=== PATIENT | male | born 1950 | race African-American/Black ===

== ENCOUNTER 2016-12-27 08:40 | Inpatient (IN) ==
[2016-12-27] MEDS ORDERED: ACETAMINOPHEN 325 MG TABLET PO PRN (08:50)
[2016-12-27 11:53] LABS: Basophils % 0.4 % (0.0-0.8); Eosinophils # 0.1 10*3/uL (0.0-0.87); Eosinophils % 1.9 % (0.00-10.9); Hematocrit 29.5 VOL% (42.0-52.0); Immature Granulocytes % 0.6 %; Immature Granulocytes Absolute 0.03 #; Lymphocytes # 1.1 10*3/uL (1.4-4.0); Lymphocytes % 23.8 % (21.2-54.2); Mean Corpuscular HGB Conc 33.9 GM/DL (32-36); Mean Corpuscular Hemoglobin 31 PG (27-34); Mean Corpuscular Volume 91.9 FL (87-102); Mean Platelet Volume 9.2 FL (9.6-12.0); Monocytes # 0.3 10*3/uL (0.11-0.8); Monocytes % 6.9 % (1.7-12.7); Neutrophils # 3.2 10*3/uL (1.4-7.4); Neutrophils % 66.4 % (38.7-73.9); Platelet Count 138 T/CUMM (130-400); Red Blood Count 3.21 MC/CUMM (3.8-5.5); Red Cell Distribution Width 16.1 % (9.3-17.3); White Blood Count 4.8 T/CUMM (4-12)
[2016-12-27] MEDS: DOCUSATE SODIUM 100 MG CAPSULE PO SCH ×2 (12:17→21:12)
[2016-12-27 12:33] LABS: Albumin 3.2 G/DL (3.4-5.0); Calcium 8.2 MG/DL (8.5-10.1); Magnesium 2.3 MG/DL (1.8-2.4); Potassium 4.2 MMOL/L (3.5-5.1); Risk Ratio 2.65; Thyroid Stimulating Hormone 3.08 uIU/ml (0.358-3.74); Total Protein 6.4 G/DL (6.4-8.3); VLDL CHOLESTEROL 39.6 MG/DL
--- NOTE | 2016-12-27 12:49 | EKG Report ---
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
--- NOTE | 2016-12-27 14:31 | Nephrology Consult Note ---
History of Present Illness Chief complaint: ESRD, SOB History of present illness: Mr. Erickson is a 66 year old male with end-stage renal disease who is status post remote left below-knee amputation. He describes 2-1/2 weeks of exertional dyspnea and orthopnea. He tells me that he has been getting to his usual dry weight of 133 kg at the dialysis unit. He denies any chest pain. He saw Dr. Miller today and was admitted for evaluation of the above problem. Much of his initial hospital workup is pending such as a chest x-ray. On exam he is in no distress while sitting at the bedside he does have 1+ edema of his right leg and trace sacral edema. On exam of his chest his lung owusu are fairly clear. His cardiac rhythm sounds regular with a rate of 70. He has no significant jugular venous distention. Impression #1 end-stage renal disease #2 shortness of breath with mild peripheral fluid overload and questionable pulmonary overload. #3 status post left below-knee amputation Plan will continue to dialyze Saturday and decreased weight as tolerated if there is pulmonary fluid overload we will further decrease his dry weight. Home Medications Medication Instructions Recorded Confirmed Type Lisinopril [Prinivil] 20 mg PO DAILY 02/15/15 12/27/16 History Simvastatin [Zocor] 20 mg PO BEDTIME 02/15/15 12/27/16 History Doxazosin [Cardura] 4 mg PO BEDTIME 01/28/16 12/27/16 History Allopurinol 300 mg PO DAILY 12/27/16 12/27/16 History Calcium Acetate [Calcium Acetate] 3 capsule PO TID W/MEALS 12/27/16 12/27/16 History Calcium Acetate [Calcium Acetate] 667 mg PO WITH SNACKS 12/27/16 12/27/16 History Cinacalcet HCl [Sensipar] 90 mg PO AC LUNCH 12/27/16 12/27/16 History Insulin Lispro Protamin/Lispro 15 units SUBCUT BID 12/27/16 12/27/16 History [HumaLOG Mix 75-25 KwikPen] Allergies Allergy/AdvReac Type Severity Reaction Status Date / Time No Known Allergies Allergy Verified 01/28/16 11:03 Medical,Surgical,& Family Hx - Medical History Cardio: History of: CHF (slight because of kidney, dm, htn status), Hypertension , PVD No history of: Congenital Heart Disease, CAD, [place], Pacemaker, Valvular Heart Disease, Cardiovascular Problems Psychological: No history of: Anxiety Disorders, ADHD, Behavior Problems Neurology: History of: Peripheral Neuropathy No history of: Brain Aneurysm, Cerebrovascular Accident, Cerebral Palsy, Dementia, Migraine, Multiple Sclerosis, Parkinson's Disease, Seizures, TIA, Vertigo, Neurologocal Cancer Endocrine: History of: Diabetes Mellitus (IDDM) No history of: Adrenal Disease, Diabetes Mellitus (NIDDM), Dyslipidemia, Thyroid Disorder, Endocrine Cancer, Endocrine Problems Respiratory: Comment Only: Obstructive Sleep Apnea (not dx with) Renal: History of: Dialysis (on [facility] on [address]), Renal Failure, Renal Problems No history of: Renal (Kidney) Cancer Genitourinary: History of: Bladder Problem, Problems No history of: Kidney Stones, Prostate Problems, Recurring Urinary Tract Infections, Genitourinary Cancer Gastrointestinal: History of: Gastrointestinal Bleed, Hemorrhoids, GI Problems ( DIARRHEA CONSTIPATION) No history of: Bowel Obstruction, Clostridium Difficile, Crohn's Disease, Diverticulitis/ Diverticulosis, Esophageal Varices, GERD, Hepatitis, Liver Problems, Pancreatitis, Polyps, Ulcerative Colitis, Gastrointestinal Cancer Musculoskeletal: History of: Amputation (left bka. right hand middle finger) Hematology: History of: Anemia No history of: Bleeding Problems, Clotting Problems, Sickle Cell Disease, Hematologic Cancer, Blood Disorders - Surgical History Cardiac Surgeries: Sugical HX of: Cardiac Catheterization Patient Denies: Femoral-Popliteal Bypass Graft, Cardiac Surgery, Carotid Endarterectomy, Internal Defibrillator, Vascular Access Devices Thoracic Surgeries: Patient denies;: Kidney (Renal Surgery), Lithotripsy, Nephrectomy, Organ Transplant, Lobectomy Neurologic Surgeries: Patient denies: Brain Aneurysm, Neurologic Surgery HEENT Surgeries: Patient denies: Carotid Endarterectomy, Eye Surgery, Thyroid Surgery, Tonsilectomy & Adenoidectomy Abdominal Surgeries: Surgical HX of: Abdominal Surgery, Cholecystectomy, Colonoscopy, EGD Patient denies: Appendectomy, Gastric Bypass Surgery, Hernia Repair, Splenectomy Reproductive Surgeries: Patient denies;: Cystoscopy, Genitourinary Surgery, Prostate Surgery Orthopedic Surgeries: Surgical HX of;: Orthopedic Surgery - Family History Family History: Reports;: Family Diabetes, Family Psychiatric Problems, Family Stroke - Social History Smoking Status: Never smoker Frequency of Alcohol Use: None Type of Drug Use: None Review of Systems 12 point system: reviewed and no additional remarkable complaints except as stated Exam - Vital Signs Vital signs: Period Temp Pulse Resp BP Sys/Enriquez Pulse Ox Last 24 Hr 98.1 F 60 20-20 185/85 88-95 - General Appearance General appearance: well-developed, well-nourished, appears started age EENT: ATNC Neck: no JVD, no thyromegaly, no carotid bruit, supple Respiratory: no kyphosis, no scoliosis Cardiology: no murmurs, no rub, no gallops, no edema, regular rate, regular rhythm, normal S1, normal S2 Gastrointestinal: normoactive bowel sounds Integumentary: no rash, warm and dry Neurologic: no focal deficit, no asterixis, alert and oriented x3, reflexes 2+ and symmetric, gait normal, strength 5/5 Musculoskeletal: no deformities, no erythema, no cyanosis, no clubbing Psychiatric: mood/affect appropriate (amputation left BKA), cooperative Results - Labs CBC & BMP: 12/27/16 11:44 12/27/16 11:44 Assessment and Plan (1) ESRD on hemodialysis Status: Chronic Assessment and plan: MWF hemodialysis with volume removal as appropriate Current Visit: No
--- NOTE | 2016-12-27 14:35 | XRay Report ---
Chest, 2 views History is short of breath Comparison 01/28/2016 The heart is enlarged. There remains moderate blunting of right costophrenic angle. The relative lucency at the lateral right chest is unchanged and could be related to pleural reflections or less likely a small amount of pleural air similar on the prior study. On the lateral film there is a more focal 5 cm rounded density posteriorly on the right felt to be related to hazy opacity more medially in the right mid chest grossly unchanged on the AP film in the interval. Mild linear opacity in the right lung base again seen. No consolidation seen on the left. Clips present in the lower neck Impression: Continued pleural and parenchymal opacities in the lower half right chest including a 5 cm rounded more focal density posteriorly on the lateral film. The lack of significant change since 11 months ago argues against underlying neoplasm. A rounded area of atelectasis could be considered however comparison with prior history and any additional prior films highly recommended to exclude underlying neoplasm or recurrent infiltrate. If any prior CTs are available these would certainly be helpful as well. PROCEDURE INTERPRETED AT [facility] DEPARTMENT OF RADIOLOGY Final Report Signed by: Dr. Abby Garcia
[2016-12-27] MEDS ORDERED: ONDANSETRON 4 MG/2 ML VIAL IV PRN (17:21)
[2016-12-27] MEDS ORDERED: MAGNESIUM SULF RIDER 4 GM in PREMIX 1 EACH IV PRN (17:21)
[2016-12-27] MEDS ORDERED: ZALEPLON 5 MG CAPSULE PO PRN (17:21)
[2016-12-27] MEDS ORDERED: MAGNESIUM SULF RIDER 2 GM in PREMIX 1 EACH IV PRN (17:21)
[2016-12-27] MEDS: cloNIDine 0.1 MG TABLET PO PRN (18:04)
[2016-12-27] MEDS: INSULIN LISPRO PROTAMINE/LISPRO 75/25 100 UNIT/ML SUBCUT SCH (18:14)
--- NOTE | 2016-12-27 18:35 | ECHO Report ---
Ming Erickson Exam Date: 12/27/2016 14:29 Referring Physician: Technologist: sulaiman Yepez ARDMS, RVT Age: 66 Ht (in): 75.5 Wt (lb): 313 Gender: M Exam Location: [facility] Echo Indications: Essential (primary) hypertension, Dyspnea, unspecified, End stage renal disease, Atrial fibrillation, DM, Anemia BP: 185 / 85 HR: 60 Rhythm: Sinus Technical Quality: Good IMPRESSIONS Mild left ventricular hypertrophy. Left ventricular ejection fraction is estimated at > 55 %. 1 + apical BRANDI Mild - 2+ apical LAE. Trace tricuspid valve regurgitation. Tricuspid regurgitation velocities suggest a PAP of 37 mmHg. Trace posterior effusion. MEASUREMENTS (Male / Female) Normal Values 2D ECHO LV Diastolic Diameter PLAX 5.8 cm 4.2 - 5.9 / 3.9 - 5.3 cm LV Systolic Diameter PLAX 2.9 cm LV Fractional Shortening PLAX 50.7 % IVS Diastolic Thickness 1.5 cm 0.6 - 1.0 / 0.6 - 0.9 cm LVPW Diastolic Thickness 1.4 cm 0.6 - 1.0 / 0.6 - 0.9 cm RV Internal Dim ED PLAX 3.5 cm Aortic Root Diameter 3.9 cm LA Systolic Diameter LX 5.3 cm 3.0 - 4.0 / 2.7 - 3.8 cm DOPPLER TR Peak Velocity 262.0 cm/s TR Peak Gradient 27.5 mmHg FINDINGS Left Ventricle Normal left ventricular cavity size. Mild left ventricular hypertrophy. Left ventricular ejection fraction is estimated at > 55 %. Right Ventricle The right ventricle is normal in size and function. Right Atrium 1 + apical BRANDI Left Atrium mild - 2+ apical LAE Mitral Valve Morphologically normal mitral valve without significant stenosis or prolapse. There is no mitral regurgitation. Aortic Valve Morphologically normal aortic valve without significant sclerosis or stenosis. There is no aortic regurgitation. Tricuspid Valve Morphologically normal tricuspid valve. Trace tricuspid valve regurgitation. Tricuspid regurgitation velocities suggest a PAP of 37 mmHg. Pulmonic Valve Morphologically normal pulmonic valve without significant stenosis. There is no pulmonic regurgitation. Pericardium Normal pericardium . trace posterior effusion. Aorta Normal ascending aorta dimension. Hal Campbell MD (Electronically Signed) Final Date: 27 December 2016 18:34
[2016-12-27 18:37] LABS: Troponin I Only 0.097 NG/ML (0.00-0.045)
[2016-12-27] MEDS: DOXAZOSIN 4 MG TABLET PO SCH (21:11)
[2016-12-27] MEDS: SIMVASTATIN 20 MG TABLET PO SCH (21:11)
[2016-12-27] MEDS ORDERED: DEXTROSE 50% 25 GM/50 ML VIAL IV PRN (22:05)
[2016-12-27] MEDS ORDERED: GLUCAGON 1 MG VIAL IM PRN (22:05)
[2016-12-27] MEDS: INSULIN REGULAR 100 UNIT/ML SUBCUT SCH (22:25)
--- NOTE | 2016-12-27 22:58 | Hospitalist Consult Note ---
Assessment and Plan (1) Amputation of left lower extremity below knee Status: Acute Current Visit: No (2) Diabetes mellitus Status: Chronic Current Visit: No (3) Hypertension Status: Chronic Current Visit: No (4) Dyspnea on exertion Status: Acute Assessment and plan: Suspect the dyspnea on exertion is multifactorial. I am going to concentrate on the diabetes. He has been started on his home dose we will add sliding scale for now. Adjustments can be made to his baseline regimen tomorrow. Check an A1c and will consult diabetic education if needed Current Visit: Yes History of Present Illness - Consult Narrative Reason for consult: Diabetes History of present illness: Mr. Erickson is a 66 year old male with past medical history of diabetes end-stage renal disease hypertension gout anemia who was sent up from Dr. Miller's office and directly admitted by cardiology. Patient reports the reason for admission was this dyspnea on exertion. He denies chest pain. He says he short of breath with a dry cough. He symptoms have steadily over increased over the past several days. He relates a story of having heart trouble getting his insulin straightened out. He only recently got back on 75 2516 units twice daily. We were consulted secondary to him having a high glucose. CC: Elizabeth Rodas, DO - Home Medications and Allergies Home Medications: Home Medications Medication Instructions Recorded Confirmed Type Lisinopril [Prinivil] 20 mg PO DAILY 02/15/15 12/27/16 History Simvastatin [Zocor] 20 mg PO BEDTIME 02/15/15 12/27/16 History Doxazosin [Cardura] 4 mg PO BEDTIME 01/28/16 12/27/16 History Allopurinol 300 mg PO DAILY 12/27/16 12/27/16 History Calcium Acetate [Calcium Acetate] 2,001 mg PO TID W/MEALS 12/27/16 12/27/16 History Calcium Acetate [Calcium Acetate] 667 mg PO WITH SNACKS 12/27/16 12/27/16 History Cinacalcet HCl [Sensipar] 90 mg PO AC LUNCH 12/27/16 12/27/16 History Insulin Lispro Protamin/Lispro 15 units SUBCUT BID 12/27/16 12/27/16 History [HumaLOG Mix 75-25 KwikPen] Allergies/Adverse Reactions: Allergies Allergy/AdvReac Type Severity Reaction Status Date / Time No Known Allergies Allergy Verified 01/28/16 11:03 Medical,Surgical,& Family Hx - Medical History Cardio: History of: CHF (slight because of kidney, dm, htn status), Hypertension , PVD No history of: Congenital Heart Disease, CAD, [place], Pacemaker, Valvular Heart Disease, Cardiovascular Problems Psychological: No history of: Anxiety Disorders, ADHD, Behavior Problems Neurology: History of: Peripheral Neuropathy No history of: Brain Aneurysm, Cerebrovascular Accident, Cerebral Palsy, Dementia, Migraine, Multiple Sclerosis, Parkinson's Disease, Seizures, TIA, Vertigo, Neurologocal Cancer Endocrine: History of: Diabetes Mellitus (IDDM) No history of: Adrenal Disease, Diabetes Mellitus (NIDDM), Dyslipidemia, Thyroid Disorder, Endocrine Cancer, Endocrine Problems Respiratory: Comment Only: Obstructive Sleep Apnea (not dx with) Renal: History of: Dialysis (on [facility] [address]), Renal Failure, Renal Problems No history of: Renal (Kidney) Cancer Genitourinary: History of: Bladder Problem, Problems No history of: Kidney Stones, Prostate Problems, Recurring Urinary Tract Infections, Genitourinary Cancer Gastrointestinal: History of: Gastrointestinal Bleed, Hemorrhoids, GI Problems ( DIARRHEA CONSTIPATION) No history of: Bowel Obstruction, Clostridium Difficile, Crohn's Disease, Diverticulitis/ Diverticulosis, Esophageal Varices, GERD, Hepatitis, Liver Problems, Pancreatitis, Polyps, Ulcerative Colitis, Gastrointestinal Cancer Musculoskeletal: History of: Amputation (left bka. right hand middle finger) Hematology: History of: Anemia No history of: Bleeding Problems, Clotting Problems, Sickle Cell Disease, Hematologic Cancer, Blood Disorders - Surgical History Cardiac Surgeries: Sugical HX of: Cardiac Catheterization Patient Denies: Femoral-Popliteal Bypass Graft, Cardiac Surgery, Carotid Endarterectomy, Internal Defibrillator, Vascular Access Devices Thoracic Surgeries: Patient denies;: Kidney (Renal Surgery), Lithotripsy, Nephrectomy, Organ Transplant, Lobectomy Neurologic Surgeries: Patient denies: Brain Aneurysm, Neurologic Surgery HEENT Surgeries: Patient denies: Carotid Endarterectomy, Eye Surgery, Thyroid Surgery, Tonsilectomy & Adenoidectomy Abdominal Surgeries: Surgical HX of: Abdominal Surgery, Cholecystectomy, Colonoscopy, EGD Patient denies: Appendectomy, Gastric Bypass Surgery, Hernia Repair, Splenectomy Reproductive Surgeries: Patient denies;: Cystoscopy, Genitourinary Surgery, Prostate Surgery Orthopedic Surgeries: Surgical HX of;: Orthopedic Surgery - Family History Family History: Reports;: Family Diabetes, Family Psychiatric Problems, Family Stroke - Social History Smoking Status: Never smoker Frequency of Alcohol Use: None Type of Drug Use: None 12 point system: reviewed and no additional remarkable complaints except as stated Exam - Constitutional Vitals: Period Temp Pulse Resp BP Sys/Enriquez Pulse Ox Last 24 Hr 98 F-98.1 F 60-60 20-20 185-215/85-93 88-95 General appearance: over weight - Head Head exam: Present: normal inspection - Eye Eye exam: Present: EOMI Pupils: Present: DARRIN - ENT ENT exam: Present: normal exam - Neck Neck exam: Present: normal inspection - Respiratory Respiratory exam: Present: clear to auscultation bilaterally - Cardiovascular Cardiovascular exam: Present: regular rate and rhythm - GI/Abdominal GI/Abdominal exam: Present: normal bowel sounds - Extremities Exam Extremities exam: Present: other (Patient has a BKA on the left) - Back Exam Back exam: Present: normal inspection - Neurological Exam Neurological exam: Present: alert, oriented X3 - Psychiatric Psychiatric exam: Present: normal affect, normal mood - Skin Skin exam: Present: normal color Results - Labs CBC & BMP: 12/27/16 11:44 12/27/16 11:44
[2016-12-27 23:20] LABS: Troponin I Only 0.098 NG/ML (0.00-0.045)
[2016-12-27] MEDS ORDERED: CALCIUM ACETATE 667 MG CAPSULE PO SCH (23:30)
[2016-12-28 04:14] LABS: Basophils % 0.7 % (0.0-0.8); Eosinophils # 0.1 10*3/uL (0.0-0.87); Eosinophils % 3.2 % (0.00-10.9); Hematocrit 29.8 VOL% (42.0-52.0); Hemoglobin 9.8 GM/DL (14.0-18.0); Immature Granulocytes % 0.7 %; Immature Granulocytes Absolute 0.03 #; Lymphocytes # 1.3 10*3/uL (1.4-4.0); Lymphocytes % 30.2 % (21.2-54.2); Mean Corpuscular HGB Conc 32.9 GM/DL (32-36); Mean Corpuscular Hemoglobin 30 PG (27-34); Mean Corpuscular Volume 91.7 FL (87-102); Mean Platelet Volume 9.9 FL (9.6-12.0); Monocytes # 0.4 10*3/uL (0.11-0.8); Neutrophils # 2.4 10*3/uL (1.4-7.4); Neutrophils % 55.2 % (38.7-73.9); Platelet Count 147 T/CUMM (130-400); Red Blood Count 3.25 MC/CUMM (3.8-5.5); Red Cell Distribution Width 16.1 % (9.3-17.3); White Blood Count 4.3 T/CUMM (4-12)
[2016-12-28 04:39] LABS: Calcium 8.2 MG/DL (8.5-10.1); Magnesium 2.4 MG/DL (1.8-2.4); Osmolality,Calculated 294.4 MOS/KG (273-304); Potassium 4.1 MMOL/L (3.5-5.1)
[2016-12-28 04:55] LABS: Troponin I Only 0.089 NG/ML (0.00-0.045)
--- NOTE | 2016-12-28 09:00 | EKG Report ---
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
--- NOTE | 2016-12-28 09:01 | Dialysis Note ---
Dialysis Note - Dialysis Note Mr. Erickson is seen in follow-up of his end-stage renal disease is dialyzing currently and tolerating it well. He will be pursuing his evaluation for shortness of breath today. His echocardiograms demonstrated good left ventricular ejection fraction. We anticipate his next dialysis on Saturday.
--- NOTE | 2016-12-28 09:08 | Cardiology Progress Note ---
Assessment and Plan - Time spent with patient Time spent with patient: Less than 30 minutes (1) Dyspnea on exertion Status: Acute Current Visit: Yes (2) Anemia Status: Chronic Current Visit: Yes (3) Amputation of left lower extremity below knee Status: Acute Current Visit: No (4) Hypertension Status: Chronic Current Visit: No (5) Diabetes mellitus Status: Chronic Current Visit: No (6) ESRD on hemodialysis Status: Chronic Current Visit: No (7) New onset atrial fibrillation Status: Acute Current Visit: Yes Cardiology - PN: Subj Interval history: LD TEACHER: DR. CHAVEZ Mr. Erickson is a 66 year old male with uncontrolled diabetes, uncontrolled hypertension, end stage renal disease on dialysis, and family history of coronary disease. He has risk factors significant for: diabetes, hypertension, obesity, sedentary lifestyle, family history of CAD. He is dialyzed on Saturday and Saturday. He also has a history of left BKA for diabetic complications, peripheral vessel disease, and infection. He was directly admitted from Dr. Chavez's office yesterday afternoon for further evaluation of dyspnea on exertion, anemia, and new onset atrial fibrillation. He tells me he has had shortness of breath for the past 3-4 weeks with this has significantly worsened approximately 2 weeks ago. He tells me he has had dyspnea trying to ambulate less than the distance of a room. He also reports being diagnosed with anemia approximately 7 years ago. He denies any melena or hematochezia. H&H on admission is stable at 10 and 29.5. Looking back at his previous labs, this appears to be around his baseline. We will check an anemia profile and stool for occult blood. Nephrology was consulted on admission. We also consulted hospital medicine to aid in management of his uncontrolled diabetes. He also reports orthopnea and PND but has never had a sleep study evaluation. We will consult sleep medicine for possible outpatient sleep study. ASSESSMENT/PLAN: 1. SANTANA - Likely multifactorial. Echocardiogram yesterday revealed EF>55%, Trace TR, mild LVH, trace posterior effusion. He has had flat troponins with normal CPK and CK-MB in the setting of chronic kidney disease. Given his symptoms, it was recommended that he be taken for left heart catheterization for further evaluation of his coronary anatomy. Mr. Erickson agreed. Following dialysis, he will be taken for LHC with Dr. Villareal. 2. ANEMIA - Suspect anemia of chronic disease secondary to end stage renal disease. H&H seems to be around the patient's baseline based on prior hospital labs. He denies any recent bleeding issues. We will check an anemia profile and occult stool. 3. HYPERTENSION - Uncontrolled. Will resume home medications, monitor, and make adjustments accordingly. 4. TYPE 2 DIABETES - Uncontrolled. Hospital medicine was consulted to aid in management. He is on sliding scale insulin. 5. ESRD ON DIALYSIS - He is followed by nephrology and dialyzes on Saturday, Saturday, and Saturday. 6. LEFT BKA - Chronic, due to diabetic complications, peripheral vessel disease , and infection. 7. NEW ONSET ATRIAL FIBRILLATION - EKG at [facility] showed atrial fibrillation with controlled rate. Upon arrival to [facility], patient had converted to NSR. He has been in SR since then but has a first degree AVB and has had some PACs. We will continue to monitor. He has had some bradycardia, so we will avoid starting any adrianna blocking agents at this time. Exam (Progress Note) - Constitutional Vitals: Period Temp Pulse Resp BP Sys/Enriquez Pulse Ox Last 24 Hr 96.8 F-98.4 F 56-62 18-22 166-215/63-96 88-98 Exam: General: Present: Appears Well, No Apparent Distress. Pleasant and cooperative. Appears comfortable. HEENT: Present: PERRL, Normocephaly, atraumatic. Mucus Membranes Moist. No jaundice noted. Conjunctiva moist and clear, sclerae anicteric Neck: Present: Supple Neck, Midline Trachea, No Masses, No Bruit, No tenderness Cardiac: Present: Regular Rate and Rhythm, No Murmur Lungs: Present: Clear to auscultation bilaterally, no wheeze, rhonchi. Neuro: Present: Awake, alert, and oriented x3. Moves all extremities well without hemiparesis or paralysis. Grossly Intact. Absent: Resting Tremor, Essential Tremor Abdomen: Present: Soft, Active Bowel Sounds, No Masses, Non-Tender, nondistended. No abdominal bruit or thrill noted. Skin: Present: Clear. Absent: Rash, No skin breakdown. Back: Normal inspection, no vertebral tenderness. Musculoskeletal: Present: No Fluid Collection, No Pain, Normal Range of Motion Extremities: Present: Normal Gait, No Clubbing, No Cyanosis, Upper Extr. Pulses 2+, RLE pulse 2+, L BKA, No edema. Capillary refill less than 3 seconds. Result/EKG - Labs CBC & BMP: 12/28/16 03:09 12/28/16 03:09 Lab Results: I have reviewed the past 24 hour labs Labs: Laboratory Results - last 24 hr 12/27/16 12/27/16 12/27/16 11:44 11:44 17:53 WBC 4.8 RBC 3.21 L Hgb 10.0 L Hct 29.5 L MCV 91.9 MCH 31 MCHC 33.9 RDW 16.1 Plt Count 138 MPV 9.2 L Neut % (Auto) 66.4 Lymph % (Auto) 23.8 Drew % (Auto) 6.9 Eos % (Auto) 1.9 Baso % (Auto) 0.4 Neut # (Auto) 3.2 Lymph # (Auto) 1.1 L Drew # (Auto) 0.3 Eos # (Auto) 0.1 Baso # (Auto) 0.0 Immature Gran % 0.6 Nucleated RBC % 0.0 Immature Gran # 0.03 Nucleated RBCs # 0.00 Sodium 136 Potassium 4.2 Chloride 96 L Carbon Dioxide 30 Anion Gap 14.2 BUN 36 H Creatinine 8.80 H GFR Calculation 10 BUN/Creatinine Ratio 4.00 L Glucose 445 H POC Glucose Hemoglobin A1c Calculated Osmolality 298.0 Calcium 8.2 L Magnesium 2.3 Total Bilirubin 0.80 L AST 14 ALT 19 Alkaline Phosphatase 195 H Total Creatine Kinase 234 CK-MB (CK-2) 1.9 Troponin I 0.097 H Total Protein 6.4 Albumin 3.2 L Globulin 3.2 Albumin/Globulin Ratio 1.0 L Triglycerides 198 H Cholesterol 106 LDL Cholesterol 36.0 VLDL Cholesterol 39.6 HDL Cholesterol 40 Heart Disease Risk Ratio 2.65 TSH 3rd Generation 3.080 12/27/16 12/27/16 12/27/16 18:14 21:07 22:42 WBC RBC Hgb Hct MCV MCH MCHC RDW Plt Count MPV Neut % (Auto) Lymph % (Auto) Drew % (Auto) Eos % (Auto) Baso % (Auto) Neut # (Auto) Lymph # (Auto) Drew # (Auto) Eos # (Auto) Baso # (Auto) Immature Gran % Nucleated RBC % Immature Gran # Nucleated RBCs # Sodium Potassium Chloride Carbon Dioxide Anion Gap BUN Creatinine GFR Calculation BUN/Creatinine Ratio Glucose POC Glucose 407 H 398 H Hemoglobin A1c Calculated Osmolality Calcium Magnesium Total Bilirubin AST ALT Alkaline Phosphatase Total Creatine Kinase 223 CK-MB (CK-2) 2.3 Troponin I 0.098 H Total Protein Albumin Globulin Albumin/Globulin Ratio Triglycerides Cholesterol LDL Cholesterol VLDL Cholesterol HDL Cholesterol Heart Disease Risk Ratio [facility] 3rd Generation 12/28/16 12/28/16 12/28/16 03:09 03:09 03:09 WBC 4.3 RBC 3.25 L Hgb 9.8 L Hct 29.8 L MCV 91.7 MCH 30 MCHC 32.9 RDW 16.1 Plt Count 147 MPV 9.9 Neut % (Auto) 55.2 Lymph % (Auto) 30.2 Drew % (Auto) 10.0 Eos % (Auto) 3.2 Baso % (Auto) 0.7 Neut # (Auto) 2.4 Lymph # (Auto) 1.3 L Drew # (Auto) 0.4 Eos # (Auto) 0.1 Baso # (Auto) 0.0 Immature Gran % 0.7 Nucleated RBC % 0.0 Immature Gran # 0.03 Nucleated RBCs # 0.00 Sodium Potassium Chloride Carbon Dioxide Anion Gap BUN Creatinine GFR Calculation BUN/Creatinine Ratio Glucose POC Glucose Hemoglobin A1c 10.4 H Calculated Osmolality Calcium Magnesium Total Bilirubin AST ALT Alkaline Phosphatase Total Creatine Kinase 202 CK-MB (CK-2) 1.5 Troponin I 0.089 H Total Protein Albumin Globulin Albumin/Globulin Ratio Triglycerides Cholesterol LDL Cholesterol VLDL Cholesterol HDL Cholesterol Heart Disease Risk Ratio [facility] 3rd Generation 12/28/16 12/28/16 03:09 07:47 WBC RBC Hgb Hct MCV MCH MCHC RDW Plt Count MPV Neut % (Auto) Lymph % (Auto) Drew % (Auto) Eos % (Auto) Baso % (Auto) Neut # (Auto) Lymph # (Auto) Drew # (Auto) Eos # (Auto) Baso # (Auto) Immature Gran % Nucleated RBC % Immature Gran # Nucleated RBCs # Sodium 140 Potassium 4.1 Chloride 99 Carbon Dioxide 31 Anion Gap 14.1 BUN 44 H Creatinine 10.40 H GFR Calculation 8 BUN/Creatinine Ratio 4.00 L Glucose 184 H POC Glucose 191 H Hemoglobin A1c Calculated Osmolality 294.4 Calcium 8.2 L Magnesium 2.4 Total Bilirubin AST ALT Alkaline Phosphatase Total Creatine Kinase CK-MB (CK-2) Troponin I Total Protein Albumin Globulin Albumin/Globulin Ratio Triglycerides Cholesterol LDL Cholesterol VLDL Cholesterol HDL Cholesterol Heart Disease Risk Ratio TSH 3rd Generation - EKG EKG results: interpreted by me, sinus rhythm (with first degree AVB) EKG shows: bradycardia
[2016-12-28] MEDS ORDERED: diphenhydrAMINE CAP 25 MG CAPSULE PO ONE (10:21)
[2016-12-28] MEDS ORDERED: POTASSIUM CHLORIDE RIDER 10 MEQ in PREMIX 1 EACH IV PRN (10:21)
[2016-12-28] MEDS ORDERED: DIAZEPAM 5 MG TABLET PO ONE (10:37)
[2016-12-28] MEDS: INSULIN LISPRO PROTAMINE/LISPRO 75/25 100 UNIT/ML SUBCUT SCH ×2 (10:48→17:04)
[2016-12-28] MEDS: DOCUSATE SODIUM 100 MG CAPSULE PO SCH ×2 (10:48→22:16)
[2016-12-28] MEDS: INSULIN REGULAR 100 UNIT/ML SUBCUT SCH ×4 (10:48→22:14)
[2016-12-28] MEDS: CALCIUM ACETATE 667 MG CAPSULE PO SCH ×3 (10:48→17:04)
[2016-12-28 11:29] LABS: Bilirubin,Total 0.8 MG/DL (0.2-1.0)
[2016-12-28 12:13] LABS: Basophils % 0.4 % (0.0-0.8); Eosinophils # 0.1 10*3/uL (0.0-0.87); Hematocrit 31.8 VOL% (42.0-52.0); Hemoglobin 10.5 GM/DL (14.0-18.0); Immature Granulocytes % 0.4 %; Immature Granulocytes Absolute 0.02 #; Lymphocytes # 1.2 10*3/uL (1.4-4.0); Lymphocytes % 25.3 % (21.2-54.2); Mean Corpuscular Hemoglobin 31 PG (27-34); Mean Corpuscular Volume 92.4 FL (87-102); Mean Platelet Volume 10.3 FL (9.6-12.0); Monocytes # 0.4 10*3/uL (0.11-0.8); Monocytes % 8.4 % (1.7-12.7); Neutrophils # 2.9 10*3/uL (1.4-7.4); Neutrophils % 62.5 % (38.7-73.9); Platelet Count 151 T/CUMM (130-400); Red Blood Count 3.44 MC/CUMM (3.8-5.5); Red Cell Distribution Width 16.1 % (9.3-17.3); White Blood Count 4.7 T/CUMM (4-12)
--- NOTE | 2016-12-28 12:36 | Sleep Medicine Consult ---
Assessment and Plan (1) Unspecified sleep apnea Status: Acute Assessment and plan: His symptoms certainly are very concerning for sleep apnea and he definitely needs polysomnography. We will set this up at the next available date as an outpatient. Thank you for this consult and the opportunity to participate in his care. Current Visit: Yes (2) New onset atrial fibrillation Status: Acute Assessment and plan: Untreated sleep apnea can be a risk factor for atrial fibrillation in fact, the prevalence for sleep apnea in these patients can be as high as 80%. Treating the underlying sleep apnea can reduce recurrence by almost 50%. Current Visit: Yes (3) Hypertension Status: Chronic Assessment and plan: The prevalence rate for obstructive sleep apnea patients with hypertension is 35 %. That rate can be as high as 80% in patients who require 4 or more medications for blood pressure control. Current Visit: No (4) Diabetes mellitus Status: Chronic Assessment and plan: The prevalence rate for obstructive sleep apnea in patients with type 2 diabetes can be as high as 86%. Those patients with moderate to severe obstructive sleep apnea are at a greater risk for diabetic nephropathy and neuropathy. Compliance with CPAP therapy for these patients can lead to improvement in glycemic control and improvement in insulin sensitivity. Current Visit: No History of Present Illness Chief complaint: Sleep apnea History of present illness: Mr. Erickson is a 66 year old male admitted with multiple health problems including end-stage renal disease. During the course of his evaluation, it was noted that he had multiple risks and historical factors concerning for sleep apnea. He snores very loudly and has difficulty maintaining sleep. He has frequent awakenings during the night. He is bothered by daytime fatigue and sleepiness with unrefreshing sleep. He easily naps whenever he sits steel. He has never been told that he stops breathing during his sleep. He denies any history of restless legs or leg jerks. He does have a history of nocturia in the past before he developed end-stage renal disease. Home Medications Medication Instructions Recorded Confirmed Type Lisinopril [Prinivil] 20 mg PO DAILY 02/15/15 12/27/16 History Simvastatin [Zocor] 20 mg PO BEDTIME 02/15/15 12/27/16 History Doxazosin [Cardura] 4 mg PO BEDTIME 01/28/16 12/27/16 History Allopurinol 300 mg PO DAILY 12/27/16 12/27/16 History Calcium Acetate [Calcium Acetate] 2,001 mg PO TID W/MEALS 12/27/16 12/27/16 History Calcium Acetate [Calcium Acetate] 667 mg PO WITH SNACKS 12/27/16 12/27/16 History Cinacalcet HCl [Sensipar] 90 mg PO AC LUNCH 12/27/16 12/27/16 History Insulin Lispro Protamin/Lispro 15 units SUBCUT BID 12/27/16 12/27/16 History [HumaLOG Mix 75-25 KwikPen] Loperamide Cap [Imodium Cap] 2 mg PO BIDPC 12/27/16 12/27/16 History Simethicone [Gas-X] 1 capsule PO BIDPC 12/27/16 12/27/16 History Allergies Allergy/AdvReac Type Severity Reaction Status Date / Time No Known Allergies Allergy Verified 01/28/16 11:03 Review of systems: Otherwise unremarkable from a sleep standpoint. Exam (Pulmonay) H&P - Constitutional Vitals: Period Temp Pulse Resp BP Sys/Enriquez Pulse Ox Last 24 Hr 96.8 F-98.4 F 56-62 18-22 158-215/57-96 92-98 Exam: He is alert and very pleasant. He is in hemodialysis. Pupils equal round reactive to light and accommodation. Extraocular movements intact. Oropharynx with a class IV Mallampati exam. Neck is supple without adenopathy or thyromegaly. No supraclavicular adenopathy is noted. Chest with symmetrical breath sounds without focal wheeze, rhonchi, or rales. Cardiac exam reveals a regular rhythm without murmur or gallop. Abdomen obese nontender without palpable hepatosplenomegaly or mass. Extremities are without clubbing, cyanosis , or edema. He does have a BKA on his left lower extremity. Neurologically, he is grossly intact. He moves all extremities with good strength. Medical,Surgical,& Family Hx - Medical History Cardio: History of: CHF (slight because of kidney, dm, htn status), Hypertension , PVD No history of: Congenital Heart Disease, CAD, MS, Pacemaker, Valvular Heart Disease, Cardiovascular Problems Psychological: No history of: Anxiety Disorders, ADHD, Behavior Problems Neurology: History of: Peripheral Neuropathy No history of: Brain Aneurysm, Cerebrovascular Accident, Cerebral Palsy, Dementia, Migraine, Multiple Sclerosis, Parkinson's Disease, Seizures, TIA, Vertigo, Neurologocal Cancer Endocrine: History of: Diabetes Mellitus (IDDM) No history of: Adrenal Disease, Diabetes Mellitus (NIDDM), Dyslipidemia, Thyroid Disorder, Endocrine Cancer, Endocrine Problems Respiratory: Comment Only: Obstructive Sleep Apnea (not dx with) Renal: History of: Dialysis (on [facility] on [address]), Renal Failure, Renal Problems No history of: Renal (Kidney) Cancer Genitourinary: History of: Bladder Problem, Problems No history of: Kidney Stones, Prostate Problems, Recurring Urinary Tract Infections, Genitourinary Cancer Gastrointestinal: History of: Gastrointestinal Bleed, Hemorrhoids, GI Problems ( DIARRHEA [employer]IPATION) No history of: Bowel Obstruction, Clostridium Difficile, Crohn's Disease, Diverticulitis/ Diverticulosis, Esophageal Varices, GERD, Hepatitis, Liver Problems, Pancreatitis, Polyps, Ulcerative Colitis, Gastrointestinal Cancer Musculoskeletal: History of: Amputation (left bka. right hand middle finger) Hematology: History of: Anemia No history of: Bleeding Problems, Clotting Problems, Sickle Cell Disease, Hematologic Cancer, Blood Disorders - Surgical History Cardiac Surgeries: Sugical HX of: Cardiac Catheterization Patient Denies: Femoral-Popliteal Bypass Graft, Cardiac Surgery, Carotid Endarterectomy, Internal Defibrillator, Vascular Access Devices Thoracic Surgeries: Patient denies;: Kidney (Renal Surgery), Lithotripsy, Nephrectomy, Organ Transplant, Lobectomy Neurologic Surgeries: Patient denies: Brain Aneurysm, Neurologic Surgery HEENT Surgeries: Patient denies: Carotid Endarterectomy, Eye Surgery, Thyroid Surgery, Tonsilectomy & Adenoidectomy Abdominal Surgeries: Surgical HX of: Abdominal Surgery, Cholecystectomy, Colonoscopy, EGD Patient denies: Appendectomy, Gastric Bypass Surgery, Hernia Repair, Splenectomy Reproductive Surgeries: Patient denies;: Cystoscopy, Genitourinary Surgery, Prostate Surgery Orthopedic Surgeries: Surgical HX of;: Orthopedic Surgery - Family History Family History: Reports;: Family Diabetes, Family Psychiatric Problems, Family Stroke - Social History Smoking Status: Never smoker Frequency of Alcohol Use: None Type of Drug Use: None Results - Labs CBC & BMP: 12/28/16 11:49 12/28/16 03:09 Lab Results: I have reviewed the past 24 hour labs
[2016-12-28 12:54] LABS: Folate 5.5 NG/ML (5.4-24.0); Vitamin B12 712 PG/ML (211-911)
[2016-12-28 13:20] LABS: Sedimentation Rate-Westergren 100 MM/HR (0-20)
[2016-12-28] MEDS ORDERED: fentaNYL 100 MCG/2 ML VIAL ONE (13:39)
[2016-12-28] MEDS ORDERED: MIDAZOLAM 2 MG/2 ML VIAL ONE (13:39)
[2016-12-28] MEDS ORDERED: HEPARIN/NACL 0.9% 2 UNITS/ML 1,000 ML IV ONE (13:40)
[2016-12-28] MEDS ORDERED: LIDOCAINE 1% 20 ML VIAL ONE (13:40)
--- NOTE | 2016-12-28 13:48 | History and Physical Update ---
Sedation H&P Update - History and Physical H&P was reviewed, the patient examined and there: are no changes in the patients condition since last H&P was completed. - Sedation Plan for Sedation: moderate Patient Consent: Procedure disscussed with patient and patinet has consented., Risks and benefits were discussed with patient,including infection,, bleeding, injury to surrounding structures, seizure, temporary nerve, Patient understands and accepts potential risks/benefits and agrees to, proceed. ASA Class: III Airway Assessment: Class IV: Only hard palate visible
--- NOTE | 2016-12-28 14:16 | Cardiac Catheterization ---
Date of Procedure:: 12/28/16 Pre-op Diagnosis: 66-year-old patient with end-stage renal disease presents with extreme dyspnea and fatigue and the concern relates to whether this is an anginal equivalent. He is for diagnostic evaluation intervention if indicated Procedure: Procedures performed: Left heart catheterization Coronary arteriography Left ventriculography [Right] femoral sheath angiography Mynx closure femoral arteriotomy site After obtaining informed consent the patient was brought to the catheterization lab where the [right] groin was prepped and draped in the usual sterile manner. After intravenous sedation and local anesthesia a needle stick was made to the right femoral artery and a [6 [place] sheath] was positioned without difficulty. A left heart catheterization was undertaken using first a Ina left diagnostic catheter. The catheter was advanced under fluoroscopy over a guidewire and positioned with its tip in the ostium of the left main coronary artery. Multiple angiograms were obtained of the left coronary artery in multiple views. After adequate angiogram to left coronary obtain this catheter was withdrawn and an AMRM right coronary catheter was advanced over a guidewire under fluoroscopic control where angiography of the right coronary artery was undertaken in multiple views. After adequate angiograms of the right coronary artery were obtained this catheter was withdrawn. A pigtail ventriculographic catheter was advanced over a guidewire under fluoroscopic control to the ascending aorta where it was advanced across the aortic valve and intraventricular hemodynamics were measured. A ventriculogram was obtained in the MALIK projection and afterward a pullback was obtained from the ventricle to the aorta under hemodynamic monitoring and removed. At this point the patient underwent right femoral sheath angiography which demonstrated anatomy appropriate for Mynx closure. This was performed without difficulty and good hemostasis was obtained. The patient then was transferred back to the sparks having suffered no significant immediate complications. Hemodynamics: Please see the accompanying data sheet Coronary arteriography: Left coronary artery: The left main coronary artery is well-developed and free of significant obstructing lesions. The circumflex coronary is a large nondominant vessel with possesses no significant lesions to its course. The branches of the circumflex likewise are free of significant obstructing lesions. The left anterior descending coronary artery is a large vessel that extends around the apex of the ventricle. The possesses no significant lesions throughout its course. The LAD and its remaining branches are free of significant obstructing lesions. Right coronary artery: The right coronary artery is large vessel that is dominant and is free of significant obstructing lesions. The PDA and posterolateral branches likewise are free of significant obstructing lesions. Left ventriculography: After injection of contrast left ventricle is known to be mildly enlarged with diffuse moderate to severe left ventricular hypokinesis overall ejection fraction is in the 35% range. Mitral and aortic structures appear normal by ventriculography. Right femoral sheath angiography: After injection of contrast in the right femoral arterial sheath it is noted be of normal caliber and enters above the bifurcation. The distal iliac, common femoral and bifurcation appear to be free of significant obstructing lesions based on this limited angiographic study. Conclusions: Angiographically no evidence of significant fixed coronary obstruction. Nonischemic cardiomyopathy ejection fraction 35% range Normal end-diastolic pressures at rest Mynx closure right femoral arteriotomy site Discussion and recommendations: This patient presents with exertional fatigue and the concern was this was a anginal equivalent. By this study does not have significant epicardial coronary disease and is noted to have LV dysfunction with an ejection fraction of the 35% range. I suspect that this is related to long-standing hypertension. He does have chronic anemia and this will need to be evaluated. I do not see good evidence that is got significant ischemic heart disease based on this angiographic study. Surgeon / Physician: Reed Villareal - Medications / Follow-up
[2016-12-28] MEDS ORDERED: DEXTROSE 50% 25 GM/50 ML VIAL IV PRN (14:23)
[2016-12-28] MEDS ORDERED: GLUCAGON 1 MG VIAL IM PRN (14:23)
--- NOTE | 2016-12-28 16:51 | Hospitalist Progress Note ---
Assessment and Plan - Time spent with patient Time spent with patient: Less than 30 minutes (1) Amputation of left lower extremity below knee Status: Acute Assessment and plan: Glucose level improved significantly. Continue current insulin treatment regimen. Current Visit: No (2) Diabetes mellitus Status: Chronic Current Visit: No (3) Hypertension Status: Chronic Assessment and plan: Continue current treatment plan. Current Visit: No (4) ESRD on hemodialysis Status: Chronic Assessment and plan: Tolerated HD well today. Continue HD per Nephrology. Current Visit: No (5) Dyspnea on exertion Status: Acute Current Visit: Yes Hospitalist: Subjective Interval history: No overnight acute event. Had HD and cardiac cath toady. Feeling better. Fasting glucose level is 191 this morning. Exam - Constitutional Vitals: Period Temp Pulse Resp BP Sys/Enriquez Pulse Ox Last 24 Hr 96.8 F-98.4 F 56-62 18-22 153-207/57-96 92-98 Exam: GENERAL: NAD, AAOx3. HEENT: Pupils equally round and reactive to light, conjunctivae clear. Oropharynx pink, with moist mucous membranes. Normal lips, teeth and gums. NECK: Supple without mass. HEART: RRR, no murmur. CHEST: Normal shape, good air movement, no retractions. CV: RRR, no murmurs, 2+ peripheral pulses LUNGS: Clear to auscultation; no rales, rhonchi, or wheezes. ABDOMEN: Soft, nontender, and no hepatosplenomegaly. SKIN: No rash. LYMPH: No anterior or posterior cervical, or supraclavicular lymphadenopathy. NEURO: AAOx3 Results - Labs CBC & BMP: 12/28/16 11:49 12/28/16 03:09 Quality Measures - VTE Contraindication to Pharmacological VTE Prophylaxis: High Risk of Bleeding
[2016-12-28] MEDS: LISINOPRIL 20 MG TABLET PO SCH (17:04)
[2016-12-28] MEDS: CINACALCET 30 MG TABLET PO SCH (17:04)
[2016-12-28] MEDS: ALLOPURINOL 300 MG TABLET PO SCH (17:04)
[2016-12-28] MEDS: DOXAZOSIN 4 MG TABLET PO SCH (22:17)
[2016-12-28] MEDS: SIMVASTATIN 20 MG TABLET PO SCH (22:31)
[2016-12-29 04:51] LABS: Basophils % 0.7 % (0.0-0.8); Eosinophils # 0.1 10*3/uL (0.0-0.87); Eosinophils % 2.1 % (0.00-10.9); Hematocrit 29.5 VOL% (42.0-52.0); Hemoglobin 9.8 GM/DL (14.0-18.0); Immature Granulocytes % 0.5 %; Immature Granulocytes Absolute 0.02 #; Lymphocytes # 1.2 10*3/uL (1.4-4.0); Lymphocytes % 27.4 % (21.2-54.2); Mean Corpuscular HGB Conc 33.2 GM/DL (32-36); Mean Corpuscular Hemoglobin 31 PG (27-34); Mean Corpuscular Volume 91.9 FL (87-102); Mean Platelet Volume 10.5 FL (9.6-12.0); Monocytes # 0.4 10*3/uL (0.11-0.8); Monocytes % 9.3 % (1.7-12.7); Neutrophils # 2.5 10*3/uL (1.4-7.4); Platelet Count 158 T/CUMM (130-400); Red Blood Count 3.21 MC/CUMM (3.8-5.5); White Blood Count 4.2 T/CUMM (4-12)
[2016-12-29 05:19] LABS: Calcium 8.4 MG/DL (8.5-10.1); Magnesium 2.4 MG/DL (1.8-2.4); Osmolality,Calculated 287.7 MOS/KG (273-304); Potassium 4.6 MMOL/L (3.5-5.1)
[2016-12-29] MEDS: cloNIDine 0.1 MG TABLET PO PRN ×2 (05:30→21:07)
[2016-12-29] MEDS: LISINOPRIL 20 MG TABLET PO SCH (09:13)
[2016-12-29] MEDS: ALLOPURINOL 300 MG TABLET PO SCH (09:13)
[2016-12-29] MEDS: DOCUSATE SODIUM 100 MG CAPSULE PO SCH ×2 (09:13→21:12)
[2016-12-29] MEDS: INSULIN LISPRO PROTAMINE/LISPRO 75/25 100 UNIT/ML SUBCUT SCH ×2 (09:14→17:05)
[2016-12-29] MEDS: LOPERAMIDE 2 MG CAPSULE PO PRN (09:14)
[2016-12-29] MEDS: INSULIN REGULAR 100 UNIT/ML SUBCUT SCH ×4 (09:15→21:05)
[2016-12-29] MEDS: CALCIUM ACETATE 667 MG CAPSULE PO SCH ×3 (09:20→17:05)
--- NOTE | 2016-12-29 10:51 | Cardiology Progress Note ---
Assessment and Plan (1) Dyspnea on exertion Status: Acute Assessment and plan: Patient's dyspnea on exertion is likely multifactorial including nonischemic cardiomyopathy is partial explanation. He is significantly deconditioned and is for sleep study to be certain that sleep apnea is not playing some role. I think overall from a cardiac standpoint he is reasonably stable and we will continue to follow. Current Visit: Yes (2) Diabetes mellitus Status: Chronic Current Visit: No (3) Hypertension Status: Chronic Current Visit: No Cardiology - PN: Subj Interval history: This patient is stable post catheterization. He has an ejection fraction of 35 % with angiographically no evidence of significant fixed coronary obstruction. He will continue medical therapy for his myopathy and for his nonocclusive CAD. Exam (Progress Note) - Constitutional Vitals: Period Temp Pulse Resp BP Sys/Enriquez Pulse Ox Last 24 Hr 97.0 F-98.2 F 45-65 16-20 132-191/48-90 94-98 Result/EKG - Labs CBC & BMP: 12/29/16 03:53 12/29/16 03:53 Labs: Laboratory Results - last 24 hr 12/27/16 12/28/16 12/28/16 11:44 06:00 11:49 WBC 4.7 RBC 3.44 L Hgb 10.5 L Hct 31.8 L MCV 92.4 MCH 31 MCHC 33.0 RDW 16.1 Plt Count 151 MPV 10.3 Neut % (Auto) 62.5 Lymph % (Auto) 25.3 [place] % (Auto) 8.4 Eos % (Auto) 3.0 Baso % (Auto) 0.4 Neut # (Auto) 2.9 Lymph # (Auto) 1.2 L [place] # (Auto) 0.4 Eos # (Auto) 0.1 Baso # (Auto) 0.0 Immature Gran % 0.4 Nucleated RBC % 0.0 Immature Gran # 0.02 Nucleated RBCs # 0.00 ESR Westergren 100 H Absolute Retic 0.1 Percent Retic 2.5 H Retic Hgb Equivalent 30.6 Sodium Potassium Chloride Carbon Dioxide Anion Gap BUN Creatinine GFR Calculation BUN/Creatinine Ratio Glucose POC Glucose Calculated Osmolality Calcium Magnesium Ferritin 2040.3 H Total Bilirubin 0.80 Vitamin B12 Folate DIMITRIS (IgG-AHG) DIMITRIS, Polyspecific 12/28/16 12/28/16 12/28/16 11:49 11:49 11:57 WBC RBC Hgb Hct MCV MCH MCHC RDW Plt Count MPV Neut % (Auto) Lymph % (Auto) [place] % (Auto) Eos % (Auto) Baso % (Auto) Neut # (Auto) Lymph # (Auto) [place] # (Auto) Eos # (Auto) Baso # (Auto) Immature Gran % Nucleated RBC % Immature Gran # Nucleated RBCs # ESR [place] Absolute Retic Percent Retic Retic Hgb Equivalent Sodium Potassium Chloride Carbon Dioxide Anion Gap BUN Creatinine GFR Calculation BUN/Creatinine Ratio Glucose POC Glucose 153 H Calculated Osmolality Calcium Magnesium Ferritin Total Bilirubin Vitamin B12 712 Folate 5.5 DIMITRIS (IgG-AHG) Negative DIMITRIS, Polyspecific Negative 12/28/16 12/28/16 12/29/16 15:14 21:54 03:53 WBC 4.2 RBC 3.21 L Hgb 9.8 L Hct 29.5 L MCV 91.9 MCH 31 MCHC 33.2 RDW 16.0 Plt Count 158 MPV 10.5 Neut % (Auto) 60.0 Lymph % (Auto) 27.4 [place] % (Auto) 9.3 Eos % (Auto) 2.1 Baso % (Auto) 0.7 Neut # (Auto) 2.5 Lymph # (Auto) 1.2 L [place] # (Auto) 0.4 Eos # (Auto) 0.1 Baso # (Auto) 0.0 Immature Gran % 0.5 Nucleated RBC % 0.0 Immature Gran # 0.02 Nucleated RBCs # 0.00 ESR [place]gren Absolute Retic Percent Retic Retic Hgb Equivalent Sodium Potassium Chloride Carbon Dioxide Anion Gap BUN Creatinine GFR Calculation BUN/Creatinine Ratio Glucose POC Glucose 209 H 369 H Calculated Osmolality Calcium Magnesium Ferritin Total Bilirubin Vitamin B12 Folate DIMITRIS (IgG-AHG) DIMITRIS, Polyspecific 12/29/16 03:53 WBC RBC Hgb Hct MCV MCH MCHC RDW Plt Count MPV Neut % (Auto) Lymph % (Auto) [place] % (Auto) Eos % (Auto) Baso % (Auto) Neut # (Auto) Lymph # (Auto) [place] # (Auto) Eos # (Auto) Baso # (Auto) Immature Gran % Nucleated RBC % Immature Gran # Nucleated RBCs # ESR W[place]gren Absolute Retic Percent Retic Retic Hgb Equivalent Sodium 138 Potassium 4.6 Chloride 98 Carbon Dioxide 29 Anion Gap 15.6 H BUN 33 H Creatinine 8.40 H GFR Calculation 11 BUN/Creatinine Ratio 3.00 L Glucose 208 H POC Glucose Calculated Osmolality 287.7 Calcium 8.4 L Magnesium 2.4 Ferritin Total Bilirubin Vitamin B12 Folate DIMITRIS (IgG-AHG) DIMITRIS, Polyspecific Quality Measures - VTE Contraindication to Pharmacological VTE Prophylaxis: High Risk of Bleeding
[2016-12-29] MEDS ORDERED: EPOETIN ALFA 10,000 UNIT/1 ML VIAL IV PRN (11:02)
--- NOTE | 2016-12-29 11:02 | Nephrology Progress Note ---
Nephrology - PN: Subj Interval history: Patient denies nausea or vomiting. Review of systems pulmonary-patient states he has been having dyspnea on exertion for the past 3 weeks, his coronary angiogram showed an ejection fraction of around 35% but no significant coronary artery lesions, chest x-ray shows some chronic changes to his right lower lobe with the elevated diaphragm that was present a year or so ago Physical exam general the patient's in no acute distress, he has no pitting edema Assessment/plan 1. Dyspnea on exertion-I agree that this is probably multifactorial in origin related to anemia and nonischemic cardiomyopathy, he is to have a sleep study done Saturday. He may have a little bit of excess fluid based on some increased interstitial markings seen at the right lower lung zone and it may be worth challenging his dry weight. 2. End-stage renal disease 3. Diabetes 4. Anemia-we will make sure he is getting EPO on dialysis Exam (PN)-Nephrology - Vital Signs Vital signs: Period Temp Pulse Resp BP Sys/Enriquez Pulse Ox Last 24 Hr 97.0 F-98.2 F 45-65 16-20 132-191/48-90 94-98 - Lab 12/29/16 03:53 12/29/16 03:53 Most recent lab results Calcium 8.4 MG/DL (8.5-10.1) L 12/29/16 03:53 Magnesium 2.4 MG/DL (1.8-2.4) 12/29/16 03:53
[2016-12-29] MEDS: INSULIN GLARGINE 100 UNIT/ML SUBCUT SCH (11:27)
--- NOTE | 2016-12-29 11:33 | Hospitalist Progress Note ---
Assessment and Plan (1) Amputation of left lower extremity below knee Status: Acute Assessment and plan: Glucose level improved significantly. Continue current insulin treatment regimen. Current Visit: No (2) Diabetes mellitus Status: Chronic Assessment and plan: Continue insulin. Need to f/u with PCP closely or see endocrinology after discharge from hospital to continue to pursue tight glucose control for his DM. Current Visit: No (3) Hypertension Status: Chronic Assessment and plan: BP 132/57 this am. Continue HD as scheduled. Continue current treatment plan. Current Visit: No (4) ESRD on hemodialysis Status: Chronic Assessment and plan: Tolerated HD well today. Continue HD per Nephrology. Current Visit: No (5) Dyspnea on exertion Status: Acute Current Visit: Yes Hospitalist: Subjective Interval history: No overnight acute event. Had HD and cardiac cath yesterday. Feeling better. Fasting glucose level is 209 this morning. BP 132/57 this am. Deny fever, headache, chest pain or abd pain. Exam - Constitutional Vitals: Period Temp Pulse Resp BP Sys/Enriquez Pulse Ox Last 24 Hr 97.0 F-98.2 F 45-65 16-20 132-191/48-90 94-98 Exam: GENERAL: NAD, AAOx3. HEENT: Pupils equally round and reactive to light, conjunctivae clear. Oropharynx pink, with moist mucous membranes. Normal lips, teeth and gums. NECK: Supple without mass. HEART: RRR, no murmur. CHEST: Normal shape, good air movement, no retractions. CV: RRR, no murmurs, 2+ peripheral pulses LUNGS: Clear to auscultation; no rales, rhonchi, or wheezes. ABDOMEN: Soft, nontender, and no hepatosplenomegaly. SKIN: No rash. LYMPH: No anterior or posterior cervical, or supraclavicular lymphadenopathy. NEURO: AAOx3 Results - Labs CBC & BMP: 12/29/16 03:53 12/29/16 03:53 Quality Measures - VTE Contraindication to Pharmacological VTE Prophylaxis: High Risk of Bleeding
[2016-12-29] MEDS: CINACALCET 30 MG TABLET PO SCH (12:11)
[2016-12-29] MEDS: SIMETHICONE CHEW 80 MG TABLET PO SCH ×3 (13:59→21:10)
[2016-12-29] MEDS: DOXAZOSIN 4 MG TABLET PO SCH (21:07)
[2016-12-29] MEDS: SIMVASTATIN 20 MG TABLET PO SCH (21:08)
[2016-12-30 04:26] LABS: Basophils % 0.5 % (0.0-0.8); Eosinophils # 0.1 10*3/uL (0.0-0.87); Eosinophils % 3.3 % (0.00-10.9); Hematocrit 28.3 VOL% (42.0-52.0); Hemoglobin 9.1 GM/DL (14.0-18.0); Immature Granulocytes % 0.5 %; Immature Granulocytes Absolute 0.02 #; Lymphocytes # 1.3 10*3/uL (1.4-4.0); Lymphocytes % 32.3 % (21.2-54.2); Mean Corpuscular HGB Conc 32.2 GM/DL (32-36); Mean Corpuscular Hemoglobin 30 PG (27-34); Mean Corpuscular Volume 92.5 FL (87-102); Mean Platelet Volume 9.7 FL (9.6-12.0); Monocytes # 0.3 10*3/uL (0.11-0.8); Monocytes % 8.3 % (1.7-12.7); Neutrophils # 2.2 10*3/uL (1.4-7.4); Neutrophils % 55.1 % (38.7-73.9); Platelet Count 153 T/CUMM (130-400); Red Blood Count 3.06 MC/CUMM (3.8-5.5); Red Cell Distribution Width 15.9 % (9.3-17.3)
[2016-12-30 04:54] LABS: Calcium 8.1 MG/DL (8.5-10.1); Magnesium 2.4 MG/DL (1.8-2.4); Osmolality,Calculated 294.3 MOS/KG (273-304); Potassium 4.6 MMOL/L (3.5-5.1)
[2016-12-30] MEDS: SIMETHICONE CHEW 80 MG TABLET PO SCH ×5 (08:12→21:27)
[2016-12-30] MEDS: CALCIUM ACETATE 667 MG CAPSULE PO SCH ×3 (08:12→17:14)
[2016-12-30] MEDS: ALLOPURINOL 300 MG TABLET PO SCH (08:13)
[2016-12-30] MEDS: DOCUSATE SODIUM 100 MG CAPSULE PO SCH ×3 (08:13→21:26)
[2016-12-30] MEDS: INSULIN LISPRO PROTAMINE/LISPRO 75/25 100 UNIT/ML SUBCUT SCH ×2 (08:14→17:15)
[2016-12-30] MEDS: INSULIN GLARGINE 100 UNIT/ML SUBCUT SCH (08:15)
[2016-12-30] MEDS: LISINOPRIL 20 MG TABLET PO SCH ×2 (08:16→21:25)
--- NOTE | 2016-12-30 08:22 | Cardiology Progress Note ---
Assessment and Plan (1) Dyspnea on exertion Status: Acute Assessment and plan: Patient's dyspnea on exertion is likely multifactorial including nonischemic cardiomyopathy is partial explanation. He is significantly deconditioned and is for sleep study to be certain that sleep apnea is not playing some role. I think overall from a cardiac standpoint he is reasonably stable and we will continue to follow. 12/30: We will check room air sats and see whether he will qualify for home O2. We may check a CT PA gram to be sure there is no evidence of recurrent pulmonary emboli. Current Visit: Yes (2) Diabetes mellitus Status: Chronic Current Visit: No (3) Hypertension Status: Chronic Current Visit: No Cardiology - PN: Subj Interval history: Patient continues stable without complaints related to chest discomfort. He feels much better on oxygen and we will check room air oxygen saturations to see if he will qualify for home O2. He may need pulmonary evaluation. Exam (Progress Note) - Constitutional Vitals: Period Temp Pulse Resp BP Sys/Enriquez Pulse Ox Last 24 Hr 96.9 F-98.5 F 40-51 20-20 143-178/58-78 93-100 Exam: General:no acute distress. alert and oriented, mood and affect are normal HEENT: no new lesions, sclerae are clear, mouth and pharynx benign Neck: supple, trachea midline, no JVD noted Lungs: no rales ronchi or wheeze is noted. pt comfortable without accesory muscle use to assist with breathing CV: RRR no murmur rub or gallop is noted. Abd: soft and nontender, BSNA, no masses. Ext: no cyanosis, clubbing or edema Neuro: grossly intact without focal neurologic deficit. Result/EKG - Labs CBC & BMP: 12/30/16 03:53 12/30/16 03:53 Labs: Laboratory Results - last 24 hr 12/29/16 12/29/16 12/29/16 07:06 11:10 15:10 WBC RBC Hgb Hct MCV MCH MCHC RDW Plt Count MPV Neut % (Auto) Lymph % (Auto) [place] % (Auto) Eos % (Auto) Baso % (Auto) Neut # (Auto) Lymph # (Auto) [place] # (Auto) Eos # (Auto) Baso # (Auto) Immature Gran % Nucleated RBC % Immature Gran # Nucleated RBCs # Sodium Potassium Chloride Carbon Dioxide Anion Gap BUN Creatinine GFR Calculation BUN/Creatinine Ratio Glucose POC Glucose 223 H 351 H 335 H Calculated Osmolality Calcium Magnesium 12/29/16 12/30/16 12/30/16 19:30 03:53 03:53 WBC 4.0 RBC 3.06 L Hgb 9.1 L Hct 28.3 L MCV 92.5 MCH 30 MCHC 32.2 RDW 15.9 Plt Count 153 MPV 9.7 Neut % (Auto) 55.1 Lymph % (Auto) 32.3 [place] % (Auto) 8.3 Eos % (Auto) 3.3 Baso % (Auto) 0.5 Neut # (Auto) 2.2 Lymph # (Auto) 1.3 L [place] # (Auto) 0.3 Eos # (Auto) 0.1 Baso # (Auto) 0.0 Immature Gran % 0.5 Nucleated RBC % 0.0 Immature Gran # 0.02 Nucleated RBCs # 0.00 Sodium 141 Potassium 4.6 Chloride 101 Carbon Dioxide 28 Anion Gap 16.6 H BUN 46 H D Creatinine 10.60 H GFR Calculation 8 BUN/Creatinine Ratio 4.00 L Glucose 137 H POC Glucose 313 H Calculated Osmolality 294.3 Calcium 8.1 L Magnesium 2.4 Quality Measures - VTE Contraindication to Pharmacological VTE Prophylaxis: High Risk of Bleeding
--- NOTE | 2016-12-30 09:41 | Nephrology Progress Note ---
Nephrology - PN: Subj Interval history: Patient continues to complain of shortness of breath. Review of systems GI he denies nausea vomiting Physical exam general the patient in no acute distress, he has no pitting edema Assessment/plan 1. End-stage renal disease-we will continue hemodialysis support 2. Dyspnea-patient's to have a sleep study done a more, he is anxious about trying to get some oxygen at home, will see if he can qualify for this. I agree that a pulmonary consult may be in order if his symptomatology does not improve 3. Diabetes mellitus 4. Anemia-patient's hematocrit around 28% Exam (PN)-Nephrology - Vital Signs Vital signs: Period Temp Pulse Resp BP Sys/Enriquez Pulse Ox Last 24 Hr 96.9 F-98.5 F 40-51 20-20 143-178/58-78 93-100 - Lab 12/30/16 03:53 12/30/16 03:53 Most recent lab results Calcium 8.1 MG/DL (8.5-10.1) L 12/30/16 03:53 Magnesium 2.4 MG/DL (1.8-2.4) 12/30/16 03:53
[2016-12-30] MEDS: INSULIN REGULAR 100 UNIT/ML SUBCUT SCH ×4 (10:50→22:20)
[2016-12-30] MEDS: CINACALCET 30 MG TABLET PO SCH ×2 (12:07→21:30)
[2016-12-30] MEDS: cloNIDine 0.1 MG TABLET PO PRN ×2 (12:28→17:49)
--- NOTE | 2016-12-30 15:09 | Hospitalist Progress Note ---
Assessment and Plan - Time spent with patient Time spent with patient: Less than 30 minutes (1) Diabetes mellitus Status: Chronic Assessment and plan: Continue insulin. Need to f/u with PCP closely or see endocrinology after discharge from hospital to continue to pursue tight glucose control for his DM. Current Visit: No (2) Dyspnea on exertion Status: Acute Assessment and plan: Schedule PFT (pre and post spirometry) in am. May need Pulm eval. Current Visit: Yes (3) ESRD on hemodialysis Status: Chronic Assessment and plan: Tolerated HD well today. Continue HD per Nephrology. Current Visit: No (4) Amputation of left lower extremity below knee Status: Acute Assessment and plan: Glucose level improved significantly. Continue current insulin treatment regimen. Current Visit: No (5) Hypertension Status: Chronic Assessment and plan: BP 132/57 this am. Continue HD as scheduled. Continue current treatment plan. Current Visit: No Hospitalist: Subjective Interval history: No overnight acute event. Complains SOB on exertion. Deny cough or wheezing. Deny fever, headache, chest pain or abd pain. Will schedule PFT(pre and post spirometry) in am. Exam - Constitutional Vitals: Period Temp Pulse Resp BP Sys/Enriquez Pulse Ox Last 24 Hr 97.3 F-98.5 F 40-51 20-20 147-201/58-84 93-100 Exam: GENERAL: NAD, AAOx3. HEENT: Pupils equally round and reactive to light, conjunctivae clear. Oropharynx pink, with moist mucous membranes. Normal lips, teeth and gums. NECK: Supple without mass. HEART: RRR, no murmur. CHEST: Normal shape, good air movement, no retractions. CV: RRR, no murmurs, 2+ peripheral pulses LUNGS: Clear to auscultation; no rales, rhonchi, or wheezes. ABDOMEN: Soft, nontender, and no hepatosplenomegaly. SKIN: No rash. LYMPH: No anterior or posterior cervical, or supraclavicular lymphadenopathy. NEURO: AAOx3 Results - Labs CBC & BMP: 12/30/16 03:53 12/30/16 03:53 Quality Measures - VTE Contraindication to Pharmacological VTE Prophylaxis: High Risk of Bleeding
[2016-12-30] MEDS: DOXAZOSIN 4 MG TABLET PO SCH (21:25)
[2016-12-30] MEDS: SIMVASTATIN 20 MG TABLET PO SCH (21:26)
[2016-12-31] MEDS: cloNIDine 0.1 MG TABLET PO PRN (01:33)
[2016-12-31 04:02] LABS: Basophils % 0.5 % (0.0-0.8); Eosinophils # 0.1 10*3/uL (0.0-0.87); Eosinophils % 3.2 % (0.00-10.9); Hematocrit 27.4 VOL% (42.0-52.0); Immature Granulocytes % 0.5 %; Immature Granulocytes Absolute 0.02 #; Lymphocytes # 1.2 10*3/uL (1.4-4.0); Lymphocytes % 32.2 % (21.2-54.2); Mean Corpuscular HGB Conc 32.8 GM/DL (32-36); Mean Corpuscular Hemoglobin 30 PG (27-34); Mean Corpuscular Volume 92.6 FL (87-102); Mean Platelet Volume 10.3 FL (9.6-12.0); Monocytes # 0.3 10*3/uL (0.11-0.8); Monocytes % 7.9 % (1.7-12.7); Neutrophils # 2.1 10*3/uL (1.4-7.4); Neutrophils % 55.7 % (38.7-73.9); Platelet Count 163 T/CUMM (130-400); Red Blood Count 2.96 MC/CUMM (3.8-5.5); Red Cell Distribution Width 15.9 % (9.3-17.3); White Blood Count 3.8 T/CUMM (4-12)
[2016-12-31 04:54] LABS: Calcium 7.6 MG/DL (8.5-10.1); Magnesium 2.6 MG/DL (1.8-2.4); Osmolality,Calculated 295.8 MOS/KG (273-304); Potassium 4.7 MMOL/L (3.5-5.1)
[2016-12-31 06:13] LABS: Hemoglobin A1 (Alkaline) 97.7 % (96.5-98.5); Hemoglobin A2 (Alkaline) 2.3 % (1.5-3.5)
[2016-12-31] MEDS: CALCIUM ACETATE 667 MG CAPSULE PO SCH ×3 (08:25→16:59)
[2016-12-31] MEDS: INSULIN LISPRO PROTAMINE/LISPRO 75/25 100 UNIT/ML SUBCUT SCH ×2 (08:26→16:58)
[2016-12-31] MEDS: INSULIN REGULAR 100 UNIT/ML SUBCUT SCH ×2 (08:26→14:17)
[2016-12-31] MEDS: DOCUSATE SODIUM 100 MG CAPSULE PO SCH ×2 (08:36→20:32)
[2016-12-31] MEDS: INSULIN GLARGINE 100 UNIT/ML SUBCUT SCH (08:36)
[2016-12-31] MEDS: SIMETHICONE CHEW 80 MG TABLET PO SCH ×4 (08:36→20:32)
--- NOTE | 2016-12-31 08:48 | Dialysis Note ---
Dialysis Note - Dialysis Note Mr. Erickson is seen during his hemodialysis. He is tolerating it well. He underwent cardiac catheterization with no significant ischemic disease noted but a 35% left ventricular ejection fraction was documented.
[2016-12-31] MEDS ORDERED: HEPARIN 10,000 UNIT/10 ML VIAL IV PRN (11:45)
[2016-12-31] MEDS: CINACALCET 30 MG TABLET PO SCH (14:11)
[2016-12-31] MEDS: LISINOPRIL 20 MG TABLET PO SCH ×2 (14:16→20:30)
[2016-12-31] MEDS: ALLOPURINOL 300 MG TABLET PO SCH (14:17)
--- NOTE | 2016-12-31 14:25 | Cardiology Progress Note ---
<Ondina Gonzales Shubham - Last Filed: 12/31/16 14:08> Assessment and Plan - Time spent with patient Time spent with patient: Less than 30 minutes (1) Dyspnea on exertion Status: Acute Current Visit: Yes (2) Anemia Status: Chronic Current Visit: Yes (3) Amputation of left lower extremity below knee Status: Chronic Current Visit: No (4) Hypertension Status: Chronic Current Visit: No (5) Diabetes mellitus Status: Chronic Current Visit: No (6) ESRD on hemodialysis Status: Chronic Current Visit: No (7) New onset atrial fibrillation Status: Acute Current Visit: Yes Cardiology - PN: Subj Interval history: [employer]: DR. CHAVEZ Mr. Erickson is a 66 year old male with uncontrolled diabetes, uncontrolled hypertension, end stage renal disease on dialysis, and family history of coronary disease. He was directly admitted from Dr. Chavez's office on 12/27/16 for further evaluation of dyspnea on exertion, anemia, and new onset atrial fibrillation. He underwent LHC on 12/28/[address] Villareal for symptoms suspicious for angina and was found to have angiographically no evidence of significant fixed coronary obstruction, nonischemic cardiomyopathy with EF 35%, normal EDP. He is significantly deconditioned and he is for sleep study to be certain that sleep apnea is not playing some role. ASSESSMENT/PLAN: 1. SANTANA - Likely multifactorial. Echocardiogram on 12/27/16 revealed EF>55%, Trace TR, mild LVH, trace posterior effusion. He has had flat troponins with normal CPK and CK-MB in the setting of chronic kidney disease. LHC on 12/28/16 revealed nonischemic cardiomyopathy with EF 35%. Per Dr. Villareal's note yesterday, we will have psych social worker help see if he qualifies for home O2. 2. ANEMIA - Suspect anemia of chronic disease secondary to end stage renal disease. H&H seems to be around the patient's baseline based on prior hospital labs. He denies any recent bleeding issues. Stool was negative for occult blood. Suspect this is anemia of chronic disease. 3. HYPERTENSION - Uncontrolled. Will resume home medications, monitor, and make adjustments accordingly. 4. TYPE 2 DIABETES - Uncontrolled. Hospital medicine was consulted to aid in management. He is on sliding scale insulin. 5. ESRD ON DIALYSIS - He is followed by nephrology and dialyzes on Saturday, Saturday, and Saturday. 6. LEFT BKA - Chronic, due to diabetic complications, peripheral vessel disease , and infection. 7. NEW ONSET ATRIAL FIBRILLATION - EKG at [facility] showed atrial fibrillation with controlled rate. Upon arrival to [facility], patient had converted to NSR. He has been in SR since then but has a first degree AVB and has had some PACs. We will continue to monitor. He has had some bradycardia, so we will avoid starting any adrianna blocking agents at this time. He has been receiving Clonidine PRN but has had some low rates during the night where his HR has dropped to the 30s-40s. We will discontinue this and start him on Hydralazine 25mg PO TID. Exam (Progress Note) - Constitutional Vitals: Period Temp Pulse Resp BP Sys/Enriquez Pulse Ox Last 24 Hr 97.5 F-99.3 F 41-65 16-20 153-189/70-84 91-97 Exam: General: Present: Appears Well, No Apparent Distress. Pleasant and cooperative. Appears comfortable. HEENT: Present: PERRL, Normocephaly, atraumatic. Mucus Membranes Moist. No jaundice noted. Conjunctiva moist and clear, sclerae anicteric Neck: Present: Supple Neck, Midline Trachea, No Masses, No Bruit, No tenderness Cardiac: Present: Regular Rate and Rhythm, No Murmur Lungs: Present: Clear to auscultation bilaterally, no wheeze, rhonchi. Neuro: Present: Awake, alert, and oriented x3. Moves all extremities well without hemiparesis or paralysis. Grossly Intact. Absent: Resting Tremor, Essential Tremor Abdomen: Present: Soft, Active Bowel Sounds, No Masses, Non-Tender, nondistended. No abdominal bruit or thrill noted. Skin: Present: Clear. Absent: Rash, No skin breakdown. Back: Normal inspection, no vertebral tenderness. Musculoskeletal: Present: No Fluid Collection, No Pain, Normal Range of Motion Extremities: Present: Normal Gait, No Clubbing, No Cyanosis, Upper Extr. Pulses 2+, RLE pulse 2+, L BKA, No edema. Capillary refill less than 3 seconds. Result/EKG - Labs CBC & BMP: 12/31/16 03:33 12/31/16 03:33 Lab Results: I have reviewed the past 24 hour labs Labs: Laboratory Results - last 24 hr 12/28/16 12/28/16 12/30/16 11:49 11:49 07:05 WBC RBC Hgb Hct MCV MCH MCHC RDW Plt Count MPV Neut % (Auto) Lymph % (Auto) [place] % (Auto) Eos % (Auto) Baso % (Auto) Neut # (Auto) Lymph # (Auto) [place] # (Auto) Eos # (Auto) Baso # (Auto) Immature Gran % Nucleated RBC % Immature Gran # Nucleated RBCs # Anemia Panel Interp See comment Hemoglobin A1 97.7 Hemoglobin A2 2.3 Hgb ELP Interp See comment Sodium Potassium Chloride Carbon Dioxide Anion Gap BUN Creatinine GFR Calculation BUN/Creatinine Ratio Glucose POC Glucose 181 H Calculated Osmolality Calcium Magnesium 12/30/16 12/30/16 12/30/16 11:51 17:01 19:10 WBC RBC Hgb Hct MCV MCH MCHC RDW Plt Count MPV Neut % (Auto) Lymph % (Auto) [place] % (Auto) Eos % (Auto) Baso % (Auto) Neut # (Auto) Lymph # (Auto) [place] # (Auto) Eos # (Auto) Baso # (Auto) Immature Gran % Nucleated RBC % Immature Gran # Nucleated RBCs # Anemia Panel Interp Hemoglobin A1 Hemoglobin A2 Hgb ELP Interp Sodium Potassium Chloride Carbon Dioxide Anion Gap BUN Creatinine GFR Calculation BUN/Creatinine Ratio Glucose POC Glucose 271 H 334 H 325 H Calculated Osmolality Calcium Magnesium 12/31/16 12/31/16 12/31/16 03:33 03:33 08:06 WBC 3.8 L RBC 2.96 L Hgb 9.0 L Hct 27.4 L MCV 92.6 MCH 30 MCHC 32.8 RDW 15.9 Plt Count 163 MPV 10.3 Neut % (Auto) 55.7 Lymph % (Auto) 32.2 [place] % (Auto) 7.9 Eos % (Auto) 3.2 Baso % (Auto) 0.5 Neut # (Auto) 2.1 Lymph # (Auto) 1.2 L [place] # (Auto) 0.3 Eos # (Auto) 0.1 Baso # (Auto) 0.0 Immature Gran % 0.5 Nucleated RBC % 0.0 Immature Gran # 0.02 Nucleated RBCs # 0.00 Anemia Panel Interp Hemoglobin A1 Hemoglobin A2 Hgb ELP Interp Sodium 137 Potassium 4.7 Chloride 98 Carbon Dioxide 27 Anion Gap 16.7 H BUN 59 H D Creatinine 12.40 H GFR Calculation 7 BUN/Creatinine Ratio 4.00 L Glucose 204 H POC Glucose 246 H Calculated Osmolality 295.8 Calcium 7.6 L Magnesium 2.6 H - EKG EKG results: interpreted by me, sinus rhythm (1st degree AVB) Quality Measures - VTE Contraindication to Pharmacological VTE Prophylaxis: High Risk of Bleeding Specialty Discharge - Follow Up or Referrals <Ochoa Parikh - Last Filed: 12/31/16 17:00> Exam (Progress Note) - Constitutional Vitals: Period Temp Pulse Resp BP Sys/Enriquez Pulse Ox Last 24 Hr 97.1 F-99.3 F 41-65 16-20 135-189/68-84 87-97 Result/EKG - Labs CBC & BMP: 12/31/16 03:33 12/31/16 03:33 Labs: Laboratory Results - last 24 hr 12/28/16 12/28/16 12/30/16 11:49 11:49 17:01 WBC RBC Hgb Hct MCV MCH MCHC RDW Plt Count MPV Neut % (Auto) Lymph % (Auto) [place] % (Auto) Eos % (Auto) Baso % (Auto) Neut # (Auto) Lymph # (Auto) [place] # (Auto) Eos # (Auto) Baso # (Auto) Immature Gran % Nucleated RBC % Immature Gran # Nucleated RBCs # Anemia Panel Interp See comment Hemoglobin A1 97.7 Hemoglobin A2 2.3 Hgb ELP Interp See comment Sodium Potassium Chloride Carbon Dioxide Anion Gap BUN Creatinine GFR Calculation BUN/Creatinine Ratio Glucose POC Glucose 334 H Calculated Osmolality Calcium Magnesium 12/30/16 12/31/16 12/31/16 19:10 03:33 03:33 WBC 3.8 L RBC 2.96 L Hgb 9.0 L Hct 27.4 L MCV 92.6 MCH 30 MCHC 32.8 RDW 15.9 Plt Count 163 MPV 10.3 Neut % (Auto) 55.7 Lymph % (Auto) 32.2 [place] % (Auto) 7.9 Eos % (Auto) 3.2 Baso % (Auto) 0.5 Neut # (Auto) 2.1 Lymph # (Auto) 1.2 L [place] # (Auto) 0.3 Eos # (Auto) 0.1 Baso # (Auto) 0.0 Immature Gran % 0.5 Nucleated RBC % 0.0 Immature Gran # 0.02 Nucleated RBCs # 0.00 Anemia Panel Interp Hemoglobin A1 Hemoglobin A2 Hgb ELP Interp Sodium 137 Potassium 4.7 Chloride 98 Carbon Dioxide 27 Anion Gap 16.7 H BUN 59 H D Creatinine 12.40 H GFR Calculation 7 BUN/Creatinine Ratio 4.00 L Glucose 204 H POC Glucose 325 H Calculated Osmolality 295.8 Calcium 7.6 L Magnesium 2.6 H 12/31/16 12/31/16 12/31/16 08:06 14:08 16:07 WBC RBC Hgb Hct MCV MCH MCHC RDW Plt Count MPV Neut % (Auto) Lymph % (Auto) [place] % (Auto) Eos % (Auto) Baso % (Auto) Neut # (Auto) Lymph # (Auto) [place] # (Auto) Eos # (Auto) Baso # (Auto) Immature Gran % Nucleated RBC % Immature Gran # Nucleated RBCs # Anemia Panel Interp Hemoglobin A1 Hemoglobin A2 Hgb ELP Interp Sodium Potassium Chloride Carbon Dioxide Anion Gap BUN Creatinine GFR Calculation BUN/Creatinine Ratio Glucose POC Glucose 246 H 262 H 319 H Calculated Osmolality Calcium Magnesium
--- NOTE | 2016-12-31 15:14 | Hospitalist Progress Note ---
Assessment and Plan (1) Diabetes mellitus Status: Chronic Assessment and plan: 1)DM- glucose 242-325. Increase the lantus to 30 U daily. continue SSI but change to humalog. . 2)HTN- BP are variable. 135/76-189/84. primary service has added hydralazine. Current Visit: No (2) Hypertension Status: Chronic Current Visit: No (3) ESRD on hemodialysis Status: Chronic Current Visit: No Hospitalist: Subjective Interval history: I saw MR Erickson on dialysis and he was feeling well. He denies shortness of breath at rest, but is very short of breath with exertion. He wants hoem O2 and says his sats were 83% off O2 yesterday afternoon, so he should qualify for it. Exam - Constitutional Vitals: Period Temp Pulse Resp BP Sys/Enriquez Pulse Ox Last 24 Hr 97.1 F-99.3 F 41-65 16-20 135-189/70-84 87-97 General appearance: no acute distress, over weight - Eye Eye exam: Present: EOMI. Absent: scleral icterus - Respiratory Respiratory exam: Present: clear to auscultation bilaterally - Cardiovascular Cardiovascular exam: Present: regular rate and rhythm - GI/Abdominal GI/Abdominal exam: Present: normal bowel sounds, soft - Extremities Exam Extremities exam: Absent: edema Results - Labs CBC & BMP: 12/31/16 03:33 12/31/16 03:33 Quality Measures - VTE Contraindication to Pharmacological VTE Prophylaxis: High Risk of Bleeding Specialty Discharge - Follow Up or Referrals
[2016-12-31] MEDS ORDERED: INSULIN GLARGINE 100 UNIT/ML SUBCUT SCH (15:17)
[2016-12-31] MEDS: INSULIN LISPRO 100 UNIT/ML SUBCUT SCH ×2 (16:58→20:30)
[2016-12-31] MEDS: hydrALAZINE 25 MG TABLET PO SCH ×2 (16:59→20:30)
[2016-12-31] MEDS: amLODIPine 5 MG TABLET PO SCH (17:18)
[2016-12-31] MEDS: ISOSORBIDE DINITRATE 20 MG TABLET PO SCH (20:30)
[2016-12-31] MEDS: LOPERAMIDE 2 MG CAPSULE PO PRN (20:30)
[2016-12-31] MEDS: DOXAZOSIN 4 MG TABLET PO SCH (20:30)
[2016-12-31] MEDS: SIMVASTATIN 20 MG TABLET PO SCH (20:30)
[2017-01-01] MEDS: INSULIN LISPRO PROTAMINE/LISPRO 75/25 100 UNIT/ML SUBCUT SCH ×2 (09:31→17:16)
[2017-01-01] MEDS: CALCIUM ACETATE 667 MG CAPSULE PO SCH ×3 (09:32→17:17)
[2017-01-01] MEDS: INSULIN LISPRO 100 UNIT/ML SUBCUT SCH ×4 (09:32→21:15)
[2017-01-01] MEDS: DOCUSATE SODIUM 100 MG CAPSULE PO SCH ×2 (09:33→21:19)
[2017-01-01] MEDS: ISOSORBIDE DINITRATE 20 MG TABLET PO SCH ×3 (09:33→21:19)
[2017-01-01] MEDS: LISINOPRIL 20 MG TABLET PO SCH ×2 (09:33→21:21)
[2017-01-01] MEDS: ALLOPURINOL 300 MG TABLET PO SCH (09:33)
[2017-01-01] MEDS: hydrALAZINE 25 MG TABLET PO SCH ×3 (09:34→21:18)
[2017-01-01] MEDS: SIMETHICONE CHEW 80 MG TABLET PO SCH ×4 (09:34→21:20)
[2017-01-01] MEDS: amLODIPine 5 MG TABLET PO SCH (09:34)
[2017-01-01] MEDS: CINACALCET 30 MG TABLET PO SCH (12:32)
[2017-01-01] MEDS ORDERED: INSULIN GLARGINE 100 UNIT/ML SUBCUT SCH (14:33)
--- NOTE | 2017-01-01 14:35 | Hospitalist Progress Note ---
Assessment and Plan (1) Diabetes mellitus Status: Chronic Assessment and plan: 1)DM- glucose 242-325. Increase the lantus to 40 U daily. Home on lantus which is new and his novolog with meals as he was doing. See his PCP in a week with record of his accuchecks. I have emphasized to him the need to be aggressive in controlling his glucose. 2)HTN- BP are variable. 135/76-189/84. primary service has added hydralazine. Current Visit: No (2) Hypertension Status: Chronic Current Visit: No (3) ESRD on hemodialysis Status: Chronic Current Visit: No Hospitalist: Subjective Interval history: Mr Erickson is doing well. GOing home today. He had no concerns when I saw him this morning. Exam - Constitutional Vitals: Period Temp Pulse Resp BP Sys/Enriquez Pulse Ox Last 24 Hr 97.4 F-98.3 F 43-51 16-20 130-198/68-104 91-100 General appearance: no acute distress, morbidly obese - Head Head exam: Present: normocephalic, atraumatic - Eye Eye exam: Present: EOMI. Absent: scleral icterus - Respiratory Respiratory exam: Present: clear to auscultation bilaterally - Cardiovascular Cardiovascular exam: Present: regular rate and rhythm - GI/Abdominal GI/Abdominal exam: Present: normal bowel sounds, soft - Extremities Exam Extremities exam: Absent: edema Results - Labs CBC & BMP: 12/31/16 03:33 12/31/16 03:33 Quality Measures - VTE Contraindication to Pharmacological VTE Prophylaxis: High Risk of Bleeding Specialty Discharge - Follow Up or Referrals
--- NOTE | 2017-01-01 15:01 | Cardiology Progress Note ---
Assessment and Plan (1) Dyspnea on exertion Status: Acute Assessment and plan: December 31" I have examined and interviewed Mr. Erickson. I agree with Ondina Gonzales NP's note below Pee at the followin. Reports a long history of bradycardia unchanged by his report (40s-60s), with several weeks of increased dyspnea on exertion 2. I suspect his ejection fraction is borderline normal with EF 55% by echo ( more accurate assessment and LV gram) with no significant CAD 3. Highly suspect LOUIS; he is under the impression that sleep study is scheduled for tonight, Dr. Vaz saw him last week (he mention outpatient sleep study?) 4. Significant hypertension 180s over the weekend; add amlodipine 5 mg and isosorbide to his hydralazine 5. ESRD 6. New onset atrial fibrillation, now with sinus bradycardia 7. Healthier diet with weight loss will be important for him. 8. Status post previous lower extremity amputation January 01: 1. Mr. Erickson is little change with stable sinus bradycardia (poorly has had for many years without symptoms previously), and episodes of shortness of breath 2. Highly suspect LOUIS; sleep study was apparently scheduled by Dr. Vaz 3. ESRD 4. Head new onset atrial fibrillation before converting to sinus bradycardia, and has had blood pressure swings consistent with LOUIS (normal this morning) 5. Discussed avoiding simple carbohydrates, and juices "I drink cranberry juice " 6. Abnormal PFTs today; consult pulmonary service (Dr. Guerra read his study) 7. Check chest x-ray PA and lateral room air sats 8. As he is clinically stable, will tentatively plan for discharge tomorrow, and follow-up with Dr. Miller 9. Stable modest anemia, probably of chronic disease Current Visit: Yes (2) New onset atrial fibrillation Status: Acute Current Visit: Yes (3) Anemia Status: Chronic Current Visit: Yes Cardiology - PN: Subj Interval history: Mr. Erickson is little changed he still has some episodes of shortness of breath and has daytime somnolence. He apparently was scheduled for outpatient sleep study. He had abnormal PFTs today. Exam (Progress Note) - Constitutional Vitals: Period Temp Pulse Resp BP Sys/Enriquez Pulse Ox Last 24 Hr 97.4 F-98.3 F 43-51 16-20 130-198/68-104 91-100 General appearance: no acute distress, over weight - Head Head exam: Present: normal inspection, normocephalic, atraumatic - ENT ENT exam: Present: normal exam - Respiratory Respiratory exam: Present: decreased breath sounds. Absent: stridor, wheezes - Cardiovascular Cardiovascular exam: Present: bradycardia. Absent: diastolic murmur, irregular rhythm, rubs, tachycardia - GI/Abdominal GI/Abdominal exam: Present: soft. Absent: tenderness - Extremities Exam Extremities exam: Present: edema Result/EKG - Labs CBC & BMP: 12/31/16 03:33 12/31/16 03:33 Labs: Laboratory Results - last 24 hr 12/31/16 12/31/16 01/01/17 16:07 19:17 08:13 POC Glucose 319 H 340 H 231 H 01/01/17 12:22 POC Glucose 284 H Quality Measures - VTE Contraindication to Pharmacological VTE Prophylaxis: High Risk of Bleeding Specialty Discharge - Follow Up or Referrals
--- NOTE | 2017-01-01 15:25 | Nephrology Progress Note ---
Nephrology - PN: Subj Interval history: Mr. Erickson is seen in follow-up of his end-stage renal disease. He dialyzed yesterday and is doing well today. He denies any shortness of breath today. Will continue to dialyze. If he goes home he will dialyze tomorrow as an outpatient. He is in no distress with a clear chest today Exam (PN)-Nephrology - Vital Signs Vital signs: Period Temp Pulse Resp BP Sys/Enriquez Pulse Ox Last 24 Hr 97.4 F-98.3 F 43-51 16-20 130-198/68-104 91-100 - Lab 12/31/16 03:33 12/31/16 03:33 Most recent lab results Calcium 7.6 MG/DL (8.5-10.1) L 12/31/16 03:33 Magnesium 2.6 MG/DL (1.8-2.4) H 12/31/16 03:33 Assessment and Plan (1) ESRD on hemodialysis Status: Chronic Assessment and plan: MWF hemodialysis with volume removal as appropriate Current Visit: No Specialty Discharge - Follow Up or Referrals
--- NOTE | 2017-01-01 16:41 | XRay Report ---
Exam: XR chest 2V Date: 01/01/2017 3:02 PM Indication: Shortness of breath abnormal pulmonary function test Comparison: 12/27/2016 Technical: PA lateral Findings: Right base effusion or pleural thickening present. Cardiomegaly is present. Some fibrotic scarring along the right lateral chest and base. Surgical clips present in the right apex x2. ASVD is present. No pneumothorax clearly demonstrated. Mediastinum appears otherwise intact. Impression: 1. Cardiomegaly with persistent right base pleural effusion pleural thickening and underlying fibrotic scarring alveolar densities and/or infiltrate in the right base. CT may be beneficial for further evaluation of this patient. PROCEDURE INTERPRETED AT [facility] DEPARTMENT OF RADIOLOGY Final Report Signed by: Dr. Hilario Zhang
--- NOTE | 2017-01-01 17:51 | Pulmonology Consult Note ---
Assessment and Plan (1) Postinflammatory pulmonary fibrosis Status: Acute Assessment and plan: The findings in the right lung on chest x-ray are likely due to postinflammatory pulmonary fibrosis related to pneumonia with empyema and drainage dating 2 or 3 years back at [place]. We need details of that hospitalization. Little can be done for this. However it should not be causing a severe of restriction as were seen on PFTs. His left lung is essentially normal. Current Visit: Yes (2) Amputation of left lower extremity below knee Status: Chronic Assessment and plan: This makes it a little bit more difficult for him to walk which may be adding to his dyspnea. Current Visit: No (3) Diabetes mellitus Status: Chronic Assessment and plan: Blood sugars poorly controlled. Current Visit: No (4) Dyspnea on exertion Status: Acute Assessment and plan: Likely multifactorial. Has normal ejection fraction with mild pulmonary hypertension. Had atrial fibrillation on admission that has been cardio verted. Postinflammatory pulmonary fibrosis involving his right lung likely would cause loss of about a third of his lung capacity. His PFTs show loss of almost 2/3. Physical deconditioning is a factor. Anemia is a factor. Have ordered a chest CT to be sure there is nothing else going on in that right lung. We also need records from [place] on his empyema hospitalization. Current Visit: Yes (5) New onset atrial fibrillation Status: Acute Assessment and plan: Now sinus rhythm but bradycardic. Current Visit: Yes History of Present Illness Chief complaint: Shortness of breath History of present illness: Mr. Erickson is a 66 year old male who was admitted having some atypical chest pain and shortness of breath. Cardiology has evaluated him. He was found to have new onset of atrial fibrillation. PFTs were obtained and showed severe combined restriction with mild obstruction. He has anemia of chronic disease. He is end-stage renal disease on dialysis. He relates that he has gotten worse as far shortness of breath over the last several months. If he has to walk a long distance to get to the dialysis center he requires oxygen air. His room air oxygen saturation earlier today was 86%. The patient has never been a smoker. He does not know of any history of chronic lung disease. He does have symptoms suggestive of obstructive sleep apnea and he is to have an outpatient sleep study done in a week or 2. Dr. Vaz has seen him. He has an abnormal chest CT showing a rounded area in the right midlung and pleural reaction on the right side. This dates back to 2014 on x-rays here. He was found to have an empyema and had a right chest tube at [place] approximately 2 years ago. It is likely that the radiographic findings here are related to that with scarring and pleural thickening. However his symptoms are getting worse and I think we should get a CT scan to evaluate this. Home Medications Medication Instructions Recorded Confirmed Type Lisinopril [Prinivil] 20 mg PO DAILY 02/15/15 12/27/16 History Simvastatin [Zocor] 20 mg PO BEDTIME 02/15/15 12/27/16 History Doxazosin [Cardura] 4 mg PO BEDTIME 01/28/16 12/27/16 History Allopurinol 300 mg PO DAILY 12/27/16 12/27/16 History Calcium Acetate [Calcium Acetate] 2,001 mg PO TID W/MEALS 12/27/16 12/27/16 History Calcium Acetate [Calcium Acetate] 667 mg PO WITH SNACKS 12/27/16 12/27/16 History Cinacalcet HCl [Sensipar] 90 mg PO AC LUNCH 12/27/16 12/27/16 History Insulin Lispro Protamin/Lispro 15 units SUBCUT BID 12/27/16 12/27/16 History [HumaLOG Mix 75-25 KwikPen] Loperamide Cap [Imodium Cap] 2 mg PO BIDPC 12/27/16 12/27/16 History Simethicone [Gas-X] 1 capsule PO BIDPC 12/27/16 12/27/16 History Allergies Allergy/AdvReac Type Severity Reaction Status Date / Time No Known Allergies Allergy Verified 01/28/16 11:03 12 point system: reviewed and no additional remarkable complaints except as stated - Constitutional Constitutional: Present: fatigue - Cardiovascular Cardiovascular: Present: chest pain at rest, dyspnea, dyspnea on exertion, PND - Respiratory Respiratory: Present: cough, dyspnea, dyspnea on exertion - Gastrointestinal Gastrointestinal: Present: abdominal pain, diarrhea - Neurological Neurological: Present: abnormal gait, tremor(s) - Hematologic/Lymphatic Hematologic/Lymphatic: Present: other (Anemia and transfusions) Exam (Pulmonay) H&P - Constitutional Vitals: Period Temp Pulse Resp BP Sys/Enriquez Pulse Ox Last 24 Hr 97.4 F-98.3 F 42-51 16-20 130-198/69-104 86-100 Exam: Patient is alert sitting up in the bedside chair. Vital signs normal. Pupils react to light. Throat is clear. Neck supple no bruits. Chest reveals a few rhonchi at the right base. Slight dullness at the right base. Otherwise lungs clear. Heart rate in 45-50 range with normal rhythm no murmurs. Abdomen soft nontender no masses. Extremities no clubbing or cyanosis. Trace of edema in the right leg. Left below the knee amputation noted. Has artificial limb. Medical,Surgical,& Family Hx - Medical History Cardio: History of: CHF (slight because of kidney, dm, htn status), Hypertension , PVD No history of: Congenital Heart Disease, CAD, LA, Pacemaker, Valvular Heart Disease, Cardiovascular Problems Psychological: No history of: Anxiety Disorders, ADHD, Behavior Problems Neurology: History of: Peripheral Neuropathy No history of: Brain Aneurysm, Cerebrovascular Accident, Cerebral Palsy, Dementia, Migraine, Multiple Sclerosis, Parkinson's Disease, Seizures, TIA, Vertigo, Neurologocal Cancer Endocrine: History of: Diabetes Mellitus (IDDM) No history of: Adrenal Disease, Diabetes Mellitus (NIDDM), Dyslipidemia, Thyroid Disorder, Endocrine Cancer, Endocrine Problems Respiratory: Comment Only: Obstructive Sleep Apnea (not dx with) Renal: History of: Dialysis (on [facility] on [address]), Renal Failure, Renal Problems No history of: Renal (Kidney) Cancer Genitourinary: History of: Bladder Problem, Problems No history of: Kidney Stones, Prostate Problems, Recurring Urinary Tract Infections, Genitourinary Cancer Gastrointestinal: History of: Gastrointestinal Bleed, Hemorrhoids, GI Problems ( [employer]) No history of: Bowel Obstruction, Clostridium Difficile, Crohn's Disease, Diverticulitis/ Diverticulosis, Esophageal Varices, GERD, Hepatitis, Liver Problems, Pancreatitis, Polyps, Ulcerative Colitis, Gastrointestinal Cancer Musculoskeletal: History of: Amputation (left bka. right hand middle finger) Hematology: History of: Anemia No history of: Bleeding Problems, Clotting Problems, Sickle Cell Disease, Hematologic Cancer, Blood Disorders - Surgical History Cardiac Surgeries: Sugical HX of: Cardiac Catheterization Patient Denies: Femoral-Popliteal Bypass Graft, Cardiac Surgery, Carotid Endarterectomy, Internal Defibrillator, Vascular Access Devices Thoracic Surgeries: Patient denies;: Kidney (Renal Surgery), Lithotripsy, Nephrectomy, Organ Transplant, Lobectomy Neurologic Surgeries: Patient denies: Brain Aneurysm, Neurologic Surgery HEENT Surgeries: Patient denies: Carotid Endarterectomy, Eye Surgery, Thyroid Surgery, Tonsilectomy & Adenoidectomy Abdominal Surgeries: Surgical HX of: Abdominal Surgery, Cholecystectomy, Colonoscopy, EGD Patient denies: Appendectomy, Gastric Bypass Surgery, Hernia Repair, Splenectomy Reproductive Surgeries: Patient denies;: Cystoscopy, Genitourinary Surgery, Prostate Surgery Orthopedic Surgeries: Surgical HX of;: Orthopedic Surgery - Family History Family History: Reports;: Family Diabetes, Family Psychiatric Problems, Family Stroke - Social History Smoking Status: Never smoker Frequency of Alcohol Use: None Type of Drug Use: None Results - Labs CBC & BMP: 12/31/16 03:33 12/31/16 03:33 Lab Results: I have reviewed the past 24 hour labs - Diagnostic Findings Procedure: Chest x-ray: image reviewed by me (Rounded opacity right mid lung that has been there for 2 years. Right pleural reaction.) Quality Measures - VTE Contraindication to Pharmacological VTE Prophylaxis: High Risk of Bleeding Specialty Discharge - Follow Up or Referrals
[2017-01-01] MEDS: ALBUTEROL/IPRATROPIUM 3 ML NEB RESP TX SCH (20:42)
[2017-01-01] MEDS: SIMVASTATIN 20 MG TABLET PO SCH (21:21)
[2017-01-01] MEDS: DOXAZOSIN 4 MG TABLET PO SCH (21:40)
[2017-01-02] MEDS: ALBUTEROL/IPRATROPIUM 3 ML NEB RESP TX SCH ×3 (00:28→15:41)
--- NOTE | 2017-01-02 07:22 | CT Report ---
Exam: CT chest w con Date: 01/02/2017 4:00 AM Comparison: Chest x-ray 01/01/2017 Indication: Restrictive pulmonary function tests with prior right empyema Technique:[Sequential axial scans of the chest were obtained following the injection of 80 cc Omnipaque 350. Coronal and sagittal 2-D reconstructions were obtained. Total DLP: 1071.90.] Findings: The heart is enlarged with coronary artery calcifications. Limited contrast in the vasculature with the ascending aorta measuring 45 mm in diameter. Calcification in the aortic and mitral valves. No conclusive pulmonary emboli are identified. Mediastinal and right hilar nodes which are borderline in size to minimally enlarged. The liver has a lobulated contour with prior cholecystectomy. The spleen is normal in size to minimally enlarged. Multiple cysts are noted visualized kidneys. Marrow inhomogeneity with osteophytes. Asymmetric right pleural thickening with small right pleural effusion and dense parenchymal findings in the right lower lobe. This finding abuts the pleura and contains small calcifications. There is extension to the level of the right hilum. Less pronounced diffuse parenchymal findings in the right upper lobe, right middle lobe, and left lower lobe. Several small groundglass opacities are noted in the left lower lobe. 5 mm noncalcified pulmonary nodule in the left lower lobe on scans 70. Impression: Symmetric pleural thickening with right pleural thickening and small right pleural effusion in patient with reported history of empyema. Residual parenchymal findings especially in the right lower lobe with dense atelectasis/consolidation. Multifocal calcifications within this finding which may be related to sequela of prior pneumonia. It is difficult to exclude more acute infiltration or additional underlying pathology. Additional small groundglass opacities and 5 mm noncalcified pulmonary nodule. Follow-up CT may be helpful for further evaluation. Cardiomegaly with coronary artery calcifications. Calcification in the aortic and mitral valves. Prior cholecystectomy with lobulated contour the liver. Multiple renal cysts with osseous findings consistent with patient's known chronic renal failure. This CT exam was performed using one or more the following dose reduction techniques: Automated exposure control, adjustment of the MA and/or KV according to patient size, or use of iterative reconstruction technique. PROCEDURE INTERPRETED AT [facility] DEPARTMENT OF RADIOLOGY Final Report Signed by: Dr. Anju Kent
[2017-01-02] MEDS: CALCIUM ACETATE 667 MG CAPSULE PO SCH ×2 (08:15→12:05)
--- NOTE | 2017-01-02 09:06 | Pulmonology Progress Note ---
Pulmonary - PN: Subj Interval history: Chest CT shows what appears to be postinflammatory fibrosis. The right lower lobe basically is one large scar. Multiple areas of calcifications indicating old inflammatory disease. Some pleural thickening. I think this is all the results of his pneumonia and empyema from a couple of years back. Nothing can be done to improve lung function based on that. He has some mild obstruction on PFTs. I think an inhaler may be helpful. [facility] Probably would do best to use Combivent or DuoNeb. Exam (Progress Note) - Constitutional Vitals: Period Temp Pulse Resp BP Sys/Enriquez Pulse Ox Last 24 Hr 97.0 F-98.4 F 42-101 16-20 148-198/65-84 85-98 Exam: Patient's alert oriented vital signs normal. Pupils react to light. Throat is clear. Neck supple no bruits. Chest reveals a few rhonchi at the right base. Left lung clear. Heart normal rate rhythm no murmurs. Abdomen soft nontender no masses. Extremities 1+ edema. Calves nontender. Results - Labs CBC & BMP: 12/31/16 03:33 12/31/16 03:33 Lab Results: I have reviewed the past 24 hour labs - Diagnostic Findings Procedure: CT - chest: image reviewed by me (Fairly dense scarring in right lower lobe with calcifications indicating old inflammatory response. This is postinflammatory pulmonary fibrosis. Also has pleural thickening. All the result of previous pneumonia with empyema.) Assessment and Plan (1) Postinflammatory pulmonary fibrosis Status: Acute Assessment and plan: The findings in the right lung on chest x-ray are likely due to postinflammatory pulmonary fibrosis related to pneumonia with empyema and drainage dating 2 or 3 years back at [place]. We need details of that hospitalization. Little can be done for this. However it should not be causing a severe of restriction as were seen on PFTs. His left lung is essentially normal. 01/02/2017 CT consistent with postinflammatory pulmonary fibrosis. No specific therapy. Current Visit: Yes (2) Amputation of left lower extremity below knee Status: Chronic Assessment and plan: This makes it a little bit more difficult for him to walk which may be adding to his dyspnea. Current Visit: No (3) Diabetes mellitus Status: Chronic Assessment and plan: Blood sugars poorly controlled. 01/02/2017 blood sugar still running a little high. Defer to primary service. Current Visit: No (4) Dyspnea on exertion Status: Acute Assessment and plan: Likely multifactorial. Has normal ejection fraction with mild pulmonary hypertension. Had atrial fibrillation on admission that has been cardio verted. Postinflammatory pulmonary fibrosis involving his right lung likely would cause loss of about a third of his lung capacity. His PFTs show loss of almost 2/3. Physical deconditioning is a factor. Anemia is a factor. Have ordered a chest CT to be sure there is nothing else going on in that right lung. We also need records from [place] on his empyema hospitalization. 01/02/2017 multifactorial. Patient inactive due to artificial limb. Postinflammatory pulmonary fibrosis with restrictive lung disease. Obesity. Anemia. May have some mild rhonchal spasm. Can treat that with albuterol, DuoNeb, Combivent, whichever he can get through [facility] [facility] Current Visit: Yes (5) New onset atrial fibrillation Status: Acute Assessment and plan: Now sinus rhythm but bradycardic. 01/02/2017 heart rate remains in the low 50s. Current Visit: Yes Specialty Discharge - Follow Up or Referrals
[2017-01-02] MEDS: INSULIN LISPRO PROTAMINE/LISPRO 75/25 100 UNIT/ML SUBCUT SCH (09:36)
[2017-01-02] MEDS: INSULIN LISPRO 100 UNIT/ML SUBCUT SCH ×2 (09:36→13:48)
[2017-01-02] MEDS: hydrALAZINE 25 MG TABLET PO SCH (09:37)
[2017-01-02] MEDS: DOCUSATE SODIUM 100 MG CAPSULE PO SCH (09:37)
[2017-01-02] MEDS: ISOSORBIDE DINITRATE 20 MG TABLET PO SCH ×2 (09:37→15:38)
[2017-01-02] MEDS: SIMETHICONE CHEW 80 MG TABLET PO SCH ×2 (09:38→15:43)
[2017-01-02] MEDS: amLODIPine 5 MG TABLET PO SCH (09:38)
[2017-01-02] MEDS: LISINOPRIL 20 MG TABLET PO SCH (09:38)
[2017-01-02] MEDS: ALLOPURINOL 300 MG TABLET PO SCH (09:39)
[2017-01-02 11:26] LABS: Basophils % 0.4 % (0.0-0.8); Eosinophils # 0.1 10*3/uL (0.0-0.87); Eosinophils % 2.3 % (0.00-10.9); Hematocrit 27.2 VOL% (42.0-52.0); Hemoglobin 9.1 GM/DL (14.0-18.0); Immature Granulocytes % 0.4 %; Immature Granulocytes Absolute 0.02 #; Lymphocytes % 21.1 % (21.2-54.2); Mean Corpuscular HGB Conc 33.5 GM/DL (32-36); Mean Corpuscular Hemoglobin 31 PG (27-34); Mean Corpuscular Volume 91.9 FL (87-102); Mean Platelet Volume 10.3 FL (9.6-12.0); Monocytes # 0.3 10*3/uL (0.11-0.8); Monocytes % 6.8 % (1.7-12.7); Neutrophils # 3.3 10*3/uL (1.4-7.4); Platelet Count 198 T/CUMM (130-400); Red Blood Count 2.96 MC/CUMM (3.8-5.5); White Blood Count 4.8 T/CUMM (4-12)
[2017-01-02 11:56] LABS: Calcium 8.2 MG/DL (8.5-10.1); Magnesium 2.3 MG/DL (1.8-2.4); Osmolality,Calculated 286.2 MOS/KG (273-304); Potassium 4.2 MMOL/L (3.5-5.1)
--- NOTE | 2017-01-02 12:55 | Cardiology Progress Note ---
Assessment and Plan (1) Dyspnea on exertion Status: Acute Assessment and plan: December 31" I have examined and interviewed Mr. Erickson. I agree with Ondina Gonzales NP's note below Pee at the followin. Reports a long history of bradycardia unchanged by his report (40s-60s), with several weeks of increased dyspnea on exertion 2. I suspect his ejection fraction is borderline normal with EF 55% by echo ( more accurate assessment and LV gram) with no significant CAD 3. Highly suspect LOUIS; he is under the impression that sleep study is scheduled for tonight, Dr. Vaz saw him last week (he mention outpatient sleep study?) 4. Significant hypertension 180s over the weekend; add amlodipine 5 mg and isosorbide to his hydralazine 5. ESRD 6. New onset atrial fibrillation, now with sinus bradycardia 7. Healthier diet with weight loss will be important for him. 8. Status post previous lower extremity amputation December 13: 1. Mr. Erickson is little change with stable sinus bradycardia (poorly has had for many years without symptoms previously), and episodes of shortness of breath 2. Highly suspect LOUIS; sleep study was apparently scheduled by Dr. Vaz 3. ESRD 4. Head new onset atrial fibrillation before converting to sinus bradycardia, and has had blood pressure swings consistent with LOUIS (normal this morning) 5. Discussed avoiding simple carbohydrates, and juices "I drink cranberry juice " 6. Abnormal PFTs today; consult pulmonary service (Dr. Guerra read his study) 7. Check chest x-ray PA and lateral room air sats 8. As he is clinically stable, will tentatively plan for discharge tomorrow, and follow-up with Dr. Miller 9. Stable modest anemia, probably of chronic disease December 14: 1. Mr. Erickson has not changed significantly per reports his breathing is improved in the last couple of days 2. Check room air oxygen saturations; will need to set up home oxygen if he is still in the 80s. 3. Pulmonary service noted small scar from old pneumonia on CT scan, and mild obstructive abnormality, bronchodilator was recommended. 4. Currently on hemodialysis 5. Maintaining sinus bradycardia, which she reports is chronic (he reportedly has paroxysmal atrial fibrillation RVR but I cannot find tracings that show this ) 6. Modest anemia; remote BKA 7. We will plan discharge this afternoon, follow with Dr. Cary. Current Visit: Yes (2) New onset atrial fibrillation Status: Acute Current Visit: Yes (3) Anemia Status: Chronic Current Visit: Yes Cardiology - PN: Subj Interval history: Mr. Erickson is a little better with regard to his shortness of breath but still has dyspnea on exertion. He is getting hemodialysis today. He is in any chest pain or palpitations. Exam (Progress Note) - Constitutional Vitals: Period Temp Pulse Resp BP Sys/Enriquez Pulse Ox Last 24 Hr 97.0 F-98.4 F 42-101 16-20 148-193/65-84 85-99 General appearance: no acute distress, over weight - Head Head exam: Present: normal inspection, normocephalic, atraumatic - Neck Neck exam: Present: normal inspection - Respiratory Respiratory exam: Present: clear to auscultation bilaterally, rhonchi. Absent: wheezes - Cardiovascular Cardiovascular exam: Present: regular rate and rhythm. Absent: diastolic murmur , rubs - GI/Abdominal GI/Abdominal exam: Present: soft. Absent: tenderness - Extremities Exam Extremities exam: Present: edema (Trace to mild) Result/EKG - Labs CBC & BMP: 01/02/17 09:25 01/02/17 09:25 Labs: Laboratory Results - last 24 hr 01/01/17 01/01/17 01/01/17 12:22 15:30 19:29 WBC RBC Hgb Hct MCV MCH MCHC RDW Plt Count MPV Neut % (Auto) Lymph % (Auto) [place] % (Auto) Eos % (Auto) Baso % (Auto) Neut # (Auto) Lymph # (Auto) [place] # (Auto) Eos # (Auto) Baso # (Auto) Immature Gran % Nucleated RBC % Immature Gran # Nucleated RBCs # Sodium Potassium Chloride Carbon Dioxide Anion Gap BUN Creatinine GFR Calculation BUN/Creatinine Ratio Glucose POC Glucose 284 H 320 H 269 H Calculated Osmolality Calcium Magnesium 01/02/17 01/02/17 01/02/17 07:40 09:25 09:25 WBC 4.8 RBC 2.96 L Hgb 9.1 L Hct 27.2 L MCV 91.9 MCH 31 MCHC 33.5 RDW 16.0 Plt Count 198 D MPV 10.3 Neut % (Auto) 69.0 Lymph % (Auto) 21.1 L [place] % (Auto) 6.8 Eos % (Auto) 2.3 Baso % (Auto) 0.4 Neut # (Auto) 3.3 Lymph # (Auto) 1.0 L [place] # (Auto) 0.3 Eos # (Auto) 0.1 Baso # (Auto) 0.0 Immature Gran % 0.4 Nucleated RBC % 0.0 Immature Gran # 0.02 Nucleated RBCs # 0.00 Sodium 134 L Potassium 4.2 Chloride 97 L Carbon Dioxide 27 Anion Gap 14.2 BUN 46 H Creatinine 8.80 H GFR Calculation 10 BUN/Creatinine Ratio 5.00 L Glucose 219 H POC Glucose 252 H Calculated Osmolality 286.2 Calcium 8.2 L Magnesium 2.3 01/02/17 12:17 WBC RBC Hgb Hct MCV MCH MCHC RDW Plt Count MPV Neut % (Auto) Lymph % (Auto) [place] % (Auto) Eos % (Auto) Baso % (Auto) Neut # (Auto) Lymph # (Auto) [place] # (Auto) Eos # (Auto) Baso # (Auto) Immature Gran % Nucleated RBC % Immature Gran # Nucleated RBCs # Sodium Potassium Chloride Carbon Dioxide Anion Gap BUN Creatinine GFR Calculation BUN/Creatinine Ratio Glucose POC Glucose 199 H Calculated Osmolality Calcium Magnesium Quality Measures - VTE Contraindication to Pharmacological VTE Prophylaxis: High Risk of Bleeding Specialty Discharge - Follow Up or Referrals
[2017-01-02] MEDS: CINACALCET 30 MG TABLET PO SCH (13:49)
--- NOTE | 2017-01-02 14:16 | Discharge Summary ---
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 CHAVEZ Mr. Erickson is a 66 year old male with uncontrolled diabetes, uncontrolled hypertension, end stage renal disease on dialysis, and family history of coronary disease. He is status post left BKA due to diabetic complications, peripheral vessel disease, and infection. He was directly admitted from Dr. Chavez's office on 12/27/16 for further evaluation of dyspnea on exertion, anemia, and new onset atrial fibrillation. He underwent LHC on by Dr. Villareal for symptoms suspicious for angina and was found to have angiographically no evidence of significant fixed coronary obstruction, nonischemic cardiomyopathy with EF 35%, normal EDP. H&H seems to be around the patient's baseline based on prior hospital labs. He denies any recent bleeding issues. Stool was negative for occult blood. Suspect this is anemia of chronic disease. EKG at [facility] clinic showed atrial fibrillation with controlled rate. Upon arrival to [facility], patient had converted to NSR. He has been in SR/SB since then but has a first degree AVB and has had some PACs. We will continue to monitor. He has had some bradycardia, so we will avoid starting any adrianna blocking agents at this time. He reports he has had chronic bradycardia. He has also had labile blood pressures and has undergone multiple medication changes. He continued to have dyspnea on exertion and pulmonology was consulted to see him. 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 His dyspnea is multifactorial and is complicated by his fibrosis, restrictive lung disease (mild obstructionon PFTs), and difficulty with ambulation due to his amputation. He is significantly deconditioned and he is for outpatient sleep study to be certain that sleep apnea is not playing some role. A healthier diet with weight loss will be important for him. He was found to have a SPO2 of 87% on room air and was arranged to have portable and home O2 upon discharge. His breathing has improved somewhat in the past few days but pulmonolgy recommends he be discharged on an inhaler. At this time, he has met maximum hospital benefit and will be discharged home in stable condition. He will need to follow up with Dr. Chavez in 2 weeks, follow up with Dr. Martínez in 1 month. His blood glucose levels have been difficult to control. We have adjusted his medications but he will need to follow up with someone within 1 week regarding this. We will refer him to Dr. Carbone for further management of his multiple chronic issues, but if there is not an appointment available within 1 week, he will need to see his current PCP with his accucheck log. - Time spent with patient Time with patient DS: Less than 30 minutes Diagnosis - Discharge Diagnosis (1) Dyspnea on exertion Status: Acute (2) Anemia Status: Chronic (3) Amputation of left lower extremity below knee Status: Chronic (4) Hypertension Status: Chronic (5) Diabetes mellitus Status: Chronic (6) ESRD on hemodialysis Status: Chronic (7) New onset atrial fibrillation Status: Resolved Specialty Discharge - Follow Up or Referrals Follow up with: Elizabeth Chavez DO [Physician] - 2 Weeks (Follow up with Dr. Chavez in 2 weeks. ) Vladimir Martínez MD [Physician] - 1 Month (Follow up with Dr. Martínez in 1 month.) Jayda Carbone M.D. [Physician] - 1 Week (Please refer patient (new patient) to Dr. Carbone for management of uncontrolled diabetes. If he cannot get an appointment with Dr. Carbone within 1 week, he will need to see his current PCP for follow up of his diabetes and then establish care with Dr. Carbone at the first available appointment. ) Discharge Plan - Discharge Data Condition at Discharge: Stable Discharge Diet: diabetic diet, heart healthy Activity: resume usual activities as tolerated, no lifting (over 5# for 1 week. ) Hygiene: may shower (Do not submerge cath site beneath water for 3-4 more days. ) Weight Bearing at Discharge: full weight bearing Driving: no restrictions Contact your physician if you experience:: fever over 101, Difficulty voiding, Redness or swelling, Nausea/Vomiting, Shortness of breath, Bleeding, pain uncontrolled by pain medications - Discharge Medications New Docusate Sodium Cap [Colace Cap] 100 mg PO BID #60 capsule Insulin Glargine [Lantus] 40 unit SUBCUT DAILY #1 bottle Lisinopril [Prinivil] 20 mg PO BID #60 tablet amLODIPine [Norvasc] 5 mg PO DAILY tablet hydrALAZINE TAB [Apresoline Tab] 50 mg PO TID #90 tablet Ipratropium/Albuterol Inhaler [Combivent Respimat Inhaler] 1 puff INH QID #1 inhaler Isosorbide Dinitrate [Isordil] 20 mg PO TID #90 tablet Continue Doxazosin [Cardura] 4 mg PO BEDTIME Calcium Acetate 667 mg PO WITH SNACKS Allopurinol 300 mg PO DAILY Calcium Acetate 2,001 mg PO TID W/MEALS Cinacalcet HCl [Sensipar] 90 mg PO AC LUNCH Loperamide Cap [Imodium Cap] 2 mg PO BIDPC Insulin Lispro Protamin/Lispro [HumaLOG Mix 75-25 KwikPen] 15 units SUBCUT BID Simethicone [Gas-X] 1 capsule PO BIDPC Simvastatin [Zocor] 20 mg PO BEDTIME Discontinued Lisinopril [Prinivil] 20 mg PO DAILY - Follow Up or Referral Follow Up: Vladimir Martínez MD [Physician] - 1 Month (Follow up with Dr. Martínez in 1 month.) Jayda Carbone M.D. [Physician] - 1 Week (Please refer patient (new patient) to Dr. Carbone for management of uncontrolled diabetes. If he cannot get an appointment with Dr. Carbone within 1 week, he will need to see his current PCP for follow up of his diabetes and then establish care with Dr. Carbone at the first available appointment. ) Elizabeth Chavez DO [Physician] - 2 Weeks (Follow up with Dr. Chavez in 2 weeks. ) - Forms/Instructions Instructions: Left Heart Catheterization (DC), Hypertrophic Cardiomyopathy (GEN ), Sleep Apnea Syndrome (GEN), Heart Healthy Diet (GEN) Exam - Constitutional Vitals: Period Temp Pulse Resp BP Sys/Enriquez Pulse Ox Last 24 Hr 97.0 F-98.4 F 42-101 16-20 148-193/65-84 85-99 Exam: General: Present: Appears Well, No Apparent Distress. Pleasant and cooperative. Appears comfortable. HEENT: Present: PERRL, Normocephaly, atraumatic. Mucus Membranes Moist. No jaundice noted. Conjunctiva moist and clear, sclerae anicteric Neck: Present: Supple Neck, Midline Trachea, No Masses, No Bruit, No tenderness Cardiac: Present: Regular Rate and Rhythm, No Murmur Lungs: Present: Clear to auscultation bilaterally, no wheeze, rhonchi. Neuro: Present: Awake, alert, and oriented x3. Moves all extremities well without hemiparesis or paralysis. Grossly Intact. Absent: Resting Tremor, Essential Tremor Abdomen: Present: Soft, Active Bowel Sounds, No Masses, Non-Tender, nondistended. No abdominal bruit or thrill noted. Skin: Present: Clear. Absent: Rash, No skin breakdown. Back: Normal inspection, no vertebral tenderness. Musculoskeletal: Present: No Fluid Collection, No Pain, Normal Range of Motion Extremities: Present: Normal Gait, No Clubbing, No Cyanosis, Upper Extr. Pulses 2+, RLE pulse 2+, L BKA, No edema. Capillary refill less than 3 seconds. Discharge Results Procedures and tests throughout hospitalization: Pending Orders 12/28/16 Occult Blood, Stool Routine 01/03/17 04:00 BMP w/ Mg [Basic Metabolic Panel w/Mg] IN AM Comp Blood Count Auto Diff IN AM Date of Procedure:: 12/28/16 Procedures performed: Left heart catheterization Coronary arteriography Left ventriculography Coronary arteriography: Left coronary artery: The left main coronary artery is well-developed and free of significant obstructing lesions. The circumflex coronary is a large nondominant vessel with possesses no significant lesions to its course. The branches of the circumflex likewise are free of significant obstructing lesions. The left anterior descending coronary artery is a large vessel that extends around the apex of the ventricle. The possesses no significant lesions throughout its course. The LAD and its remaining branches are free of significant obstructing lesions. Right coronary artery: The right coronary artery is large vessel that is dominant and is free of significant obstructing lesions. The PDA and posterolateral branches likewise are free of significant obstructing lesions. Left ventriculography: After injection of contrast left ventricle is known to be mildly enlarged with diffuse moderate to severe left ventricular hypokinesis overall ejection fraction is in the 35% range. Mitral and aortic structures appear normal by ventriculography. Right femoral sheath angiography: After injection of contrast in the right femoral arterial sheath it is noted be of normal caliber and enters above the bifurcation. The distal iliac, common femoral and bifurcation appear to be free of significant obstructing lesions based on this limited angiographic study. Conclusions: Angiographically no evidence of significant fixed coronary obstruction. Nonischemic cardiomyopathy ejection fraction 35% range Normal end-diastolic pressures at rest Mynx closure right femoral arteriotomy site Labs on day of discharge: Labs from last 24 hours 0601/02/17 01/02/17 12:17 09:25 09:25 WBC 4.8 RBC 2.96 L Hgb 9.1 L Hct 27.2 L MCV 91.9 MCH 31 MCHC 33.5 RDW 16.0 Plt Count 198 D MPV 10.3 Neut % (Auto) 69.0 Lymph % (Auto) 21.1 L [place] % (Auto) 6.8 Eos % (Auto) 2.3 Baso % (Auto) 0.4 Neut # (Auto) 3.3 Lymph # (Auto) 1.0 L [place] # (Auto) 0.3 Eos # (Auto) 0.1 Baso # (Auto) 0.0 Immature Gran % 0.4 Nucleated RBC % 0.0 Immature Gran # 0.02 Nucleated RBCs # 0.00 Sodium 134 L Potassium 4.2 Chloride 97 L Carbon Dioxide 27 Anion Gap 14.2 BUN 46 H Creatinine 8.80 H GFR Calculation 10 BUN/Creatinine Ratio 5.00 L Glucose 219 H POC Glucose 199 H Calculated Osmolality 286.2 Calcium 8.2 L Magnesium 2.3 01/02/17 01/01/17 01/01/17 07:40 19:29 15:30 WBC RBC Hgb Hct MCV MCH MCHC RDW Plt Count MPV Neut % (Auto) Lymph % (Auto) [place] % (Auto) Eos % (Auto) Baso % (Auto) Neut # (Auto) Lymph # (Auto) [place] # (Auto) Eos # (Auto) Baso # (Auto) Immature Gran % Nucleated RBC % Immature Gran # Nucleated RBCs # Sodium Potassium Chloride Carbon Dioxide Anion Gap BUN Creatinine GFR Calculation BUN/Creatinine Ratio Glucose POC Glucose 252 H 269 H 320 H Calculated Osmolality Calcium Magnesium DS: Provider Date of admission: 12/27/16 08:50 Primary care physician: . No PCP Attending physician on admission: Elizabeth Chavez DO Consults: 12/27/16 08:50 Consult to Physician [CONS] Routine Comment: HD pt admitted to cards Consulting Provider: Burak Tolbert Person Notified: left voicemail Date Notified: 12/27/16 Time Notified: 11:15 12/27/16 21:48 Consult to Physician [CONS] Routine Comment: Consulting Provider: Navid Grossman Consult to Specialist Group: Hospitalist When should Consulting Provider be notified: Now 12/28/16 11:35 Consult to Sleep Center [CONS] Routine Reason for Sleep Center: Sleep Center Physician Consult Comment: SANTANA, HTN, orthopnea, PND, obesity, poss OP sleep study? 12/28/16 14:23 Consult to Cardiac Rehabilitation [CONS] Routine Reason for Cardiac Rehabilitation: Risk Factor Modification 12/31/16 14:09 Consult to Case Mgmt/Social Srvs [CONS] Routine Reason for Case Mgmt/Social Srvs: Other Consult Comment: home 02 01/01/17 14:59 Consult to Physician [CONS] Routine Comment: abn pft Consulting Provider: [facility] [place] Pulmonology Discharging clinician: SUMMER Reynolds Expected date of discharge: 01/02/17
--- NOTE | 2017-01-02 14:24 | Dialysis Note ---
Dialysis Note - Dialysis Note Mr. Erickson is seen during his hemodialysis. He is tolerating dialysis well. He anticipates discharge today. We will continue to follow with dialysis as an outpatient
[2017-01-02 16:57] VITALS: BP 180/86
== END 2017-01-02 17:00 | disposition home or self-care (01) | DRG 286 ==
LOC: N.TELEN → OBSVTOIN 10:36
PROVIDERS: ADMIT Internal Medicine Cardiovascular Disease; ATTEND Internal Medicine Cardiovascular Disease
PROC: CLCCHCL (ICD-10-PCS; 2016-12-28 14:45)

== ENCOUNTER 2017-08-15 19:54 | Inpatient (IN) ==
[2017-08-15 21:03] LABS: Basophils # 0.1 10*3/uL (0.0-0.2); Basophils % 0.6 % (0.0-0.8); Eosinophils # 0.1 10*3/uL (0.0-0.87); Eosinophils % 1.6 % (0.00-10.9); Hematocrit 29.9 VOL% (42.0-52.0); Hemoglobin 9.7 GM/DL (14.0-18.0); Immature Granulocytes % 2.6 %; Immature Granulocytes Absolute 0.22 #; Lymphocytes % 23.5 % (21.2-54.2); Mean Corpuscular HGB Conc 32.4 GM/DL (32-36); Mean Corpuscular Hemoglobin 31 PG (27-34); Mean Corpuscular Volume 96.1 FL (87-102); Monocytes # 0.6 10*3/uL (0.11-0.8); Monocytes % 6.8 % (1.7-12.7); NRBC # 0.04 10*3/uL; Neutrophils # 5.6 10*3/uL (1.4-7.4); Neutrophils % 64.9 % (38.7-73.9); Platelet Count 261 T/CUMM (130-400); Red Blood Count 3.11 MC/CUMM (3.8-5.5); Red Cell Distribution Width 17.2 % (9.3-17.3); White Blood Count 8.6 T/CUMM (4-12)
[2017-08-15 21:11] LABS: Alanine Aminotransferase 23 U/L (16-61); Albumin 3.3 G/DL (3.4-5.0); Alkaline Phosphatase 117 U/L (45-117); Aspartate Amino Transferase 15 U/L (0-37); Bilirubin,Total < 0.39 MG/DL (0.2-1.0); Blood Urea Nitrogen 59 MG/DL (7-18); Calcium 9.1 MG/DL (8.5-10.1); Lactic Acid 3.8 MMOL/L (0.4-2.0); Osmolality,Calculated 307.7 MOS/KG (273-304); Potassium 4.1 MMOL/L (3.5-5.1); Sodium 131 MMOL/L (136-145); Total Protein 6.4 G/DL (6.4-8.3)
[2017-08-15 21:17] LABS: Glucose 615 MG/DL (74-106)
[2017-08-15] MEDS ORDERED: HYDROmorphone 2 MG/1 ML VIAL IV ONE (21:36)
[2017-08-15] MEDS ORDERED: INSULIN REGULAR 100 UNIT/ML IV STA (21:36)
[2017-08-15] MEDS ORDERED: ONDANSETRON 4 MG/2 ML VIAL IV STA (21:36)
[2017-08-15] MEDS ORDERED: PIPERACILLIN/TAZOBACTAM 2,250 MG in SODIUM CHLORIDE 0.9% 100 ML IV STA (21:38)
[2017-08-15 22:00] LABS: Troponin I Only 0.056 NG/ML (0.00-0.045)
[2017-08-15] MEDS ORDERED: ONDANSETRON 4 MG/2 ML VIAL ONE (22:17)
[2017-08-15] MEDS ORDERED: HYDROmorphone 2 MG/1 ML VIAL ONE (22:17)
[2017-08-15] MEDS ORDERED: INSULIN REGULAR 100 UNIT/ML ONE (22:19)
[2017-08-15 22:47] LABS: Allen Test Positive; Pt O2 Delivery Device Room Air
[2017-08-15 22:48] LABS: ABG Base Excess 1.5 MMOL/L (-2.5-2.5); ABG HCO3 26.7 MMOL/L (20-26); ABG Oxygen Saturation 91.6 % (95-100); ABG PCO2 45.4 MM HG (35-48); ABG PH 7.388 (7.35-7.45); ABG PO2 71.4 MM HG (80-95); ABG TCO2 28.1 MMOL/L (23-27)
[2017-08-15 23:47] LABS: PT Patient Result 10.5 SECS; Partial Thromboplastin Time 23.1 SECS (0-40)
[2017-08-16] MEDS ORDERED: hydrALAZINE 20 MG/1 ML VIAL IV PRN (00:47)
[2017-08-16] MEDS ORDERED: SODIUM CHLORIDE 0.9% 500 ML IV ONE (00:50)
[2017-08-16 01:26] LABS: Basophils # 0.1 10*3/uL (0.0-0.2); Basophils % 0.4 % (0.0-0.8); Eosinophils % 0.3 % (0.00-10.9); Hematocrit 27.2 VOL% (42.0-52.0); Immature Granulocytes Absolute 0.25 #; Lymphocytes # 0.8 10*3/uL (1.4-4.0); Lymphocytes % 5.9 % (21.2-54.2); Mean Corpuscular HGB Conc 33.1 GM/DL (32-36); Mean Corpuscular Hemoglobin 32 PG (27-34); Mean Corpuscular Volume 95.1 FL (87-102); Monocytes # 0.7 10*3/uL (0.11-0.8); Monocytes % 5.7 % (1.7-12.7); NRBC # 0.02 10*3/uL; Neutrophils # 10.9 10*3/uL (1.4-7.4); Neutrophils % 85.7 % (38.7-73.9); Platelet Count 242 T/CUMM (130-400); Red Blood Count 2.86 MC/CUMM (3.8-5.5); Red Cell Distribution Width 17.4 % (9.3-17.3); White Blood Count 12.8 T/CUMM (4-12)
[2017-08-16 01:44] LABS: Lactic Acid 2.9 MMOL/L (0.4-2.0)
[2017-08-16] MEDS ORDERED: PIPERACILLIN/TAZOBACTAM 2,250 MG in SODIUM CHLORIDE 0.9% 100 ML IV SCH (02:00)
[2017-08-16] MEDS ORDERED: ONDANSETRON 4 MG/2 ML VIAL ONE (03:01)
[2017-08-16] MEDS: ONDANSETRON 4 MG/2 ML VIAL IV PRN (03:06)
[2017-08-16] MEDS: HYDROmorphone 2 MG/1 ML VIAL IV PRN ×3 (03:09→21:10)
[2017-08-16] MEDS: INSULIN REGULAR DRIP 100 ML IV SCH ×2 (04:06→10:14)
[2017-08-16 08:13] LABS: Basophils % 0.2 % (0.0-0.8); Eosinophils % 0.3 % (0.00-10.9); Hematocrit 25.4 VOL% (42.0-52.0); Hemoglobin 8.3 GM/DL (14.0-18.0); Immature Granulocytes % 1.5 %; Immature Granulocytes Absolute 0.14 #; Lymphocytes # 0.7 10*3/uL (1.4-4.0); Mean Corpuscular HGB Conc 32.7 GM/DL (32-36); Mean Corpuscular Hemoglobin 31 PG (27-34); Mean Corpuscular Volume 95.5 FL (87-102); Mean Platelet Volume 9.6 FL (9.6-12.0); Monocytes # 0.6 10*3/uL (0.11-0.8); Monocytes % 6.3 % (1.7-12.7); Neutrophils # 7.6 10*3/uL (1.4-7.4); Neutrophils % 83.7 % (38.7-73.9); Platelet Count 205 T/CUMM (130-400); Red Blood Count 2.66 MC/CUMM (3.8-5.5); Red Cell Distribution Width 17.6 % (9.3-17.3); White Blood Count 9.1 T/CUMM (4-12)
[2017-08-16 08:28] LABS: Lactic Acid 2.4 MMOL/L (0.4-2.0)
[2017-08-16 08:33] LABS: Albumin 3.1 G/DL (3.4-5.0); Bilirubin,Total 0.9 MG/DL (0.2-1.0); Calcium 8.8 MG/DL (8.5-10.1); Osmolality,Calculated 304.2 MOS/KG (273-304); Potassium 5.2 MMOL/L (3.5-5.1)
[2017-08-16] MEDS ORDERED: amLODIPine 5 MG TABLET PO SCH (09:00)
[2017-08-16] MEDS ORDERED: amLODIPine 5 MG TABLET ONE (09:11)
[2017-08-16] MEDS ORDERED: HYDROmorphone 2 MG/1 ML VIAL ONE (10:58)
[2017-08-16] MEDS ORDERED: CALCIUM ACETATE 667 MG CAPSULE PO SCH (12:29)
[2017-08-16] MEDS ORDERED: DEXTROSE 50% 25 GM/50 ML VIAL IV PRN ×2 (13:25→14:41)
[2017-08-16] MEDS ORDERED: GLUCAGON 1 MG VIAL IM PRN ×2 (13:25→14:41)
[2017-08-16] MEDS ORDERED: PIPERACILLIN/TAZOBACTAM 3,375 MG VIAL IV ONE (14:23)
[2017-08-16] MEDS: PIPERACILLIN/TAZOBACTAM 3,375 MG in SODIUM CHLORIDE 0.9% 100 ML IV SCH (14:25)
[2017-08-16] MEDS: SIMETHICONE CHEW 125 MG TABLET PO SCH (18:13)
[2017-08-16] MEDS: LOPERAMIDE 2 MG CAPSULE PO SCH (18:13)
[2017-08-16] MEDS: CALCIUM ACETATE 667 MG CAPSULE PO SCH (18:13)
[2017-08-16] MEDS ORDERED: LISINOPRIL 20 MG TABLET PO SCH (21:00)
[2017-08-16] MEDS ORDERED: DOXAZOSIN 4 MG TABLET PO SCH (21:00)
[2017-08-16] MEDS: SIMVASTATIN 20 MG TABLET PO SCH (21:09)
[2017-08-16] MEDS: CINACALCET 30 MG TABLET PO SCH (21:09)
[2017-08-16] MEDS: INSULIN LISPRO PROTAMINE/LISPRO 75/25 100 UNIT/ML SUBCUT SCH (22:16)
[2017-08-17] MEDS: PIPERACILLIN/TAZOBACTAM 3,375 MG in SODIUM CHLORIDE 0.9% 100 ML IV SCH ×2 (04:15→15:35)
[2017-08-17] MEDS: CALCIUM ACETATE 667 MG CAPSULE PO SCH ×3 (09:58→17:38)
[2017-08-17] MEDS: INSULIN LISPRO PROTAMINE/LISPRO 75/25 100 UNIT/ML SUBCUT SCH ×2 (10:00→21:46)
[2017-08-17] MEDS: SIMETHICONE CHEW 125 MG TABLET PO SCH ×2 (10:00→18:29)
[2017-08-17] MEDS: LOPERAMIDE 2 MG CAPSULE PO SCH ×2 (10:00→18:29)
[2017-08-17] MEDS: LISINOPRIL 20 MG TABLET PO SCH ×2 (13:34→21:42)
[2017-08-17] MEDS: HYDROmorphone 2 MG/1 ML VIAL IV PRN (15:29)
[2017-08-17] MEDS: CINACALCET 30 MG TABLET PO SCH (21:43)
[2017-08-17] MEDS: SIMVASTATIN 20 MG TABLET PO SCH (21:43)
[2017-08-18] MEDS: PIPERACILLIN/TAZOBACTAM 3,375 MG in SODIUM CHLORIDE 0.9% 100 ML IV SCH ×2 (03:01→14:44)
[2017-08-18] MEDS: HYDROmorphone 2 MG/1 ML VIAL IV PRN ×2 (05:45→13:39)
[2017-08-18 06:19] LABS: Basophils % 0.3 % (0.0-0.8); Eosinophils # 0.2 10*3/uL (0.0-0.87); Eosinophils % 1.8 % (0.00-10.9); Hematocrit 23.7 VOL% (42.0-52.0); Hemoglobin 7.6 GM/DL (14.0-18.0); Immature Granulocytes % 1.1 %; Lymphocytes # 1.4 10*3/uL (1.4-4.0); Lymphocytes % 15.6 % (21.2-54.2); Mean Corpuscular HGB Conc 32.1 GM/DL (32-36); Mean Corpuscular Hemoglobin 31 PG (27-34); Mean Corpuscular Volume 96.3 FL (87-102); Mean Platelet Volume 9.9 FL (9.6-12.0); Monocytes # 0.8 10*3/uL (0.11-0.8); Monocytes % 9.4 % (1.7-12.7); Neutrophils # 6.3 10*3/uL (1.4-7.4); Neutrophils % 71.8 % (38.7-73.9); Platelet Count 218 T/CUMM (130-400); Red Blood Count 2.46 MC/CUMM (3.8-5.5); Red Cell Distribution Width 18.2 % (9.3-17.3); White Blood Count 8.8 T/CUMM (4-12)
[2017-08-18 06:41] LABS: Calcium 8.3 MG/DL (8.5-10.1); Osmolality,Calculated 290.1 MOS/KG (273-304)
[2017-08-18] MEDS: INSULIN LISPRO PROTAMINE/LISPRO 75/25 100 UNIT/ML SUBCUT SCH ×2 (09:21→21:45)
[2017-08-18] MEDS: CALCIUM ACETATE 667 MG CAPSULE PO SCH ×3 (09:21→17:00)
[2017-08-18] MEDS: LISINOPRIL 20 MG TABLET PO SCH ×2 (09:21→21:43)
[2017-08-18] MEDS: LOPERAMIDE 2 MG CAPSULE PO SCH ×2 (09:22→17:04)
[2017-08-18] MEDS: SIMETHICONE CHEW 125 MG TABLET PO SCH ×2 (09:22→17:04)
[2017-08-18] MEDS: INSULIN REGULAR 100 UNIT/ML SUBCUT SCH ×3 (12:14→21:45)
[2017-08-18] MEDS: SIMVASTATIN 20 MG TABLET PO SCH (21:43)
[2017-08-18] MEDS: CINACALCET 30 MG TABLET PO SCH (21:43)
[2017-08-19] MEDS: HYDROmorphone 2 MG/1 ML VIAL IV PRN ×2 (00:36→06:26)
[2017-08-19] MEDS: PIPERACILLIN/TAZOBACTAM 3,375 MG in SODIUM CHLORIDE 0.9% 100 ML IV SCH ×2 (02:54→14:29)
[2017-08-19 06:09] LABS: Basophils % 0.4 % (0.0-0.8); Eosinophils # 0.2 10*3/uL (0.0-0.87); Eosinophils % 1.9 % (0.00-10.9); Hematocrit 22.9 VOL% (42.0-52.0); Hemoglobin 7.6 GM/DL (14.0-18.0); Immature Granulocytes % 0.8 %; Immature Granulocytes Absolute 0.07 #; Lymphocytes # 1.1 10*3/uL (1.4-4.0); Lymphocytes % 12.6 % (21.2-54.2); Mean Corpuscular HGB Conc 33.2 GM/DL (32-36); Mean Corpuscular Hemoglobin 32 PG (27-34); Mean Corpuscular Volume 95.4 FL (87-102); Mean Platelet Volume 9.5 FL (9.6-12.0); Monocytes # 0.7 10*3/uL (0.11-0.8); Monocytes % 8.6 % (1.7-12.7); Neutrophils # 6.4 10*3/uL (1.4-7.4); Neutrophils % 75.7 % (38.7-73.9); Platelet Count 195 T/CUMM (130-400); Red Cell Distribution Width 17.6 % (9.3-17.3); White Blood Count 8.4 T/CUMM (4-12)
[2017-08-19 06:36] LABS: Albumin 2.9 G/DL (3.4-5.0); Calcium 8.5 MG/DL (8.5-10.1); Osmolality,Calculated 295.7 MOS/KG (273-304)
[2017-08-19] MEDS: INSULIN REGULAR 100 UNIT/ML SUBCUT SCH ×4 (08:11→21:38)
[2017-08-19] MEDS: oxyCODONE/ACETAMINOPHEN 5-325 MG TABLET PO PRN ×3 (08:42→21:37)
[2017-08-19] MEDS ORDERED: SODIUM CHLORIDE 0.9% 1,000 ML IV PRN (09:11)
[2017-08-19] MEDS ORDERED: ceFAZolin 1,000 MG in SYRINGE 1 EACH IV ONE (11:03)
[2017-08-19] MEDS: SIMETHICONE CHEW 125 MG TABLET PO SCH ×3 (11:48→16:59)
[2017-08-19] MEDS: CALCIUM ACETATE 667 MG CAPSULE PO SCH ×4 (11:48→16:52)
[2017-08-19] MEDS: LISINOPRIL 20 MG TABLET PO SCH ×2 (11:48→21:36)
[2017-08-19] MEDS: LOPERAMIDE 2 MG CAPSULE PO SCH ×2 (11:48→16:59)
[2017-08-19] MEDS: INSULIN LISPRO PROTAMINE/LISPRO 75/25 100 UNIT/ML SUBCUT SCH ×2 (11:50→21:38)
[2017-08-19] MEDS: ALUMINUM/MAGNES/SIMETH MAX STR 30 ML UDCUP PO PRN ×2 (18:25→22:50)
[2017-08-19] MEDS: CINACALCET 30 MG TABLET PO SCH (21:36)
[2017-08-19] MEDS: SIMVASTATIN 20 MG TABLET PO SCH (21:38)
[2017-08-20] MEDS: HYDROmorphone 2 MG/1 ML VIAL IV PRN ×2 (02:14→18:02)
[2017-08-20] MEDS: ONDANSETRON 4 MG/2 ML VIAL IV PRN (02:15)
[2017-08-20] MEDS: PIPERACILLIN/TAZOBACTAM 3,375 MG in SODIUM CHLORIDE 0.9% 100 ML IV SCH ×2 (02:18→17:15)
[2017-08-20 06:20] LABS: Basophils % 0.3 % (0.0-0.8); Eosinophils # 0.2 10*3/uL (0.0-0.87); Eosinophils % 1.9 % (0.00-10.9); Hematocrit 27.4 VOL% (42.0-52.0); Hemoglobin 8.7 GM/DL (14.0-18.0); Immature Granulocytes % 0.6 %; Immature Granulocytes Absolute 0.06 #; Lymphocytes % 19.7 % (21.2-54.2); Mean Corpuscular HGB Conc 31.8 GM/DL (32-36); Mean Corpuscular Hemoglobin 31 PG (27-34); Mean Corpuscular Volume 96.1 FL (87-102); Mean Platelet Volume 9.6 FL (9.6-12.0); Monocytes # 0.8 10*3/uL (0.11-0.8); Monocytes % 7.7 % (1.7-12.7); Neutrophils # 6.9 10*3/uL (1.4-7.4); Neutrophils % 69.8 % (38.7-73.9); Platelet Count 204 T/CUMM (130-400); Red Blood Count 2.85 MC/CUMM (3.8-5.5); Red Cell Distribution Width 18.5 % (9.3-17.3); White Blood Count 9.9 T/CUMM (4-12)
[2017-08-20 06:55] LABS: Albumin 2.8 G/DL (3.4-5.0); Calcium 8.5 MG/DL (8.5-10.1); Osmolality,Calculated 292.1 MOS/KG (273-304); Potassium 5.2 MMOL/L (3.5-5.1)
[2017-08-20] MEDS ORDERED: ceFAZolin 1,000 MG in SYRINGE 1 EACH IV ONE (08:00)
[2017-08-20] MEDS ORDERED: PANTOPRAZOLE 40 MG VIAL IV ONE (08:05)
[2017-08-20] MEDS ORDERED: LIDOCAINE 1% 5 ML VIAL ONE (08:08)
[2017-08-20] MEDS ORDERED: HEPARIN 5,000 UNIT/1 ML VIAL ONE (08:08)
[2017-08-20] MEDS: SODIUM CHLORIDE 0.9% 250 ML IV SCH ×2 (08:09→21:15)
[2017-08-20] MEDS: INSULIN REGULAR 100 UNIT/ML SUBCUT SCH ×4 (08:28→21:15)
[2017-08-20] MEDS ORDERED: PROPOFOL 200 MG/20 ML VIAL IV ONE (10:57)
[2017-08-20] MEDS ORDERED: MIDAZOLAM 2 MG/2 ML VIAL ONE (10:57)
[2017-08-20] MEDS ORDERED: fentaNYL 100 MCG/2 ML VIAL ONE (10:57)
[2017-08-20] MEDS ORDERED: KETAMINE 500 MG/10 ML VIAL ONE (10:58)
[2017-08-20] MEDS: INSULIN LISPRO PROTAMINE/LISPRO 75/25 100 UNIT/ML SUBCUT SCH ×2 (11:21→21:12)
[2017-08-20] MEDS: LOPERAMIDE 2 MG CAPSULE PO SCH ×2 (11:21→18:52)
[2017-08-20] MEDS: CALCIUM ACETATE 667 MG CAPSULE PO SCH ×3 (11:21→18:52)
[2017-08-20] MEDS: ALUMINUM/MAGNES/SIMETH MAX STR 30 ML UDCUP PO PRN (12:17)
[2017-08-20] MEDS: LISINOPRIL 20 MG TABLET PO SCH ×2 (12:17→21:09)
[2017-08-20] MEDS: SIMETHICONE CHEW 125 MG TABLET PO SCH ×2 (12:17→19:23)
[2017-08-20] MEDS: oxyCODONE/ACETAMINOPHEN 5-325 MG TABLET PO PRN (14:04)
[2017-08-20] MEDS ORDERED: HEPARIN 10,000 UNIT/10 ML VIAL IV PRN (16:39)
[2017-08-20] MEDS: SIMVASTATIN 20 MG TABLET PO SCH (21:09)
[2017-08-20] MEDS: CINACALCET 30 MG TABLET PO SCH (21:09)
[2017-08-21] MEDS: oxyCODONE/ACETAMINOPHEN 5-325 MG TABLET PO PRN ×4 (00:44→23:05)
[2017-08-21] MEDS: PIPERACILLIN/TAZOBACTAM 3,375 MG in SODIUM CHLORIDE 0.9% 100 ML IV SCH ×2 (02:31→17:29)
[2017-08-21] MEDS: INSULIN REGULAR 100 UNIT/ML SUBCUT SCH ×3 (08:26→16:28)
[2017-08-21] MEDS: CALCIUM ACETATE 667 MG CAPSULE PO SCH ×3 (09:55→17:17)
[2017-08-21] MEDS: INSULIN LISPRO PROTAMINE/LISPRO 75/25 100 UNIT/ML SUBCUT SCH (10:07)
[2017-08-21] MEDS: LOPERAMIDE 2 MG CAPSULE PO SCH ×2 (10:08→17:38)
[2017-08-21] MEDS: LISINOPRIL 20 MG TABLET PO SCH ×2 (10:08→22:49)
[2017-08-21] MEDS: SIMETHICONE CHEW 125 MG TABLET PO SCH ×2 (10:08→17:17)
[2017-08-21] MEDS: SODIUM CHLORIDE 0.9% 250 ML IV SCH ×2 (11:24→23:27)
[2017-08-21] MEDS: ONDANSETRON 4 MG/2 ML VIAL IV PRN (14:22)
[2017-08-21] MEDS ORDERED: INSULIN LISPRO PROTAMINE/LISPRO 75/25 100 UNIT/ML SUBCUT SCH (16:46)
[2017-08-21] MEDS: INSULIN LISPRO 100 UNIT/ML SUBCUT SCH (22:24)
[2017-08-21] MEDS: CINACALCET 30 MG TABLET PO SCH (22:49)
[2017-08-21] MEDS: SIMVASTATIN 20 MG TABLET PO SCH (22:50)
[2017-08-22] MEDS ORDERED: FAMOTIDINE 20 MG TABLET PO ONE (06:00)
[2017-08-22] MEDS: HYDROmorphone 2 MG/1 ML VIAL IV PRN ×7 (06:12→17:15)
[2017-08-22] MEDS: PIPERACILLIN/TAZOBACTAM 3,375 MG in SODIUM CHLORIDE 0.9% 100 ML IV SCH ×2 (06:15→19:30)
[2017-08-22] MEDS ORDERED: PHENYLEPHRINE DRIP 20 MG/250 ML PREMIX IV ONE (07:14)
[2017-08-22] MEDS ORDERED: ALBUMIN 5% 12.5 GM/250 ML VIAL IV ONE (07:26)
[2017-08-22] MEDS ORDERED: MANNITOL 12.5 GM/50 ML VIAL IV ONE (07:26)
[2017-08-22] MEDS: LISINOPRIL 20 MG TABLET PO SCH ×2 (07:30→22:18)
[2017-08-22] MEDS: LOPERAMIDE 2 MG CAPSULE PO SCH ×2 (09:50→18:10)
[2017-08-22] MEDS: CALCIUM ACETATE 667 MG CAPSULE PO SCH ×3 (09:50→17:34)
[2017-08-22] MEDS: INSULIN LISPRO 100 UNIT/ML SUBCUT SCH ×4 (09:51→22:18)
[2017-08-22] MEDS: SIMETHICONE CHEW 125 MG TABLET PO SCH ×2 (09:51→18:10)
[2017-08-22] MEDS ORDERED: ONDANSETRON 4 MG/2 ML VIAL ONE ×2 (11:56→11:57)
[2017-08-22] MEDS ORDERED: HYDROmorphone 2 MG/1 ML VIAL ONE (11:56)
[2017-08-22] MEDS ORDERED: SEVOFLURANE 1 UNIT/15 MINUTE INH ONE (11:56)
[2017-08-22] MEDS ORDERED: ETOMIDATE 40 MG/20 ML VIAL IV ONE (11:57)
[2017-08-22] MEDS ORDERED: DEXAMETHASONE 10 MG/1 ML VIAL ONE (11:57)
[2017-08-22] MEDS ORDERED: SUFentanil 50 MCG/ML AMP ONE (11:57)
[2017-08-22] MEDS ORDERED: MIDAZOLAM 2 MG/2 ML VIAL ONE (11:57)
[2017-08-22] MEDS ORDERED: NEOSTIGMINE 10 MG/10 ML VIAL ONE (11:58)
[2017-08-22] MEDS ORDERED: GLYCOPYRROLATE 0.4 MG/2 ML VIAL ONE (11:58)
[2017-08-22] MEDS ORDERED: ROCURONIUM 100 MG/10 ML VIAL IV ONE (11:58)
[2017-08-22] MEDS ORDERED: SODIUM CHLORIDE 0.9% 100 ML IV ONE (11:58)
[2017-08-22] MEDS ORDERED: ONDANSETRON 4 MG/2 ML VIAL IV PRN (12:02)
[2017-08-22] MEDS ORDERED: MEPERIDINE 25 MG/1 ML VIAL ONE (12:23)
[2017-08-22] MEDS ORDERED: MEPERIDINE 25 MG/1 ML VIAL IV PRN (12:28)
[2017-08-22] MEDS ORDERED: HYDROmorphone 2 MG/1 ML VIAL IV STA (14:05)
[2017-08-22] MEDS: SODIUM CHLORIDE 0.9% 250 ML IV SCH (15:07)
[2017-08-22] MEDS: oxyCODONE/ACETAMINOPHEN 5-325 MG TABLET PO PRN (15:45)
[2017-08-22] MEDS ORDERED: NALOXONE 0.4 MG/ML VIAL IV PRN (18:24)
[2017-08-22] MEDS: MORPHINE PCA 30 MG/30 ML SYRINGE IV SCH (19:19)
[2017-08-22] MEDS: CINACALCET 30 MG TABLET PO SCH (22:17)
[2017-08-22] MEDS: SIMVASTATIN 20 MG TABLET PO SCH (22:17)
[2017-08-23] MEDS: MORPHINE PCA 30 MG/30 ML SYRINGE IV SCH ×2 (04:53→20:47)
[2017-08-23] MEDS: PIPERACILLIN/TAZOBACTAM 3,375 MG in SODIUM CHLORIDE 0.9% 100 ML IV SCH ×2 (06:43→19:29)
[2017-08-23 07:12] LABS: Basophils % 0.2 % (0.0-0.8); Eosinophils % 0.1 % (0.00-10.9); Hematocrit 25.9 VOL% (42.0-52.0); Hemoglobin 8.4 GM/DL (14.0-18.0); Immature Granulocytes % 0.4 %; Immature Granulocytes Absolute 0.03 #; Lymphocytes # 0.6 10*3/uL (1.4-4.0); Mean Corpuscular HGB Conc 32.4 GM/DL (32-36); Mean Corpuscular Hemoglobin 30 PG (27-34); Mean Corpuscular Volume 92.8 FL (87-102); Mean Platelet Volume 9.7 FL (9.6-12.0); Monocytes # 0.9 10*3/uL (0.11-0.8); Monocytes % 10.2 % (1.7-12.7); Neutrophils % 82.1 % (38.7-73.9); Platelet Count 231 T/CUMM (130-400); Red Blood Count 2.79 MC/CUMM (3.8-5.5); White Blood Count 8.5 T/CUMM (4-12)
[2017-08-23 07:37] LABS: Albumin 2.6 G/DL (3.4-5.0); Bilirubin,Total 0.7 MG/DL (0.2-1.0); Calcium 8.2 MG/DL (8.5-10.1); Osmolality,Calculated 284.4 MOS/KG (273-304); Total Protein 5.9 G/DL (6.4-8.3)
[2017-08-23 07:44] LABS: Potassium 6.2 MMOL/L (3.5-5.1)
[2017-08-23] MEDS: INSULIN LISPRO 100 UNIT/ML SUBCUT SCH ×5 (08:04→20:53)
[2017-08-23] MEDS: oxyCODONE/ACETAMINOPHEN 5-325 MG TABLET PO PRN (08:23)
[2017-08-23] MEDS: LOPERAMIDE 2 MG CAPSULE PO SCH ×2 (08:25→19:18)
[2017-08-23] MEDS: SIMETHICONE CHEW 125 MG TABLET PO SCH ×2 (08:27→19:18)
[2017-08-23] MEDS: CALCIUM ACETATE 667 MG CAPSULE PO SCH ×3 (08:27→19:18)
[2017-08-23] MEDS: LISINOPRIL 20 MG TABLET PO SCH ×2 (10:04→20:52)
[2017-08-23] MEDS: HYDROmorphone 2 MG/1 ML VIAL IV PRN (12:34)
[2017-08-23] MEDS: CINACALCET 30 MG TABLET PO SCH (20:52)
[2017-08-23] MEDS: SIMVASTATIN 20 MG TABLET PO SCH (20:52)
[2017-08-24] MEDS: HYDROmorphone 2 MG/1 ML VIAL IV PRN ×2 (05:11→09:19)
[2017-08-24] MEDS: PIPERACILLIN/TAZOBACTAM 3,375 MG in SODIUM CHLORIDE 0.9% 100 ML IV SCH ×2 (06:19→18:32)
[2017-08-24] MEDS: SIMETHICONE CHEW 125 MG TABLET PO SCH ×2 (09:11→18:32)
[2017-08-24] MEDS: CALCIUM ACETATE 667 MG CAPSULE PO SCH ×3 (09:11→18:03)
[2017-08-24] MEDS: INSULIN LISPRO 100 UNIT/ML SUBCUT SCH ×4 (09:11→21:50)
[2017-08-24] MEDS: LISINOPRIL 20 MG TABLET PO SCH ×2 (09:12→21:50)
[2017-08-24] MEDS: LOPERAMIDE 2 MG CAPSULE PO SCH ×2 (09:12→18:32)
[2017-08-24] MEDS: MORPHINE PCA 30 MG/30 ML SYRINGE IV SCH (12:42)
[2017-08-24] MEDS: oxyCODONE/ACETAMINOPHEN 5-325 MG TABLET PO PRN (14:09)
[2017-08-24] MEDS ORDERED: ALBUTEROL/IPRATROPIUM 3 ML NEB RESP TX PRN (15:15)
[2017-08-24] MEDS ORDERED: BISACODYL 10 MG SUPP RECTAL ONE (15:16)
[2017-08-24] MEDS: CINACALCET 30 MG TABLET PO SCH (21:49)
[2017-08-24] MEDS: SIMVASTATIN 20 MG TABLET PO SCH (21:50)
[2017-08-25] MEDS: PIPERACILLIN/TAZOBACTAM 3,375 MG in SODIUM CHLORIDE 0.9% 100 ML IV SCH ×2 (06:02→19:14)
[2017-08-25] MEDS: INSULIN LISPRO 100 UNIT/ML SUBCUT SCH ×4 (08:30→21:33)
[2017-08-25] MEDS: CALCIUM ACETATE 667 MG CAPSULE PO SCH ×3 (08:31→19:12)
[2017-08-25] MEDS: LISINOPRIL 20 MG TABLET PO SCH ×2 (08:31→21:30)
[2017-08-25] MEDS: LOPERAMIDE 2 MG CAPSULE PO SCH ×2 (08:32→19:13)
[2017-08-25] MEDS: SIMETHICONE CHEW 125 MG TABLET PO SCH ×2 (08:32→19:13)
[2017-08-25 09:20] LABS: Hematocrit 21.4 VOL% (42.0-52.0)
[2017-08-25 09:26] LABS: Hemoglobin 6.9 GM/DL (14.0-18.0)
[2017-08-25 10:11] LABS: Calcium 6.3 MG/DL (8.5-10.1); Osmolality,Calculated 293.3 MOS/KG (273-304); Potassium 4.3 MMOL/L (3.5-5.1)
[2017-08-25] MEDS: MORPHINE PCA 30 MG/30 ML SYRINGE IV SCH (10:36)
[2017-08-25] MEDS ORDERED: SODIUM CHLORIDE 0.9% 1,000 ML IV PRN (11:56)
[2017-08-25] MEDS: DOCUSATE SODIUM 100 MG CAPSULE PO SCH ×2 (14:25→21:31)
[2017-08-25] MEDS: BISACODYL 5 MG TABLET PO SCH (14:25)
[2017-08-25] MEDS: MORPHINE 2 MG/1 ML SYRINGE IV PRN (17:29)
[2017-08-25] MEDS: CINACALCET 30 MG TABLET PO SCH (21:30)
[2017-08-25] MEDS: SIMVASTATIN 20 MG TABLET PO SCH (21:30)
[2017-08-26] MEDS: PIPERACILLIN/TAZOBACTAM 3,375 MG in SODIUM CHLORIDE 0.9% 100 ML IV SCH (06:37)
[2017-08-26] MEDS: INSULIN LISPRO 100 UNIT/ML SUBCUT SCH ×3 (08:33→16:29)
[2017-08-26 08:38] LABS: Albumin 2.2 G/DL (3.4-5.0); Bilirubin,Total 0.7 MG/DL (0.2-1.0); Calcium 8.9 MG/DL (8.5-10.1); Osmolality,Calculated 288.4 MOS/KG (273-304); Total Protein 6.4 G/DL (6.4-8.3)
[2017-08-26 08:42] LABS: Potassium 6.3 MMOL/L (3.5-5.1)
[2017-08-26 09:16] LABS: Basophils % 0.3 % (0.0-0.8); Eosinophils # 0.2 10*3/uL (0.0-0.87); Eosinophils % 1.9 % (0.00-10.9); Hematocrit 25.2 VOL% (42.0-52.0); Hemoglobin 7.4 GM/DL (14.0-18.0); Immature Granulocytes % 0.9 %; Immature Granulocytes Absolute 0.09 #; Lymphocytes % 10.1 % (21.2-54.2); Mean Corpuscular HGB Conc 29.4 GM/DL (32-36); Mean Corpuscular Hemoglobin 29 PG (27-34); Mean Platelet Volume 9.8 FL (9.6-12.0); Monocytes # 1.2 10*3/uL (0.11-0.8); Monocytes % 12.1 % (1.7-12.7); Neutrophils # 7.2 10*3/uL (1.4-7.4); Neutrophils % 74.7 % (38.7-73.9); Platelet Count 289 T/CUMM (130-400); Red Blood Count 2.52 MC/CUMM (3.8-5.5); White Blood Count 9.7 T/CUMM (4-12)
[2017-08-26] MEDS: DOCUSATE SODIUM 100 MG CAPSULE PO SCH ×2 (09:20→21:58)
[2017-08-26] MEDS: LISINOPRIL 20 MG TABLET PO SCH ×2 (09:20→22:00)
[2017-08-26] MEDS: BISACODYL 5 MG TABLET PO SCH (09:20)
[2017-08-26 09:25] LABS: PT Patient Result 10.4 SECS; Partial Thromboplastin Time 35.8 SECS (0-40)
[2017-08-26] MEDS: CALCIUM ACETATE 667 MG CAPSULE PO SCH ×3 (09:40→18:05)
[2017-08-26] MEDS: LOPERAMIDE 2 MG CAPSULE PO SCH ×2 (09:40→18:05)
[2017-08-26] MEDS: SIMETHICONE CHEW 125 MG TABLET PO SCH ×2 (09:41→18:05)
[2017-08-26] MEDS: SODIUM CHLORIDE 0.9% 1,000 ML IV SCH (14:00)
[2017-08-26] MEDS: CINACALCET 30 MG TABLET PO SCH (21:57)
[2017-08-26] MEDS: SIMVASTATIN 20 MG TABLET PO SCH (21:58)
[2017-08-27] MEDS: INSULIN LISPRO 100 UNIT/ML SUBCUT SCH ×4 (03:17→17:15)
[2017-08-27 05:17] LABS: Basophils % 0.5 % (0.0-0.8); Eosinophils # 0.2 10*3/uL (0.0-0.87); Eosinophils % 2.9 % (0.00-10.9); Hematocrit 27.3 VOL% (42.0-52.0); Hemoglobin 8.3 GM/DL (14.0-18.0); Immature Granulocytes % 1.1 %; Immature Granulocytes Absolute 0.07 #; Lymphocytes # 0.5 10*3/uL (1.4-4.0); Lymphocytes % 7.1 % (21.2-54.2); Mean Corpuscular HGB Conc 30.4 GM/DL (32-36); Mean Corpuscular Hemoglobin 30 PG (27-34); Mean Corpuscular Volume 97.2 FL (87-102); Mean Platelet Volume 9.8 FL (9.6-12.0); Monocytes # 0.9 10*3/uL (0.11-0.8); Monocytes % 14.1 % (1.7-12.7); Neutrophils # 4.9 10*3/uL (1.4-7.4); Neutrophils % 74.3 % (38.7-73.9); Platelet Count 271 T/CUMM (130-400); Red Blood Count 2.81 MC/CUMM (3.8-5.5); Red Cell Distribution Width 17.4 % (9.3-17.3); White Blood Count 6.6 T/CUMM (4-12)
[2017-08-27 05:42] LABS: Calcium 8.7 MG/DL (8.5-10.1); Osmolality,Calculated 285.1 MOS/KG (273-304); Potassium 5.3 MMOL/L (3.5-5.1)
[2017-08-27] MEDS: SODIUM CHLORIDE 0.9% 1,000 ML IV SCH (08:31)
[2017-08-27] MEDS: LOPERAMIDE 2 MG CAPSULE PO SCH ×2 (09:35→18:38)
[2017-08-27] MEDS: LISINOPRIL 20 MG TABLET PO SCH ×2 (09:35→22:50)
[2017-08-27] MEDS: SIMETHICONE CHEW 125 MG TABLET PO SCH ×2 (09:35→18:38)
[2017-08-27] MEDS: CALCIUM ACETATE 667 MG CAPSULE PO SCH ×3 (09:35→18:30)
[2017-08-27] MEDS: LEVOFLOXACIN 250 MG TABLET PO SCH (14:02)
[2017-08-27] MEDS: BISACODYL 5 MG TABLET PO SCH (14:03)
[2017-08-27] MEDS: DOCUSATE SODIUM 100 MG CAPSULE PO SCH ×2 (14:04→22:50)
[2017-08-27] MEDS: MORPHINE 2 MG/1 ML SYRINGE IV PRN (22:46)
[2017-08-27] MEDS: CINACALCET 30 MG TABLET PO SCH (22:49)
[2017-08-27] MEDS: SIMVASTATIN 20 MG TABLET PO SCH (22:50)
[2017-08-28] MEDS: INSULIN LISPRO 100 UNIT/ML SUBCUT SCH ×5 (03:06→22:21)
[2017-08-28] MEDS: SODIUM CHLORIDE 0.9% 1,000 ML IV SCH (11:46)
[2017-08-28] MEDS: CALCIUM ACETATE 667 MG CAPSULE PO SCH ×3 (11:46→18:20)
[2017-08-28] MEDS: SIMETHICONE CHEW 125 MG TABLET PO SCH ×2 (11:47→18:20)
[2017-08-28] MEDS: LISINOPRIL 20 MG TABLET PO SCH ×2 (11:47→21:48)
[2017-08-28] MEDS: LOPERAMIDE 2 MG CAPSULE PO SCH ×2 (11:47→18:20)
[2017-08-28] MEDS: BISACODYL 5 MG TABLET PO SCH (11:47)
[2017-08-28] MEDS: DOCUSATE SODIUM 100 MG CAPSULE PO SCH ×2 (11:47→21:47)
[2017-08-28] MEDS: LEVOFLOXACIN 250 MG TABLET PO SCH (11:47)
[2017-08-28] MEDS: MORPHINE 2 MG/1 ML SYRINGE IV PRN ×2 (14:43→23:55)
[2017-08-28] MEDS: SIMVASTATIN 20 MG TABLET PO SCH (21:48)
[2017-08-28] MEDS: CINACALCET 30 MG TABLET PO SCH (21:48)
[2017-08-29] MEDS: INSULIN LISPRO 100 UNIT/ML SUBCUT SCH ×4 (08:43→20:55)
[2017-08-29] MEDS: LEVOFLOXACIN 250 MG TABLET PO SCH (09:34)
[2017-08-29] MEDS: LOPERAMIDE 2 MG CAPSULE PO SCH (09:35)
[2017-08-29] MEDS: LISINOPRIL 20 MG TABLET PO SCH ×2 (09:35→20:55)
[2017-08-29] MEDS: SIMETHICONE CHEW 125 MG TABLET PO SCH ×2 (09:35→17:04)
[2017-08-29] MEDS: DOCUSATE SODIUM 100 MG CAPSULE PO SCH ×2 (09:36→20:55)
[2017-08-29] MEDS: CALCIUM ACETATE 667 MG CAPSULE PO SCH ×3 (09:37→17:04)
[2017-08-29] MEDS: CINACALCET 30 MG TABLET PO SCH (20:55)
[2017-08-29] MEDS: SIMVASTATIN 20 MG TABLET PO SCH (20:55)
[2017-08-30] MEDS: SODIUM CHLORIDE 0.9% 1,000 ML IV SCH (08:24)
[2017-08-30] MEDS: CALCIUM ACETATE 667 MG CAPSULE PO SCH ×3 (08:25→18:33)
[2017-08-30] MEDS: LISINOPRIL 20 MG TABLET PO SCH ×2 (08:25→22:57)
[2017-08-30] MEDS: SIMETHICONE CHEW 125 MG TABLET PO SCH ×2 (08:25→18:33)
[2017-08-30] MEDS: INSULIN LISPRO 100 UNIT/ML SUBCUT SCH ×4 (08:25→22:59)
[2017-08-30] MEDS: DOCUSATE SODIUM 100 MG CAPSULE PO SCH ×2 (09:19→22:56)
[2017-08-30] MEDS: LEVOFLOXACIN 250 MG TABLET PO SCH (17:24)
[2017-08-30] MEDS: cefTRIAXone 2,000 MG in SYRINGE 1 EACH IV SCH (17:24)
[2017-08-30] MEDS: SIMVASTATIN 20 MG TABLET PO SCH (22:57)
[2017-08-30] MEDS: CINACALCET 30 MG TABLET PO SCH (22:57)
[2017-08-30] MEDS: LINEZOLID 600 MG TABLET PO SCH (22:58)
[2017-08-31] MEDS: DOCUSATE SODIUM 100 MG CAPSULE PO SCH (08:45)
[2017-08-31] MEDS: INSULIN LISPRO 100 UNIT/ML SUBCUT SCH ×3 (08:45→16:15)
[2017-08-31] MEDS: SODIUM CHLORIDE 0.9% 1,000 ML IV SCH (08:45)
[2017-08-31] MEDS: LISINOPRIL 20 MG TABLET PO SCH (08:45)
[2017-08-31] MEDS: CALCIUM ACETATE 667 MG CAPSULE PO SCH ×3 (08:45→17:30)
[2017-08-31] MEDS: SIMETHICONE CHEW 125 MG TABLET PO SCH ×2 (08:48→18:06)
[2017-08-31] MEDS: LINEZOLID 600 MG TABLET PO SCH (08:59)
[2017-08-31 09:50] LABS: Basophils % 0.2 % (0.0-0.8); Eosinophils # 0.2 10*3/uL (0.0-0.87); Eosinophils % 1.2 % (0.00-10.9); Hematocrit 30.3 VOL% (42.0-52.0); Hemoglobin 9.7 GM/DL (14.0-18.0); Immature Granulocytes % 3.4 %; Immature Granulocytes Absolute 0.44 #; Lymphocytes # 1.2 10*3/uL (1.4-4.0); Mean Corpuscular Hemoglobin 30 PG (27-34); Mean Platelet Volume 10.1 FL (9.6-12.0); Monocytes % 7.6 % (1.7-12.7); Neutrophils # 10.1 10*3/uL (1.4-7.4); Neutrophils % 78.6 % (38.7-73.9); Platelet Count 346 T/CUMM (130-400); Red Blood Count 3.19 MC/CUMM (3.8-5.5); Red Cell Distribution Width 17.4 % (9.3-17.3); White Blood Count 12.9 T/CUMM (4-12)
[2017-08-31 10:32] LABS: Albumin 2.3 G/DL (3.4-5.0); Bilirubin,Total 1.1 MG/DL (0.2-1.0); Calcium 8.4 MG/DL (8.5-10.1); Magnesium 2.9 MG/DL (1.8-2.4); Osmolality,Calculated 294.8 MOS/KG (273-304); Potassium 5.1 MMOL/L (3.5-5.1); Total Protein 6.8 G/DL (6.4-8.3)
[2017-08-31] MEDS: cefTRIAXone 2,000 MG in SYRINGE 1 EACH IV SCH (16:17)
[2017-08-31] MEDS: oxyCODONE/ACETAMINOPHEN 5-325 MG TABLET PO PRN (18:21)
[2017-08-31] MEDS: ACETYLCYSTEINE 20% 800 MG/4 ML VIAL RESP TX SCH (19:26)
[2017-09-01] MEDS: DOCUSATE SODIUM 100 MG CAPSULE PO SCH ×3 (00:54→22:23)
[2017-09-01] MEDS: INSULIN LISPRO 100 UNIT/ML SUBCUT SCH ×5 (00:55→22:24)
[2017-09-01] MEDS: LISINOPRIL 20 MG TABLET PO SCH ×3 (00:56→22:24)
[2017-09-01] MEDS: SIMVASTATIN 20 MG TABLET PO SCH ×2 (00:57→22:24)
[2017-09-01] MEDS: CINACALCET 30 MG TABLET PO SCH ×2 (00:57→22:24)
[2017-09-01] MEDS: LINEZOLID 600 MG TABLET PO SCH ×3 (00:58→22:25)
[2017-09-01] MEDS: oxyCODONE/ACETAMINOPHEN 5-325 MG TABLET PO PRN ×3 (06:32→21:53)
[2017-09-01] MEDS: ACETYLCYSTEINE 20% 800 MG/4 ML VIAL RESP TX SCH ×4 (08:05→20:01)
[2017-09-01] MEDS: SODIUM CHLORIDE 0.9% 1,000 ML IV SCH (08:12)
[2017-09-01] MEDS: SIMETHICONE CHEW 125 MG TABLET PO SCH ×2 (10:10→17:40)
[2017-09-01] MEDS: CALCIUM ACETATE 667 MG CAPSULE PO SCH ×3 (10:18→17:03)
[2017-09-01] MEDS: cefTRIAXone 2,000 MG in SYRINGE 1 EACH IV SCH (17:14)
[2017-09-02] MEDS: ACETYLCYSTEINE 20% 800 MG/4 ML VIAL RESP TX SCH ×4 (02:05→19:49)
[2017-09-02 09:17] LABS: Basophils % 0.2 % (0.0-0.8); Eosinophils # 0.1 10*3/uL (0.0-0.87); Eosinophils % 2.1 % (0.00-10.9); Hematocrit 25.7 VOL% (42.0-52.0); Hemoglobin 8.1 GM/DL (14.0-18.0); Immature Granulocytes % 9.2 %; Immature Granulocytes Absolute 0.48 #; Lymphocytes # 0.8 10*3/uL (1.4-4.0); Lymphocytes % 15.5 % (21.2-54.2); Mean Corpuscular HGB Conc 31.5 GM/DL (32-36); Mean Corpuscular Hemoglobin 30 PG (27-34); Mean Corpuscular Volume 95.5 FL (87-102); Mean Platelet Volume 9.8 FL (9.6-12.0); Monocytes # 0.2 10*3/uL (0.11-0.8); Monocytes % 3.8 % (1.7-12.7); Neutrophils # 3.6 10*3/uL (1.4-7.4); Neutrophils % 69.2 % (38.7-73.9); Platelet Count 316 T/CUMM (130-400); Red Blood Count 2.69 MC/CUMM (3.8-5.5); Red Cell Distribution Width 17.7 % (9.3-17.3); White Blood Count 5.2 T/CUMM (4-12)
[2017-09-02] MEDS: INSULIN LISPRO 100 UNIT/ML SUBCUT SCH ×4 (11:02→21:10)
[2017-09-02] MEDS: oxyCODONE/ACETAMINOPHEN 5-325 MG TABLET PO PRN ×2 (11:27→17:41)
[2017-09-02] MEDS: CALCIUM ACETATE 667 MG CAPSULE PO SCH ×3 (13:39→18:01)
[2017-09-02] MEDS: SIMETHICONE CHEW 125 MG TABLET PO SCH ×2 (14:05→17:33)
[2017-09-02] MEDS: LISINOPRIL 20 MG TABLET PO SCH ×2 (14:05→21:10)
[2017-09-02] MEDS: DOCUSATE SODIUM 100 MG CAPSULE PO SCH ×2 (14:05→21:09)
[2017-09-02] MEDS: LINEZOLID 600 MG TABLET PO SCH ×2 (14:05→21:10)
[2017-09-02] MEDS: cefTRIAXone 2,000 MG in SYRINGE 1 EACH IV SCH (17:37)
[2017-09-02] MEDS: CINACALCET 30 MG TABLET PO SCH (21:10)
[2017-09-02] MEDS: SIMVASTATIN 20 MG TABLET PO SCH (21:10)
[2017-09-03] MEDS: ACETYLCYSTEINE 20% 800 MG/4 ML VIAL RESP TX SCH ×5 (00:40→23:43)
[2017-09-03 05:11] LABS: Basophils % 0.4 % (0.0-0.8); Eosinophils # 0.1 10*3/uL (0.0-0.87); Eosinophils % 1.8 % (0.00-10.9); Hematocrit 26.9 VOL% (42.0-52.0); Hemoglobin 8.4 GM/DL (14.0-18.0); Immature Granulocytes % 8.5 %; Lymphocytes # 0.9 10*3/uL (1.4-4.0); Lymphocytes % 13.2 % (21.2-54.2); Mean Corpuscular HGB Conc 31.2 GM/DL (32-36); Mean Corpuscular Hemoglobin 30 PG (27-34); Mean Corpuscular Volume 96.8 FL (87-102); Monocytes # 0.9 10*3/uL (0.11-0.8); Monocytes % 12.7 % (1.7-12.7); Neutrophils # 4.5 10*3/uL (1.4-7.4); Neutrophils % 63.4 % (38.7-73.9); Platelet Count 328 T/CUMM (130-400); Red Blood Count 2.78 MC/CUMM (3.8-5.5); Red Cell Distribution Width 17.6 % (9.3-17.3); White Blood Count 7.1 T/CUMM (4-12)
[2017-09-03 05:36] LABS: Albumin 2.1 G/DL (3.4-5.0); Calcium 8.4 MG/DL (8.5-10.1); Potassium 4.3 MMOL/L (3.5-5.1)
[2017-09-03 05:44] LABS: Eosinophils 1 % (0-10); Hypochromasia 1+; Lymphocytes 16 % (20-55); Segmented Neutrophils 70 % (50-85); Total Cells Counted 100
[2017-09-03 05:45] LABS: Microcytosis 1+
[2017-09-03 05:47] LABS: Platelet Estimate Normal
[2017-09-03] MEDS: INSULIN LISPRO 100 UNIT/ML SUBCUT SCH ×4 (11:19→20:29)
[2017-09-03] MEDS: CALCIUM ACETATE 667 MG CAPSULE PO SCH ×3 (11:20→17:01)
[2017-09-03] MEDS: SIMETHICONE CHEW 125 MG TABLET PO SCH ×3 (11:22→17:28)
[2017-09-03] MEDS: LINEZOLID 600 MG TABLET PO SCH ×2 (11:23→20:28)
[2017-09-03] MEDS: DOCUSATE SODIUM 100 MG CAPSULE PO SCH ×2 (11:23→20:33)
[2017-09-03] MEDS: LISINOPRIL 20 MG TABLET PO SCH ×2 (11:23→20:28)
[2017-09-03] MEDS: oxyCODONE/ACETAMINOPHEN 5-325 MG TABLET PO PRN (11:24)
[2017-09-03] MEDS: cefTRIAXone 2,000 MG in SYRINGE 1 EACH IV SCH (16:49)
[2017-09-03] MEDS: CINACALCET 30 MG TABLET PO SCH (20:28)
[2017-09-03] MEDS: SIMVASTATIN 20 MG TABLET PO SCH (20:29)
[2017-09-04 05:01] LABS: Basophils % 0.4 % (0.0-0.8); Eosinophils # 0.1 10*3/uL (0.0-0.87); Eosinophils % 1.2 % (0.00-10.9); Hematocrit 27.1 VOL% (42.0-52.0); Hemoglobin 8.7 GM/DL (14.0-18.0); Immature Granulocytes % 8.3 %; Immature Granulocytes Absolute 0.84 #; Lymphocytes # 0.8 10*3/uL (1.4-4.0); Lymphocytes % 7.8 % (21.2-54.2); Mean Corpuscular HGB Conc 32.1 GM/DL (32-36); Mean Corpuscular Hemoglobin 30 PG (27-34); Mean Corpuscular Volume 93.8 FL (87-102); Mean Platelet Volume 10.1 FL (9.6-12.0); Monocytes # 1.1 10*3/uL (0.11-0.8); Monocytes % 10.4 % (1.7-12.7); Neutrophils # 7.3 10*3/uL (1.4-7.4); Neutrophils % 71.9 % (38.7-73.9); Platelet Count 377 T/CUMM (130-400); Red Blood Count 2.89 MC/CUMM (3.8-5.5); Red Cell Distribution Width 17.2 % (9.3-17.3); White Blood Count 10.1 T/CUMM (4-12)
[2017-09-04 05:29] LABS: Albumin 2.2 G/DL (3.4-5.0); Band Neutrophils 7 % (0-10); Calcium 8.9 MG/DL (8.5-10.1); Giant Platelets Few; Hypochromasia 1+; Lymphocytes 3 % (20-55); Microcytosis 1+; Myelocytes 1 %; Osmolality,Calculated 299.1 MOS/KG (273-304); Platelet Estimate Adequate; Potassium 4.4 MMOL/L (3.5-5.1); Segmented Neutrophils 73 % (50-85); Total Cells Counted 100
[2017-09-04] MEDS: ACETYLCYSTEINE 20% 800 MG/4 ML VIAL RESP TX SCH ×3 (07:10→20:09)
[2017-09-04] MEDS: SIMETHICONE CHEW 125 MG TABLET PO SCH ×2 (08:10→18:02)
[2017-09-04] MEDS: DOCUSATE SODIUM 100 MG CAPSULE PO SCH ×2 (08:10→21:25)
[2017-09-04] MEDS: LISINOPRIL 20 MG TABLET PO SCH ×2 (08:10→21:26)
[2017-09-04] MEDS: oxyCODONE/ACETAMINOPHEN 5-325 MG TABLET PO PRN ×2 (08:27→15:12)
[2017-09-04] MEDS: CALCIUM ACETATE 667 MG CAPSULE PO SCH ×3 (08:30→18:24)
[2017-09-04] MEDS: LINEZOLID 600 MG TABLET PO SCH ×2 (08:30→21:26)
[2017-09-04] MEDS: INSULIN LISPRO 100 UNIT/ML SUBCUT SCH ×4 (08:32→23:50)
[2017-09-04] MEDS: cefTRIAXone 2,000 MG in SYRINGE 1 EACH IV SCH (18:17)
[2017-09-04] MEDS: SIMVASTATIN 20 MG TABLET PO SCH (21:26)
[2017-09-04] MEDS: CINACALCET 30 MG TABLET PO SCH (21:26)
[2017-09-05] MEDS: ACETYLCYSTEINE 20% 800 MG/4 ML VIAL RESP TX SCH ×2 (01:02→07:01)
[2017-09-05 06:33] LABS: Basophils % 0.5 % (0.0-0.8); Eosinophils # 0.2 10*3/uL (0.0-0.87); Eosinophils % 1.8 % (0.00-10.9); Hematocrit 26.5 VOL% (42.0-52.0); Hemoglobin 8.4 GM/DL (14.0-18.0); Immature Granulocytes % 9.1 %; Lymphocytes # 1.1 10*3/uL (1.4-4.0); Mean Corpuscular HGB Conc 31.7 GM/DL (32-36); Mean Corpuscular Hemoglobin 29 PG (27-34); Mean Corpuscular Volume 92.7 FL (87-102); Mean Platelet Volume 10.1 FL (9.6-12.0); Monocytes % 11.4 % (1.7-12.7); Neutrophils # 5.7 10*3/uL (1.4-7.4); Neutrophils % 65.2 % (38.7-73.9); Platelet Count 360 T/CUMM (130-400); Red Blood Count 2.86 MC/CUMM (3.8-5.5); Red Cell Distribution Width 16.9 % (9.3-17.3); White Blood Count 8.8 T/CUMM (4-12)
[2017-09-05 06:56] LABS: Albumin 2.3 G/DL (3.4-5.0); Potassium 4.4 MMOL/L (3.5-5.1)
[2017-09-05 07:32] LABS: Band Neutrophils 4 % (0-10); Eosinophils 1 % (0-10); Giant Platelets Few; Hypochromasia 1+; Lymphocytes 13 % (20-55); Microcytosis Slight; Ovalocytes Slight; Platelet Estimate Adequate; Segmented Neutrophils 74 % (50-85); Total Cells Counted 100
[2017-09-05] MEDS: CALCIUM ACETATE 667 MG CAPSULE PO SCH ×2 (08:36→12:00)
[2017-09-05] MEDS: LINEZOLID 600 MG TABLET PO SCH (08:37)
[2017-09-05] MEDS: INSULIN LISPRO 100 UNIT/ML SUBCUT SCH ×2 (08:37→12:00)
[2017-09-05] MEDS: SIMETHICONE CHEW 125 MG TABLET PO SCH (08:37)
[2017-09-05] MEDS: DOCUSATE SODIUM 100 MG CAPSULE PO SCH (08:37)
[2017-09-05] MEDS: LISINOPRIL 20 MG TABLET PO SCH (08:37)
[2017-09-05] MEDS ORDERED: TUBERCULIN SKIN TEST 0.1 ML SYRINGE INTRADERM ONE (09:04)
[2017-09-05] MEDS: SODIUM CHLORIDE 0.9% 1,000 ML IV SCH (09:21)
[2017-09-05 12:57] VITALS: BP 110/52
== END 2017-09-05 13:24 | DRG 252 ==
LOC: N.ED 19:54 → N.EDINP 08-16 00:43 → SUATTDRO 08-16 00:43 → N.EDINP 08-16 14:37 → N.4E 08-16 18:07
PROVIDERS: ADMIT Internal Medicine Geriatric Medicine; ATTEND Internal Medicine

== ENCOUNTER 2019-05-16 13:14 | Inpatient (IN) ==
[2019-05-16 14:09] LABS: Basophils % 0.6 % (0.0-0.8); Eosinophils # 0.2 10*3/uL (0.0-0.87); Eosinophils % 3.5 % (0.00-10.9); Hematocrit 24.8 VOL% (42.0-52.0); Hemoglobin 7.9 GM/DL (14.0-18.0); Immature Granulocytes % 0.6 %; Immature Granulocytes Absolute 0.03 #; Lymphocytes # 0.9 10*3/uL (1.4-4.0); Lymphocytes % 17.1 % (21.2-54.2); Mean Corpuscular HGB Conc 31.9 GM/DL (32-36); Mean Corpuscular Volume 99.2 FL (87-102); Mean Platelet Volume 9.2 FL (9.6-12.0); Monocytes % 7.3 % (1.7-12.7); Neutrophils % 70.9 % (38.7-73.9); Platelet Count 205 T/CUMM (130-400); Red Cell Distribution Width 15.7 % (9.3-17.3); White Blood Count 5.2 T/CUMM (4-12)
[2019-05-16 15:09] LABS: Sedimentation Rate-Westergren 130 MM/HR (0-20)
[2019-05-16 16:07] LABS: Calcium 9.5 MG/DL (8.5-10.1); Osmolality,Calculated 312.8 MOS/KG (273-304)
[2019-05-16] MEDS ORDERED: LACTULOSE 20 GM/30 ML UDCUP PO PRN (18:03)
[2019-05-16] MEDS ORDERED: ZALEPLON 5 MG CAPSULE PO PRN (18:03)
[2019-05-16] MEDS ORDERED: DEXTROSE 50% 25 GM/50 ML VIAL IV PRN (18:03)
[2019-05-16] MEDS ORDERED: ONDANSETRON 4 MG/2 ML VIAL IV PRN (18:03)
[2019-05-16] MEDS ORDERED: BISACODYL 5 MG TABLET PO PRN (18:03)
[2019-05-16] MEDS ORDERED: diphenhydrAMINE CAP 25 MG CAPSULE PO PRN (18:03)
[2019-05-16] MEDS ORDERED: DEXTROSE 10% 250 ML BAG IV PRN (18:03)
[2019-05-16] MEDS ORDERED: guaiFENesin/DM ER 600-30 MG TABLET PO PRN (18:03)
[2019-05-16] MEDS ORDERED: GLUCAGON 1 MG VIAL IM PRN ×2 (18:03)
[2019-05-16] MEDS ORDERED: DOCUSATE SODIUM 100 MG CAPSULE PO PRN (18:03)
[2019-05-16] MEDS ORDERED: CALCIUM ACETATE 667 MG CAPSULE PO SCH (19:00)
[2019-05-16] MEDS: CINACALCET 30 MG TABLET PO SCH (20:44)
[2019-05-16] MEDS: SIMVASTATIN 20 MG TABLET PO SCH (20:45)
[2019-05-16] MEDS: DOXAZOSIN 1 MG TABLET PO SCH (20:45)
[2019-05-16] MEDS: INSULIN REGULAR 100 UNIT/ML SUBCUT SCH (20:46)
[2019-05-16] MEDS: ENOXAPARIN 30 MG/0.3 ML SYRINGE SUBCUT SCH (20:46)
[2019-05-17 06:02] LABS: Basophils % 0.4 % (0.0-0.8); Eosinophils # 0.2 10*3/uL (0.0-0.87); Eosinophils % 2.8 % (0.00-10.9); Hematocrit 22.3 VOL% (42.0-52.0); Immature Granulocytes % 0.9 %; Immature Granulocytes Absolute 0.05 #; Lymphocytes % 19.1 % (21.2-54.2); Mean Corpuscular HGB Conc 31.4 GM/DL (32-36); Mean Platelet Volume 9.1 FL (9.6-12.0); Monocytes % 9.2 % (1.7-12.7); Neutrophils % 67.6 % (38.7-73.9); Platelet Count 185 T/CUMM (130-400); Red Blood Count 2.23 MC/CUMM (3.8-5.5); Red Cell Distribution Width 15.6 % (9.3-17.3); White Blood Count 5.3 T/CUMM (4-12)
[2019-05-17 06:33] LABS: Albumin 2.6 G/DL (3.4-5.0); Bilirubin,Total 0.7 MG/DL (0.2-1.0); Calcium 8.7 MG/DL (8.5-10.1); Osmolality,Calculated 308.1 MOS/KG (273-304); Risk Ratio 3.03; Total Protein 6.6 G/DL (6.4-8.3); VLDL CHOLESTEROL 29.4 MG/DL
[2019-05-17] MEDS: INSULIN REGULAR 100 UNIT/ML SUBCUT SCH ×4 (09:52→21:40)
[2019-05-17] MEDS: ALLOPURINOL 300 MG TABLET PO SCH (10:07)
[2019-05-17] MEDS: PANTOPRAZOLE 40 MG TABLET PO SCH (10:07)
[2019-05-17] MEDS: LISINOPRIL 20 MG TABLET PO SCH (10:07)
[2019-05-17] MEDS: PIPERACILLIN/TAZOBACTAM 3,375 MG in SODIUM CHLORIDE 0.9% 100 ML IV SCH ×2 (11:40→21:42)
[2019-05-17] MEDS ORDERED: VANCOMYCIN INJ 2,500 MG in SODIUM CHLORIDE 0.9% 500 ML IV ONE (13:00)
[2019-05-17] MEDS: CINACALCET 30 MG TABLET PO SCH (19:26)
[2019-05-17] MEDS: DOXAZOSIN 1 MG TABLET PO SCH (21:39)
[2019-05-17] MEDS: ENOXAPARIN 30 MG/0.3 ML SYRINGE SUBCUT SCH (21:39)
[2019-05-17] MEDS: SIMVASTATIN 20 MG TABLET PO SCH (21:40)
[2019-05-18 04:35] LABS: Basophils % 0.3 % (0.0-0.8); Eosinophils # 0.2 10*3/uL (0.0-0.87); Eosinophils % 2.8 % (0.00-10.9); Hemoglobin 7.9 GM/DL (14.0-18.0); Immature Granulocytes % 1.1 %; Immature Granulocytes Absolute 0.07 #; Mean Corpuscular HGB Conc 31.6 GM/DL (32-36); Mean Corpuscular Volume 99.2 FL (87-102); Mean Platelet Volume 9.5 FL (9.6-12.0); Monocytes % 7.6 % (1.7-12.7); Neutrophils % 72.2 % (38.7-73.9); Platelet Count 203 T/CUMM (130-400); Red Blood Count 2.52 MC/CUMM (3.8-5.5); Red Cell Distribution Width 15.7 % (9.3-17.3); White Blood Count 6.5 T/CUMM (4-12)
[2019-05-18 05:02] LABS: Calcium 8.8 MG/DL (8.5-10.1); Osmolality,Calculated 309.8 MOS/KG (273-304)
[2019-05-18] MEDS ORDERED: SODIUM POLYSTYRENE SULFATE 15 GM/60 ML BOTTLE PO STA (05:41)
[2019-05-18] MEDS: INSULIN REGULAR 100 UNIT/ML SUBCUT SCH ×4 (11:17→21:27)
[2019-05-18] MEDS: PIPERACILLIN/TAZOBACTAM 3,375 MG in SODIUM CHLORIDE 0.9% 100 ML IV SCH (14:22)
[2019-05-18] MEDS: ALLOPURINOL 300 MG TABLET PO SCH (14:23)
[2019-05-18] MEDS: PANTOPRAZOLE 40 MG TABLET PO SCH (14:23)
[2019-05-18] MEDS: LISINOPRIL 20 MG TABLET PO SCH (14:23)
[2019-05-18] MEDS ORDERED: VANCOMYCIN INJ 1,000 MG in SODIUM CHLORIDE 0.9% 250 ML IV PRN (17:00)
[2019-05-18] MEDS ORDERED: VANCOMYCIN INJ 1,000 MG in SODIUM CHLORIDE 0.9% 250 ML IV ONE (17:00)
[2019-05-18] MEDS: ceFAZolin 500 MG in SYRINGE 1 EACH IV SCH (18:09)
[2019-05-18] MEDS: DOXAZOSIN 1 MG TABLET PO SCH (21:27)
[2019-05-18] MEDS: SIMVASTATIN 20 MG TABLET PO SCH (21:27)
[2019-05-18] MEDS: CINACALCET 30 MG TABLET PO SCH (21:27)
[2019-05-18] MEDS: HEPARIN 5,000 UNIT/1 ML VIAL SUBCUT SCH (21:27)
[2019-05-18] MEDS: ACETAMINOPHEN 500 MG TABLET PO PRN (23:30)
[2019-05-19 05:24] LABS: Albumin 2.7 G/DL (3.4-5.0); Bilirubin,Total 0.9 MG/DL (0.2-1.0); Calcium 8.4 MG/DL (8.5-10.1); Osmolality,Calculated 295.8 MOS/KG (273-304); Total Protein 6.7 G/DL (6.4-8.3)
[2019-05-19] MEDS: ceFAZolin 500 MG in SYRINGE 1 EACH IV SCH (05:35)
[2019-05-19] MEDS: PANTOPRAZOLE 40 MG TABLET PO SCH (10:26)
[2019-05-19] MEDS: LISINOPRIL 20 MG TABLET PO SCH (10:26)
[2019-05-19] MEDS: HEPARIN 5,000 UNIT/1 ML VIAL SUBCUT SCH ×2 (10:26→22:01)
[2019-05-19] MEDS: INSULIN REGULAR 100 UNIT/ML SUBCUT SCH ×4 (10:29→22:02)
[2019-05-19] MEDS: ALLOPURINOL 300 MG TABLET PO SCH (10:29)
[2019-05-19] MEDS: CINACALCET 30 MG TABLET PO SCH (22:02)
[2019-05-19] MEDS: SIMVASTATIN 20 MG TABLET PO SCH (22:02)
[2019-05-19] MEDS: DOXAZOSIN 1 MG TABLET PO SCH (22:02)
[2019-05-20] MEDS: INSULIN REGULAR 100 UNIT/ML SUBCUT SCH ×4 (08:13→20:50)
[2019-05-20] MEDS: HEPARIN 5,000 UNIT/1 ML VIAL SUBCUT SCH ×2 (13:28→20:53)
[2019-05-20] MEDS: PANTOPRAZOLE 40 MG TABLET PO SCH (13:28)
[2019-05-20] MEDS: ALLOPURINOL 300 MG TABLET PO SCH (13:28)
[2019-05-20] MEDS: LISINOPRIL 20 MG TABLET PO SCH (13:28)
[2019-05-20] MEDS: CALCIUM ACETATE 667 MG CAPSULE PO SCH (16:22)
[2019-05-20] MEDS ORDERED: ceFAZolin 2,000 MG in PREMIX 1 EACH IV SCH (17:00)
[2019-05-20] MEDS: CINACALCET 30 MG TABLET PO SCH ×2 (17:49→18:23)
[2019-05-20] MEDS: DOXAZOSIN 1 MG TABLET PO SCH (20:50)
[2019-05-20] MEDS: SIMVASTATIN 20 MG TABLET PO SCH (20:50)
[2019-05-20] MEDS: ACETAMINOPHEN 500 MG TABLET PO PRN (22:58)
[2019-05-21] MEDS: INSULIN REGULAR 100 UNIT/ML SUBCUT SCH ×4 (07:49→20:21)
[2019-05-21] MEDS: CALCIUM ACETATE 667 MG CAPSULE PO SCH ×3 (07:54→17:05)
[2019-05-21] MEDS: HEPARIN 5,000 UNIT/1 ML VIAL SUBCUT SCH ×2 (08:34→20:10)
[2019-05-21] MEDS ORDERED: TUBERCULIN SKIN TEST 0.1 ML SYRINGE INTRADERM ONE (10:03)
[2019-05-21] MEDS: ALLOPURINOL 300 MG TABLET PO SCH (10:05)
[2019-05-21] MEDS: LISINOPRIL 20 MG TABLET PO SCH (10:06)
[2019-05-21] MEDS: PANTOPRAZOLE 40 MG TABLET PO SCH (10:11)
[2019-05-21 13:24] LABS: Basophils % 0.8 % (0.0-0.8); Eosinophils # 0.3 10*3/uL (0.0-0.87); Eosinophils % 5.2 % (0.00-10.9); Hematocrit 24.8 VOL% (42.0-52.0); Hemoglobin 7.7 GM/DL (14.0-18.0); Immature Granulocytes % 3.3 %; Immature Granulocytes Absolute 0.16 #; Lymphocytes # 0.9 10*3/uL (1.4-4.0); Lymphocytes % 19.5 % (21.2-54.2); Mean Corpuscular Volume 100.8 FL (87-102); Mean Platelet Volume 9.4 FL (9.6-12.0); Monocytes % 7.9 % (1.7-12.7); Neutrophils % 63.3 % (38.7-73.9); Platelet Count 224 T/CUMM (130-400); Red Blood Count 2.46 MC/CUMM (3.8-5.5); Red Cell Distribution Width 15.5 % (9.3-17.3); White Blood Count 4.8 T/CUMM (4-12)
[2019-05-21 13:57] LABS: Calcium 9.1 MG/DL (8.5-10.1); Osmolality,Calculated 296.8 MOS/KG (273-304)
[2019-05-21] MEDS: CINACALCET 30 MG TABLET PO SCH (18:25)
[2019-05-21] MEDS: SIMVASTATIN 20 MG TABLET PO SCH (20:10)
[2019-05-21] MEDS: DOXAZOSIN 1 MG TABLET PO SCH (20:10)
[2019-05-22] MEDS: ACETAMINOPHEN 500 MG TABLET PO PRN ×2 (01:15→22:45)
[2019-05-22 05:46] LABS: Basophils % 0.6 % (0.0-0.8); Eosinophils # 0.2 10*3/uL (0.0-0.87); Eosinophils % 4.5 % (0.00-10.9); Hematocrit 22.7 VOL% (42.0-52.0); Hemoglobin 7.2 GM/DL (14.0-18.0); Immature Granulocytes % 2.5 %; Immature Granulocytes Absolute 0.13 #; Lymphocytes % 20.4 % (21.2-54.2); Mean Corpuscular HGB Conc 31.7 GM/DL (32-36); Mean Corpuscular Volume 99.1 FL (87-102); Mean Platelet Volume 9.4 FL (9.6-12.0); Monocytes % 8.4 % (1.7-12.7); Neutrophils % 63.6 % (38.7-73.9); Platelet Count 215 T/CUMM (130-400); Red Blood Count 2.29 MC/CUMM (3.8-5.5); Red Cell Distribution Width 15.3 % (9.3-17.3); White Blood Count 5.1 T/CUMM (4-12)
[2019-05-22 06:06] LABS: Calcium 8.8 MG/DL (8.5-10.1); Osmolality,Calculated 300.4 MOS/KG (273-304)
[2019-05-22] MEDS: INSULIN REGULAR 100 UNIT/ML SUBCUT SCH ×4 (09:10→21:44)
[2019-05-22] MEDS: CALCIUM ACETATE 667 MG CAPSULE PO SCH ×3 (13:31→17:10)
[2019-05-22] MEDS: HEPARIN 5,000 UNIT/1 ML VIAL SUBCUT SCH ×2 (13:31→21:43)
[2019-05-22] MEDS: ALLOPURINOL 300 MG TABLET PO SCH (13:44)
[2019-05-22] MEDS: LISINOPRIL 20 MG TABLET PO SCH (13:44)
[2019-05-22] MEDS: PANTOPRAZOLE 40 MG TABLET PO SCH (13:44)
[2019-05-22] MEDS ORDERED: CINACALCET 30 MG TABLET PO SCH (21:00)
[2019-05-22] MEDS: DOXAZOSIN 1 MG TABLET PO SCH (21:45)
[2019-05-22] MEDS: SIMVASTATIN 20 MG TABLET PO SCH (21:45)
[2019-05-23 08:06] VITALS: BP 156/70
[2019-05-23] MEDS: INSULIN REGULAR 100 UNIT/ML SUBCUT SCH (08:56)
[2019-05-23] MEDS: HEPARIN 5,000 UNIT/1 ML VIAL SUBCUT SCH (09:09)
[2019-05-23] MEDS: ALLOPURINOL 300 MG TABLET PO SCH (09:09)
[2019-05-23] MEDS: LISINOPRIL 20 MG TABLET PO SCH (09:10)
[2019-05-23] MEDS: CALCIUM ACETATE 667 MG CAPSULE PO SCH (09:10)
[2019-05-23] MEDS: PANTOPRAZOLE 40 MG TABLET PO SCH (09:12)
== END 2019-05-23 10:53 | DRG 564 ==
LOC: EDUNIT# → EDBD → N.ED 13:14 → SUATTDRO 18:03 → N.EDINP 18:03 → N.5E 19:07 → N.TELEN 05-22 12:36
PROVIDERS: ADMIT Internal Medicine; ATTEND Internal Medicine Cardiovascular Disease

== ENCOUNTER 2020-09-17 08:41 | Observation (INO) ==
[2020-09-17 10:42] LABS: Basophils % 0.7 % (0.0-0.8); Eosinophils # 0.2 10*3/uL (0.0-0.87); Eosinophils % 4.5 % (0.00-10.9); Hematocrit 34.1 VOL% (42.0-52.0); Hemoglobin 11.3 GM/DL (14.0-18.0); Immature Granulocytes % 0.5 %; Immature Granulocytes Absolute 0.02 #; Lymphocytes # 1.1 10*3/uL (1.4-4.0); Mean Corpuscular HGB Conc 33.1 GM/DL (32-36); Mean Corpuscular Volume 104.6 FL (87-102); Mean Platelet Volume 9.7 FL (9.6-12.0); Monocytes % 8.4 % (1.7-12.7); Neutrophils % 60.9 % (38.7-73.9); Platelet Count 134 T/CUMM (130-400); Red Blood Count 3.26 MC/CUMM (3.8-5.5); Red Cell Distribution Width 15.6 % (9.3-17.3); White Blood Count 4.4 T/CUMM (4-12)
[2020-09-17 11:08] LABS: Calcium 9.2 MG/DL (8.5-10.1); Osmolality,Calculated 290.7 MOS/KG (273-304); Potassium 3.9 MMOL/L (3.5-5.1)
[2020-09-17 11:19] LABS: Anisocytosis 1+; Platelet Estimate Adequate
[2020-09-17 11:20] LABS: Macrocytosis 1+
[2020-09-17] MEDS ORDERED: ONDANSETRON 4 MG/2 ML VIAL IV PRN (13:01)
[2020-09-17] MEDS ORDERED: ACETAMINOPHEN 325 MG TABLET PO PRN (13:01)
[2020-09-17] MEDS ORDERED: INFLUENZA VIRUS VACCINE 0.5 ML SYRINGE IM ONE (14:44)
[2020-09-18] MEDS ORDERED: CLINDAMYCIN INJ 900 MG in PREMIX 1 EACH IV ONE (06:30)
[2020-09-18] MEDS ORDERED: LIDOCAINE 1% 20 ML VIAL ONE (06:37)
[2020-09-18] MEDS ORDERED: HEPARIN 5,000 UNIT/1 ML VIAL ONE (06:37)
[2020-09-18] MEDS ORDERED: BUPIVACAINE MPF 0.25% 30 ML VIAL ONE (06:37)
[2020-09-18] MEDS ORDERED: LIDOCAINE 2% 5 ML VIAL ONE (06:44)
[2020-09-18] MEDS ORDERED: ETOMIDATE 40 MG/20 ML VIAL IV ONE (06:45)
[2020-09-18] MEDS ORDERED: fentaNYL 100 MCG/2 ML VIAL ONE (06:45)
[2020-09-18] MEDS ORDERED: MIDAZOLAM 2 MG/2 ML VIAL ONE (06:45)
[2020-09-18] MEDS ORDERED: DEXAMETHASONE 4 MG/1 ML VIAL ONE (06:45)
[2020-09-18] MEDS ORDERED: propofoL 200 MG/20 ML VIAL IV ONE (06:45)
[2020-09-18] MEDS ORDERED: DEXMEDETOMIDINE 200 MCG/2 ML VIAL ONE (06:45)
[2020-09-18] MEDS ORDERED: ONDANSETRON 4 MG/2 ML VIAL ONE (06:45)
[2020-09-18 07:25] LABS: Calcium 9.5 MG/DL (8.5-10.1); Osmolality,Calculated 284.5 MOS/KG (273-304)
[2020-09-18] MEDS ORDERED: PHENYLEPHRINE 1 MG/10 ML SYRINGE IV ONE (07:42)
[2020-09-18] MEDS ORDERED: GLUCAGON 1 MG VIAL IM PRN (08:56)
[2020-09-18] MEDS ORDERED: DEXTROSE 50% 25 GM/50 ML VIAL IV PRN (08:56)
[2020-09-18] MEDS: INSULIN REGULAR 100 UNIT/ML SUBCUT SCH ×3 (12:38→20:56)
[2020-09-18] MEDS ORDERED: LOPERAMIDE 2 MG CAPSULE PO PRN (13:24)
[2020-09-19] MEDS: INSULIN REGULAR 100 UNIT/ML SUBCUT SCH ×3 (08:48→16:49)
[2020-09-19] MEDS ORDERED: HEPARIN 10,000 UNIT/10 ML VIAL IV SCH (12:00)
[2020-09-19 14:18] VITALS: BP 125/67
== END 2020-09-19 16:55 | disposition home or self-care (01) ==
LOC: N.ED 08:41 → N.EDINP 08:41 → N.3E 13:30
PROVIDERS: ADMIT Surgery; ATTEND Surgery